=== PATIENT | female | born 1955 | race Caucasian/White ===

== ENCOUNTER 2018-02-20 17:41 | Observation (INO) ==
[2018-02-20 18:08] LABS: Microscopic, Urine URINE MICROSCOPIC (MICROSCOPIC)
[2018-02-20 18:11] LABS: Appearance,Urine CLOUDY (Clear); Blood, Urine TRACE-L (Negative); Color,Urine ORANGE (Yellow); Glucose,Urine (UA) Negative (Negative); Ketones,Urine 1+ (Negative); Leukocyte Esterase,Urine TRACE (Negative); Protein,Urine Negative (Negative); Specific Gravity, Urine 1.015 (1.005-1.030)
[2018-02-20 18:18] LABS: Bacteria,Urine 3+ /lpf; Mucus,Urine 2+ /lpf
[2018-02-20 18:19] LABS: Bilirubin,Urine Negative (Negative)
--- NOTE | 2018-02-20 18:23 | Emergency Department Note ---
ED Disposition Condition on Discharge: Fair - Critical Care Critical Care Time: No <Ana Elizabeth - Last Filed: 02/20/18 18:48> <Noah Lu - Last Filed: 02/20/18 20:49> Clinical Impression: Colitis Abdominal pain Qualifiers: Abdominal location: lower abdomen, unspecified Qualified Code(s): R10.30 - Lower abdominal pain, unspecified Diverticulosis Qualifiers: Diverticulosis site: diverticulosis of large intestine Diverticulosis bleeding : diverticulosis with bleeding Qualified Code(s): K57.31 - Diverticulosis of large intestine without perforation or abscess with bleeding Disposition: Still a Patient Referrals: Treva Abraham APRN [Primary Care Provider] - Attestation: On 02/20/18, the high probability of a clinically significant, sudden or life threatening deterioration of the following system(s) required my full and direct attention, intervention and personal management. The time I documented below is in addition to time spent performing reported procedures but includes the following listed in this critical care notation. Medical Decision Making - Levy Inquiry Pt receiving controlled substance: No Levy was queried for this patient: No <Ana Elizabeth - Last Filed: 02/20/18 18:48> - Lab Data Lab results reviewed: Yes: I reviewed the patient's lab results. Result diagrams: 02/20/18 18:30 02/20/18 18:30 - CT Data CT Scan: Abdomen, Pelvis Time Received: 20:[address] Reviewed: Yes: I have viewed the radiologist's interpretation Preliminary Findings: Abnormal (colitis) - Physician Consults Physician Consulted: oscar Reason -: Admission <Noah Lu - Last Filed: 02/20/18 20:49> Vital Signs: 02/20/18 17:48 02/20/18 18:43 Temperature 97.8 F 98.4 F Temperature Source Oral Oral Pulse Rate [Right Radial] 62 65 Respiratory Rate 16 16 Blood Pressure [Left Arm] 103/72 126/78 Blood Pressure Mean [Left Arm] 82 94 02 Sat by Pulse Oximetry 99 100 - Lab Data Lab Results 02/20/18 18:04: Urine Color [place], Urine Appearance Cloudy, Urine pH 7.0, Ur Specific [place] 1.015, Urine Protein Negative, Urine Glucose (UA) Negative, Urine Ketones 1+, Urine Blood Trace-l, Urine Nitrate Negative, Urine Bilirubin Negative, Urine Urobilinogen 4.0, Ur Leukocyte Esterase Trace, Urine WBC 10-20, Ur Squamous Epith Cells 5-10, Urine Bacteria 3+, Urine Mucus 2+ 02/20/18 18:30: WBC 10.1, RBC 5.40, Hgb 16.0, Hct 49.2 H, MCV 91.1, MCH 29.6, MCHC 32.5, RDW 12.8, Plt Count 258, MPV 8.1, Neut % (Auto) 75.5, Lymph % (Auto) 17.9, [place] % (Auto) 5.4, Eos % (Auto) 0.6, Baso % (Auto) 0.6, Neut # (Auto) 7.7 , Lymph # (Auto) 1.8, [place] # (Auto) 0.6, Eos # (Auto) 0.1, Baso # (Auto) 0.1 02/20/18 18:30: Sodium 138, Potassium 4.1, Chloride 99, Carbon Dioxide 27, Anion Gap 16.1 H, BUN 19 H, Creatinine 0.82, Estimated Creat Clear 83, Estimated GFR 70, Est GFR ( Amer) 85, Glucose 158 H, Calcium 9.7, Total Bilirubin 0.9, AST 14 L, ALT 24, Alkaline Phosphatase 86, Total Protein 8.3 H, Albumin 3.8, Globulin 4.5 H, Albumin/Globulin Ratio 0.8 L, Lipase 86 02/20/18 18:30: Magnesium 2.0 02/20/18 18:30: Lactic Acid 1.9 Orders (Tests/Meds): ED MEDICATIONS Discontinued Medications Generic Name Dose Route Start Last Admin Trade Name Freq PRN Reason Stop Dose Admin Sodium Chloride 1,000 mls @ 999 mls/hr 02/20/18 18:30 02/20/18 18:30 Sod Chlor 0.9% 1000ml Bag IV 02/20/18 19:30 999 mls/hr .Q1H1M CAT Administration Iopamidol 75 ml 02/20/18 20:02 02/20/18 20:04 [id number]; 75ml Vial IV 02/20/18 20:03 75 ml ONCE ONE Administration Morphine Sulfate 2 mg 02/20/18 18:18 02/20/18 18:30 Morphine 2mg/Ml Syringe IV 02/20/18 18:19 2 mg ONCE ONE Administration Ondansetron HCl 4 mg 02/20/18 18:18 02/20/18 18:30 Zofran 4mg/2ml Vial IV 02/20/18 18:19 4 mg ONCE ONE Administration Sodium Chloride 10 ml 02/20/18 20:02 02/20/18 20:04 Rad-Saline Flush 10ml Syringe IV 02/20/18 20:03 10 ml ONCE ONE Administration ORDERS Category Date Time Status CT abdomen pelvis w con Stat Cat Scan 02/20/18 18:18 Taken ESR [Erythrocyte Sedimentation Rate] Stat Lab 02/20/18 20:41 Ordered Blood Culture Stat Micro 02/20/18 18:30 Received Urine Culture Stat Micro 02/20/18 18:04 Received Abdominal Pain HPI - General Mode of Arrival: Ambulatory Limitations: No Limitations Description of Symptoms (Recalled from ER Triage Doc. by RN): LLQ ABD PAIN DIZZINESS AND LIGHTHEADEDNESS SINCE TUESDAY. VOMITING AN DIARRHEA SINCE YESTERDAY. PT HAS HX OF DIVERTICULOSIS. - History of Present Illness MD complaint: abdominal pain Onset (ago): day(s) (x 2 days.) Consistency: constant Severity: moderate Severity scale (1-10): 6 Quality: sharp Migration to: LLQ Relieving factors: nothing Exacerbating factors: vomiting Associated symptoms: nausea, vomiting, diarrhea <Ana Elizabeth - Last Filed: 02/20/18 18:48> <Noah Lu - Last Filed: 02/20/18 20:49> - General Chief Complaint: Abdominal Pain Stated Complaint: Abd pain Time Seen by Provider: 02/20/18 18:00 - History of Present Illness HPI narrative: 62 years old white female with history of diverticulosis and diverticulitis. For the past 2 days she has been experiencing left lower quadrant pain sharp in character associated with vomiting 4 a day diarrhea 2 a day. She denies having hematemesis coffee-ground emesis melanotic stool or bleeding per rectum. She feels that she is getting dehydrated and feeling dizzy. (Ana Elizabeth) - Related Data Home Medications Medication Instructions Recorded Confirmed Pantoprazole Sodium [Protonix 40mg 40 mg PO DAILY 02/20/18 02/20/18 tablet] Phentermine HCl [Adipex-P] 37.5 mg PO DAILY 02/20/18 02/20/18 Tramadol HCl [Ultram Take Home 1 tab PO NEEDED PRN 02/20/18 02/20/18 Pack 50mg (10)] Allergies Allergy/AdvReac Type Severity Reaction Status Date / Time codeine [CODEINE] Allergy Mild NA-NAUSEA/V Verified 02/20/18 17:57 OMITING hydrocodone [HYDROCODONE] Allergy Mild NA-NAUSEA/V Verified 02/20/18 17:57 OMITING [facility] History I have reviewed the patient's past medical history: Yes (Patient quit taking her medications because she is losing weight. ) Medical History: Reports:: Diabetes Mellitus Type 2 Denies:: Cancer, Diabetes Mellitus Type 1, MRSA Laterality Cases: Left: Total Knee Replacement Amputation: No - Social History Alcohol Intake: never - Psychiatric History Expresses thoughts of harming self/others: None Suicide Plan Description: No Plan <DaltonmaishaAna - Last Filed: 02/20/18 18:48> ROS Obtained: Yes All systems reviewed & no additional complaints <DaltonmaishaAugustinanaldo - Last Filed: 02/20/18 18:48> Physical Exam - General General appearance: alert, in no apparent distress - Head Head exam: atraumatic, normocephalic, normal inspection - Eye Eye exam: Present: normal appearance, PERRL, EOMI - ENT ENT exam: Present: normal exam, normal oropharynx, mucous membranes moist, TM's normal bilaterally, normal external ear exam - Neck Neck exam: Present: normal inspection, full ROM, trachea midline. Absent: meningismus, lymphadenopathy - Chest Chest inspection: Present: normal inspection, symmetric chest wall rise. Absent : tenderness - Respiratory Respiratory exam: Present: normal lung sounds bilaterally. Absent: respiratory distress - Cardiovascular Cardiovascular exam: Present: regular rate, normal rhythm. Absent: JVD - Abdominal Exam Abdominal exam: Present: soft, tenderness, normal bowel sounds, other (Soft obese abdomen with left lower quadrant tenderness no rebound or cross tenderness.). Absent: distention, guarding, rebound, rigidity, Rivas's sign, tenderness at McBurney's Point - Extremities Exam Extremities exam: Present: normal inspection, full ROM, normal capillary refill. Absent: calf tenderness - Back Exam Back exam: Present: normal inspection. Absent: tenderness - Neurological Exam Neurological exam: Present: alert, oriented X3, CN II-XII intact, motor sensory deficit, reflexes normal - Psychiatric Psychiatric exam: Present: normal affect, normal mood - Skin Skin exam: Present: warm, dry, intact, normal color - Lymphatic Lymphatic Findings: no adenopathy <Ana Elizabeth - Last Filed: 02/20/18 18:48>
[2018-02-20 18:53] LABS: Basophils # 0.1 K/mm3 (0-0.2); Basophils % 0.6 % (0.1-2.0); Eosinophils # 0.1 K/mm3 (0.0-0.4); Eosinophils % 0.6 % (0.1-12.0); Hematocrit 49.2 % (37.0-47.0); Lymphocytes # 1.8 K/mm3 (0.7-4.5); Lymphocytes % 17.9 K/mm3 (10-50); Mean Corpuscular HGB Conc 32.5 g/dL (31.8-35.4); Mean Corpuscular Hemoglobin 29.6 pg (27.0-31.2); Mean Corpuscular Volume 91.1 fl (81-99); Mean Platelet Volume 8.1 fl (7.4-10.4); Monocytes # 0.6 K/mm3 (0.1-1.0); Monocytes % 5.4 % (1.7-9.3); Neutrophils # 7.7 K/mm3 (1.8-7.8); Neutrophils % 75.5 % (37.0-80.0); Platelet Count 258 K/mm3 (142-424); Red Cell Distribution Width 12.8 % (11.5-17.5); White Blood Count 10.1 K/mm3 (4.8-10.8)
[2018-02-20 19:06] LABS: Albumin Level 3.8 gm/dL (3.4-5.0); Albumin/Globulin Ratio 0.8 (1.1-1.8); Anion Gap 16.1 mEq/L (5-15); Bilirubin,Total 0.9 mg/dL (0.2-1.0); Calcium 9.7 mg/dL (8.5-10.1); Globulin 4.5 gm/dl (1.3-3.2); Potassium 4.1 mmoL/L (3.5-5.1); Total Protein,Serum 8.3 gm/dL (6.4-8.2)
[2018-02-21 06:47] LABS: Basophils % 0.5 % (0.1-2.0); Eosinophils # 0.1 K/mm3 (0.0-0.4); Lymphocytes # 2.6 K/mm3 (0.7-4.5); Lymphocytes % 31.3 K/mm3 (10-50); Mean Corpuscular Hemoglobin 29.3 pg (27.0-31.2); Mean Corpuscular Volume 91.6 fl (81-99); Mean Platelet Volume 7.9 fl (7.4-10.4); Monocytes # 0.5 K/mm3 (0.1-1.0); Monocytes % 5.7 % (1.7-9.3); Neutrophils # 5.2 K/mm3 (1.8-7.8); Neutrophils % 61.5 % (37.0-80.0); Platelet Count 233 K/mm3 (142-424); Red Blood Count 4.61 M/mm3 (4.20-5.40); Red Cell Distribution Width 12.7 % (11.5-17.5); White Blood Count 8.4 K/mm3 (4.8-10.8)
[2018-02-21 06:54] LABS: Hematocrit 42.1 % (37.0-47.0); Hemoglobin 13.6 g/dL (12.2-16.2)
[2018-02-21 06:57] LABS: Anion Gap 8.9 mEq/L (5-15); Potassium 3.9 mmoL/L (3.5-5.1)
--- NOTE | 2018-02-21 07:24 | Pharmacy Consult Notes ---
[facility] Pharmacy VTE Monitoring - Patient Demographics Admission date: 02/20/18 Report Date: 02/21/18 Time: 07:24 Allergies/Adverse Reactions: Patient Allergies codeine [CODEINE] Allergy (Mild, Verified 02/20/18 17:57) NA-NAUSEA/VOMITING hydrocodone [HYDROCODONE] Allergy (Mild, Verified 02/20/18 17:57) NA-NAUSEA/VOMITING Height: 1.52 m Weight: 92.788 kg Patient Problems: Current Active Problems Diverticulosis (Acute) Abdominal pain (Acute) Colitis (Acute) - VTE Risk Labs: VTE Related Lab Results Hgb 13.6 g/dL (12.2-16.2) D 02/21/18 06:20 Hct 42.1 % (37.0-47.0) 02/21/18 06:20 Plt Count 233 K/mm3 (142-424) 02/21/18 06:20 BUN 14 mg/dL (7-18) D 02/21/18 06:20 Creatinine 0.68 mg/dL (0.55-1.02) 02/21/18 06:20 Estimated Creat Clear 84 mL/min (0-300) 02/21/18 06:20 Was VTE Risk Assessment Performed: Yes VTE Risk Level: Very Low Risk - Prophylaxis VTE Prophylaxis Ordered?: Yes Types of VTE Prophylaxis: TEDS Knee High Location of Applied Device: Bilateral Lower Extremeties - VTE Diagnosis Confirmed Treatment or plan recommended: Continue Current Treatment
--- NOTE | 2018-02-21 07:37 | History & Physical Report ---
*Admission Date: 02/20/18 *Chief complaint: Left lower quadrant abdominal *History of present illness: 62-year-old female with history of diverticulosis and diverticulitis presented to the emergency department with a 3 day history of left lower quadrant abdominal pain. Symptoms began on February 18 and were somewhat reminiscent of prior bouts of diverticulitis. Patient developed associated nausea and vomiting with inability to keep solids or liquids down. She denies fevers and has had infrequent episodes of diarrhea. When symptoms were not improving she sought treatment at the emergency department. In the emergency department workup was significant for a CT scan that revealed colitis of the descending colon without diverticulitis. Patient was admitted and placed on Levaquin and Flagyl as well as IV fluids. This morning she claims she is already feeling significantly improved. She denies nausea this morning. Last bowel movement was yesterday. [facility] History Medical History: Reports:: Diabetes Mellitus Type 2 (no insulin required, controled with diet) Denies:: Cancer, Diabetes Mellitus Type 1, MRSA Comment: Diverticulitis Laterality Cases: Left: Total Knee Replacement Other Surgeries: Yes: Appendectomy, Cholecystectomy Amputation: No - *Social History Educational Level: Completed GED/General Educational Development Smoking Status: Never smoker Alcohol Intake: never Occupational Status: employed Housing: house Household Members: children - Psychiatric History Expresses thoughts of harming self/others: None Suicide Plan Description: No Plan *Family Hx:: Asthma, Coronary Artery Disease, Diabetes, Hyperlipidemia, Hypertension, Stroke Review of Systems - Review of Systems Review of systems:: pertinent systems reviewed and negative unless documented below - Constitutional Reports chills, Denies fever(s) - *Gastrointestinal Reports abdominal pain Meds Home Medications Medication Instructions Recorded Confirmed Type Cholecalciferol (Vitamin D3) 50,000 unit PO DIRECTED 02/20/18 02/21/18 History [Vitamin D3 50,000 unit Cap] L.acidoph,Paracasei, B.lactis 1 each PO DAILY 02/20/18 02/20/18 History [Probiotic] Pantoprazole Sodium [Protonix 40mg 40 mg PO DAILY 02/20/18 02/20/18 History tablet] Phentermine HCl [Adipex-P] 37.5 mg PO DAILY 02/20/18 02/20/18 History Tramadol HCl [Ultram Take Home 1 tab PO NEEDED PRN 02/20/18 02/20/18 History Pack 50mg (10)] Allergies Allergy/AdvReac Type Severity Reaction Status Date / Time codeine [CODEINE] Allergy Mild NA-NAUSEA/V Verified 02/20/18 17:57 OMITING hydrocodone [HYDROCODONE] Allergy Mild NA-NAUSEA/V Verified 02/20/18 17:57 OMITING Exam Vital signs and Labs for Last 24 Hours: Temp Pulse Resp BP Pulse Ox 98.4 F 64 16 101/52 97 02/21/18 03:43 02/21/18 03:43 02/21/18 03:43 02/21/18 03:43 02/21/18 03:43 Laboratory Results - last 24 hr 02/21/18 06:20: WBC 8.4, RBC 4.61, Hgb 13.6 D, Hct 42.1, MCV 91.6, MCH 29.3, MCHC 32.0, RDW 12.7, Plt Count 233, MPV 7.9, Neut % (Auto) 61.5, Lymph % (Auto) 31.3, [place] % (Auto) 5.7, Eos % (Auto) 1.0, Baso % (Auto) 0.5, Neut # (Auto) 5.2 , Lymph # (Auto) 2.6, [place] # (Auto) 0.5, Eos # (Auto) 0.1, Baso # (Auto) 0.0 02/21/18 06:20: Sodium 139, Potassium 3.9, Chloride 107, Carbon Dioxide 27, Anion Gap 8.9, BUN 14 D, Creatinine 0.68, Estimated Creat Clear 84, Estimated GFR 87, Est GFR ( Amer) 106 D, Glucose 114 H D I & O for Last 24 hours: Intake & Output 02/18/18 02/19/18 02/20/18 02/21/18 11:59 11:59 11:59 11:59 Intake Total 705 / 705 Output Total 600 / 600 Balance 105 / 105 Weight 204 lb 9 oz Narrative: Patient appears comfortable. HEENT exam is grossly normal. Lungs are clear to auscultation. Heart has a regular rate and rhythm. Abdomen is obese, soft, nontender with normal bowel sounds. H&P: Result - Labs Labs: Short CBC 02/21/18 Range/Units 06:20 WBC 8.4 (4.8-10.8) K/mm3 Hgb 13.6 D (12.2-16.2) g/dL Hct 42.1 (37.0-47.0) % Plt Count 233 (142-424) K/mm3 BMP 02/21/18 06:20 Sodium 139 Potassium 3.9 Chloride 107 Carbon Dioxide 27 BUN 14 D Creatinine 0.68 Glucose 114 H D Assessment and Plan (1) Colitis Current visit: Yes Status: Acute Category: Medical Code(s): K52.9 - Noninfective gastroenteritis and colitis, unspecified - Assessment and plan all Dx Assessment and Plan for all problems:: 1. Continue IV fluids and antibiotics and advance diet to clears 2. Diarrhea panel if patient is able to produce one.
--- NOTE | 2018-02-21 20:21 | Discharge Summary ---
General - General Admission date: 02/20/18 Discharge date: 02/22/18 HPI HPI: 62-year-old female with history of diverticulosis and diverticulitis presented to the emergency department with a 3 day history of left lower quadrant abdominal pain. Symptoms began on February 18 and were somewhat reminiscent of prior bouts of diverticulitis. Patient developed associated nausea and vomiting with inability to keep solids or liquids down. She denies fevers and has had infrequent episodes of diarrhea. When symptoms were not improving she sought treatment at the emergency department. In the emergency department workup was significant for a CT scan that revealed colitis of the descending colon without diverticulitis. Patient was admitted and placed on Levaquin and Flagyl as well as IV fluids. This morning she claims she is already feeling significantly improved. She denies nausea this morning. Last bowel movement was yesterday. Hospital Course Hospital Course: Patient was admitted and placed on Levaquin and Flagyl. By the following morning of admission the patient's abdominal pain had resolved. Diet was advanced to clears which cause minimal nausea but no recurrence of pain. After an additional 24 hours of observation patient's pain still had not returned. Diet was advanced to low residue which the patient tolerated. Patient was discharged home. Objective Vital signs: Temp Pulse Resp BP Pulse Ox 98.7 F 71 18 124/82 97 02/21/18 15:26 02/21/18 15:26 02/21/18 15:26 02/21/18 15:26 02/21/18 15:26 Results Labs on day of discharge: Labs from last 24 hours 02/21/18 02/21/18 06:20 06:20 WBC 8.4 RBC 4.61 Hgb 13.6 D Hct 42.1 MCV 91.6 MCH 29.3 MCHC 32.0 RDW 12.7 Plt Count 233 MPV 7.9 Neut % (Auto) 61.5 Lymph % (Auto) 31.3 [place] % (Auto) 5.7 Eos % (Auto) 1.0 Baso % (Auto) 0.5 Neut # (Auto) 5.2 Lymph # (Auto) 2.6 [place] # (Auto) 0.5 Eos # (Auto) 0.1 Baso # (Auto) 0.0 Sodium 139 Potassium 3.9 Chloride 107 Carbon Dioxide 27 Anion Gap 8.9 BUN 14 D Creatinine 0.68 Estimated Creat Clear 84 Estimated GFR 87 Est GFR ( Amer) 106 D Glucose 114 H D DS: Diagnosis - Discharge Diagnosis (1) Colitis Status: Acute Discharge Plan - Patient Discharge Instructions ACTIVITY: Continue current activity DIET: continue same diet - Follow up Plan Disposition: Home, Self-Detention Medications: Home Medications Medication Instructions Recorded Confirmed Type Cholecalciferol (Vitamin D3) 50,000 unit PO WEEKLY 02/20/18 02/21/18 History [Vitamin D3 50,000 unit Cap] L.acidoph,Paracasei, B.lactis 1 each PO DAILY 02/20/18 02/20/18 History [Probiotic] Pantoprazole Sodium [Protonix 40mg 40 mg PO HS 02/20/18 02/21/18 History tablet] Phentermine HCl [Adipex-P] 37.5 mg PO DAILY 02/20/18 02/20/18 History Tramadol HCl [Ultram 50mg 50 mg PO NEEDED PRN 02/21/18 02/21/18 History tablet] Prescriptions/Medication Reconciliation: New metroNIDAZOLE [metroNIDAZOLE 500mg Tablet] 500 mg PO Q8 #21 tab Continue Phentermine HCl [Adipex-P] 37.5 mg PO DAILY Cholecalciferol (Vitamin D3) [Vitamin D3 50,000 unit Cap] 50,000 unit PO WEEKLY Pantoprazole Sodium [Protonix 40mg tablet] 40 mg PO HS L.acidoph,Paracasei, B.lactis [Probiotic] 1 each PO DAILY Tramadol HCl [Ultram 50mg tablet] 50 mg PO NEEDED PRN PRN Reason: PAIN
[2018-02-22 07:37] VITALS: BP 118/59
== END 2018-02-22 10:44 | disposition home or self-care (01) ==
LOC: ER 17:41 → 2ND 17:41
PROVIDERS: ADMIT Family Medicine; ATTEND Family Medicine

== ENCOUNTER → 2018-06-01 09:08 | Outpatient (CLI) | payer BC, SELFPAY ==
--- NOTE | 2018-06-01 09:08 | XR_ITS ---
XR foot wt bearing LT 3V, XR foot wt bearing RT 3V Ordering Physician: Trina Sanchez DPM Patient Age: 63 years: Female HISTORY: ITS.REASON: pain Foot pain. Right greater than left Diabetes. TECHNIQUE: Left foot 3 view weightbearing Right foot 3 view weightbearing ===== RIGHT FOOT 3 VIEW WEIGHTBEARINGS There are degenerative changes more evident here at the right foot. Joint space narrowing and sclerosis about the first are/metatarsal joint. With this there is slight dorsal buttressing hypertrophic changes at these joints is well as seen on the lateral view.. With a changes at these levels are clearly more evident right foot than left foot. On also note that they seem to have progressed since 2016 right foot study. . There is prominence at the medial aspect of first metatarsal head with perhaps trace hallux valgus again noted similar to 2010 study.Subtle broadening towards the base of third metatarsal which could reflect old trauma or old healed fracture here.. Correlation required. Modest plantar arch. . prominent Plantar calcaneal spur measuring over 10 mm length. Only scant wispy spurring at insertion of Achilles tendon IMPRESSION: 1. 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 .. Findings at this level clearly More pronounced at right foot than left. & Appear to progressed slightly since 2016 2.. Fairly prominent plantar calcaneal spur ==== LEFT FOOT 3 VIEW WEIGHTBEARING Toes unremarkable.The metatarsals intact. Joint spaces well-maintained. Only question some mild sclerotic changes at the first and second [id number]. Minimal plantar arch. IMPRESSION No prominent findings Only scant early arthritic changes first & second tarsal- metatarsal joint Fairly prominent plantar calcaneal spur
== END ==
PROVIDERS: Visit Provider Podiatrist
DX: M79.671 Pain in right foot (principal); M79.672 Pain in left foot
CPT/HCPCS: 73630

== ENCOUNTER → 2018-06-12 11:07 | Outpatient (CLI) | payer BC, SELFPAY ==
--- NOTE | 2018-06-12 11:12 | US_ITS ---
US Arterial Ankle Brachial Ind History: Rest pain, diabetes, ITS.REASON: skin changes ORDERING PHYSICIAN: Trina Sanchez DPM PATIENT AGE: 63 years TECHNIQUE: Segmental pressures obtained of both right and left leg. These are compared to brachial blood pressure to yield index at each level sampled including summary TAQUERIA. The data sheets from the procedure are available in PACS FINDINGS Rest study only performed today No prior studies available for comparison. Blood pressures reported are in millimeters mercury. RIGHT LEG TAQUERIA = 1.0. RIGHT LEG TBI=.9 Brachial BP: 142 Thigh BP: 150 Calf BP: 143 Ankle PT: 147 Ankle DP : 148 Digit =120 LEFT LEG TAQUERIA = 1.1 LEFT LEG TBI= .8 Brachial BPD: 134 Thigh BP: 144 Calf BP: 144 Ankle PT:149 Ankle DP: 144 Digit = 117 Pulses and waveforms: Normal IMPRESSION: The ABIs and TBI's as reported above are within normal limits. Waveforms and pulses are also unremarkable.
== END ==
PROVIDERS: Family Provider Nurse Practitioner; PCP Nurse Practitioner; Visit Provider Podiatrist
DX: R23.9 Unspecified skin changes (principal)
CPT/HCPCS: 93922

== ENCOUNTER → 2018-10-09 15:33 | Outpatient (POV) | payer BC, SELFPAY | PROVIDERS: Visit Provider Nurse Practitioner Acute Care | DX: Z00.00 Encounter for general adult medical examination without abnormal findings (principal) ==

== ENCOUNTER → 2019-06-25 10:59 | Outpatient (POV) | payer MEDICARE, OTHER, SELFPAY | PROVIDERS: Visit Provider Specialist | DX: M79.642 Pain in left hand (principal) | CPT/HCPCS: 95886; 95908 ==

== ENCOUNTER → 2019-09-24 16:27 | Outpatient (POV) | payer MEDICARE, OTHER, SELFPAY | PROVIDERS: PCP Nurse Practitioner Family; Visit Provider Nurse Practitioner Family | DX: Z00.00 Encounter for general adult medical examination without abnormal findings (principal) ==

== ENCOUNTER → 2020-03-07 07:52 | Outpatient (CLI) | payer MEDICARE, OTHER, SELFPAY ==
--- NOTE | 2020-03-07 07:54 | CA_ITS ---
APPROVED REPORT [employer]: Kavitha Hou RVT Laterality: Bilateral Study Quality: Excellent Indications: DIZZINESS,FALLS Risk Factors Hyperlipidemia Doppler Spectral Velocity Analysis ECA (R) 94.90/11.50 cm/s ECA (L) 75.40/11.70 cm/s dICA (R) 66.00/20.90 cm/s dICA (L) 69.50/25.90 cm/s Lilliana (R) 72.60/22.30 cm/s Lilliana (L) 74.30/31.20 cm/s pICA (R) 73.60/20.90 cm/s pICA (L) 83.50/25.30 cm/s dCCA (R) 94.30/19.50 cm/s dCCA (L) 77.10/16.20 cm/s pCCA (R) 111.50/23.90 cm/s pCCA (L) 86.10/22.20 cm/s Vert (R) 35.10/8.20 cm/s Vert (L) 35.30/13.30 cm/s ICA/CCA 0.78 ICA/CCA 1.08 Findings Study suggests less than 20% stenosis of the right internal cartoid artery. Study suggests no evidence of stenosis of the left internal cartoid artery. Antegrade flow seen bilateral vertebral arteries. Conclusion Study suggests less than 20% stenosis of the right internal cartoid artery. Study suggests no evidence of stenosis of the left internal cartoid artery Electronically signed by : Sacha Lopez MD 03/07/2020 16:31:28
--- NOTE | 2020-03-07 08:20 | MR_ITS ---
PROCEDURE: MR HEAD/BRAIN WO CON CLINICAL INDICATION: DIZZINESS, FREQUENT FALLS Dizziness, frequent falls, nausea COMPARISON: No exams were available for comparison TECHNIQUE: Routine multiplanar multi echo sequences are performed without gadolinium enhancement. FINDINGS: No midline shift, mass effect, intracranial hemorrhage, or hydrocephalus is evident. No evidence of acute infarction. The cerebellopontine angles, cerebellum, and brainstem have an unremarkable appearance. Nonspecific increased T2 signal intensity is present in the periventricular region small T2 white matter hyperintensities noted in the left frontal lobe suggesting minimal ischemic gliotic change from microvascular disease. No mastoid effusion apparent. No sinus air-fluid level. There is mild mucosal thickening of the ethmoid frontal, maxillary, and sphenoid sinuses. Partial empty sella is present as a normal variant. The optic chiasm, corpus callosum, and craniocervical junction have an unremarkable appearance. IMPRESSION: No acute intracranial findings. Mild sinus disease Dictated by: Sacha Lopez MD 03/08/2020 09:50 Electronically signed by Sacha Lopez MD in [place] 03/08/2020 09:50
== END ==
PROVIDERS: PCP Nurse Practitioner Family; Visit Provider Nurse Practitioner Family
DX: R42 Dizziness and giddiness (principal); R29.6 Repeated falls
CPT/HCPCS: 70551; 93880

== ENCOUNTER → 2020-03-10 07:56 | Outpatient (CLI) | payer MEDICARE, OTHER, SELFPAY ==
--- NOTE | 2020-03-10 08:02 | CT_ITS ---
PROCEDURE: CT ELBOW LT WO CON CLINICAL HISTORY: LIPOMA OF LT UPPER EXTREMITY Left elbow pain and tenderness COMPARISON: No exams were available for comparison TECHNIQUE: Axial images obtained with sagittal and coronal reformats. All CT scans at the facility use one or more dose reduction, viz: automated exposure control, ma/kV adjustment per patient size (including targeted exams where dose is matched to indication, i.e. head), or iterative reconstruction technique. FINDINGS: No fracture or dislocation is evident. No lytic or blastic change. There are minimal osteoarthritic changes at the elbow with minimal spurring the trochlea and coronoid process. A BB is placed over the area of pain and tenderness along the medial aspect the distal arm. There are no soft tissue abnormalities deep to this region. No fluid collections are evident. There is no evidence of displaced fat pad IMPRESSION: Mild osteoarthritic changes of the elbow otherwise negative Dictated by: Sacha Lopez MD 03/11/2020 09:42 Electronically signed by Sacha Lopez MD in [facility] 03/11/2020 09:42
== END ==
PROVIDERS: PCP Nurse Practitioner; Visit Provider Nurse Practitioner Family
DX: R55 Syncope and collapse (principal); D17.22 Benign lipomatous neoplasm of skin and subcutaneous tissue of left arm
CPT/HCPCS: 73200; 93270

== ENCOUNTER → 2020-03-12 06:48 | Outpatient (CLI) | payer MEDICARE, OTHER, SELFPAY ==
--- NOTE | 2020-03-12 06:48 | CA_ITS ---
APPROVED REPORT Exam: Pharmacologic Technologist: Patti Thapa Ht: 5 ft 0 in Wt: 205 lbs BSA: 1.89 m2 HR: 135 bpm BP: 74/ mmHg Indications: Chest pain, Shortness of Breath Medical History Medications: Tramadol,,,,, Famotidine,,,,, Meclizine,,,,, Stress Test Details Test: LEXISCAN HR Resting HR: 65 bpm Max Heart Rate (APMHR): 155 bpm Max HR Achieved: 104 bpm Target HR (85% APMHR): 131 bpm % of APMHR: 67 Recovery HR: 89 bpm BP Resting BP: 135.0/74.0 mmHg Max BP: 139.0/73.0 mmHg Recovery BP: 128.0/70.0 mmHg ECG Clinical Exercise duration: 04:12 min Highest Stage Achieved: Stress ECG Conclusion Resting ECG: Sinus rhythm Lexiscan portion completed. Patient complained of shortness of breath during infusion. Resolved in recovery. Symptoms: Shortness of breath during infusion. Resolved in recovery. No chest pain. Arrhythmias/Ectopy: No ectopy ST-T Changes: Less than 1.[address] depression. Conclusion: Images to follow. Electronically signed by : Marcello Gonzalez, 03/13/2020 10:29:15
--- NOTE | 2020-03-12 06:48 | NM_ITS ---
APPROVED REPORT Exam: Nuclear Stress Test Indication: obesity, d.m., hyperlipidemia, c.p., sob, palpitations, syncope, abn ekg Patient Location: Outpatient Stress Tech: Patti Thapa NM Tech:Kim Thapa, ARRT RT (R)(N)(M) Ht: 5 ft 0 in Wt: 205 lbs Bra Size: 42D HR: 64 bpm BP: 135/74 mmHg BSA: 1.89 m2 History: obesity, d.m., hyperlipidemia, c.p., sob, palpitations, syncope, abn ekg Procedure: Patient received a 0.4 mg of intravenous Lexiscan, resting heart rate 64 bpm, resting blood pressure 135/74 mmHg, with Lexiscan maximum heart rate achived was 99 bpm which is Less than 85 % of the maximum predicted heart rate and blood pressure was 139/73 mmHg. Electrocardiogram Resting electrocardiogram showed sinus rhythm nonspecific ST-T changes, with Lexiscan there is less than 1.[address] segment depression noted from the baseline EKG. The EKG portion of the Lexiscan Myoview is nondiagnostic. Cardiac Stress and Resting SPECT Images: Cardiac Stress and Resting SPECT images were obtained using technetium 99m Myoview 31.2 mCi stress and 10.65 mCi at rest. Gated SPECT with analysis of segmental wall motion and calculation of the ejection fraction also done. Cardiac stress and resting SPECT images show mild fixed defect in the anterior wall with the perfusion of the apex being normal with normal contractility and the gated SPECT is likely secondary to soft tissue attenuation. Computer derived ejection fraction is over 65% with no regional wall motion abnormality, however there appears to be transient ischemic dilatation of the left ventricle raising the concerns for presence of balanced ischemia and multivessel coronary artery disease. Right ventricle is normal size and contractility. Conclusion: 1. The EKG portion of the Lexiscan Myoview is nondiagnostic. 2. No scintigraphic evidence of reversible ischemia seen, fixed defect in the anterior wall is likely secondary to soft tissue attenuation. However there appears to be transient ischemic dilatation of the left ventricle raising the concerns for presence of balanced ischemia and multivessel coronary artery disease. Right ventricle is normal size and contractility. 3. Likely abnormal Lexiscan Myoview study. Electronically signed by : Marcello Gonzalez, 03/13/2020 10:32:38
--- NOTE | 2020-03-12 06:48 | CA_ITS ---
APPROVED REPORT EXAM: Comprehensive 2D, Doppler, and color-flow Echocardiogram Programming Engineer: Kavitha Hou RVT Ht: 5 ft 0 in Wt: 207lbs BSA: 1.89 BP: 133/69 mmHg Indications: CP,SOA,PALPS,NEAR SYNCOPE,HLD,DM,ABN EKG,GERD TDS 2D Dimensions LVOT 1.93 cm (M/F) 1.5-2.5 M-Mode Dimensions RVDd 3.11 cm (0.9-2.6) LVDd 3.83 cm (3.5-5.7) LVDs 2.61 cm (3.5-5.7) IVSd 1.32 cm (0.6-1.1) PWd 1.00 cm (0.6-1.1) EF (Teich) 60.70% FS 31.90% EDV (Teich) 63.10 mL ESV (Teich) 24.80 mL LV Diastology E/A Ratio 0.94 Mitral Valve MV A Velocity 62.00 (40-130 cm/s) Left Ventricle Left atrium is normal size, left ventricle is normal size, there is no concentric left ventricular hypertrophy, visually estimated ejection fraction 55% with no regional wall motion abnormality. Diastolic parameters are inconclusive Right Ventricle Right atrium right ventricular normal size and contractility. Aortic Valve Aortic valve is grossly normal. There is no aortic stenosis or aortic insufficiency. Mitral Valve Mitral valve is grossly normal, there is mild mitral regurgitation. Tricuspid Valve Tricuspid valve grossly normal, there is trace tricuspid regurgitation. Tricuspid regurgitation jet velocity is inadequate for calculation of the right ventricular systolic pressure. Pulmonic Valve Pulmonic valve is poorly visualized. Great Vessels Aortic root is normal size. Pericardium No significant pericardial effusion noted. Conclusion 1. Normal left ventricular size, preserved left ventricular systolic function, visually estimated ejection fraction 55% with no regional wall motion abnormality, diastolic parameters are inconclusive. 2. Mild mitral and tricuspid regurgitation. 3. No significant pericardial effusion noted. Electronically signed by : Marcello Gonzalez, 03/13/2020 11:54:19
== END ==
PROVIDERS: PCP Nurse Practitioner; Visit Provider Nurse Practitioner Family
DX: E11.69 Type 2 diabetes mellitus with other specified complication (principal); K21.9 Gastro-esophageal reflux disease without esophagitis; R00.2 Palpitations; R07.9 Chest pain, unspecified; R94.31 Abnormal electrocardiogram [ECG] [EKG]; Z82.49 Family history of ischemic heart disease and other diseases of the circulatory system; R55 Syncope and collapse
CPT/HCPCS: 78452; 93017; 93306; A9502; J2785

== ENCOUNTER 2020-03-25 08:34 | Day surgery (SDC) | payer MEDICARE, OTHER, SELFPAY ==
[2020-03-25] VITALS (16 sets, daily range): BP systolic 112–157; BP diastolic 63–102; PULSE 62–85; RESP 10–16; TEMP 36.7; O2SAT 92–99; BMI 41.3
[2020-03-25 09:06] LABS: Chloride 101 mmol/L (98-107); Sodium 139 mmol/L (136-145)
[2020-03-25 09:07] LABS: Potassium 4.5 mmoL/L (3.5-5.1)
[2020-03-25 09:09] LABS: Basophils # 0.2 K/mm3 (0-0.2); Basophils % 1.6 % (0.1-2.0); Blood Urea Nitrogen 16 mg/dl (7-17); Creatinine Clearance Estimated 40 mL/min (50-200); Eosinophils # 0.4 K/mm3 (0.0-0.4); Eosinophils % 4.2 % (0.1-12.0); Estimated Glomerular Filt Rate 72 ml/min (>60); GFR (African American) 87 ML/MIN (>60); Hematocrit 46.2 % (37.0-47.0); Hemoglobin 14.8 g/dL (12.2-16.2); Lymphocytes % 31.7 % (10-50); Mean Corpuscular HGB Conc 32.1 g/dL (31.8-35.4); Mean Corpuscular Volume 90.3 fl (81-99); Mean Platelet Volume 8.1 fl (7.4-10.4); Monocytes # 0.5 K/mm3 (0.1-1.0); Monocytes % 5.8 % (1.7-9.3); Neutrophils # 5.3 K/mm3 (1.8-7.8); Neutrophils % 56.7 % (37.0-80.0); Platelet Count 310 K/mm3 (142-424); Red Blood Count 5.12 M/mm3 (4.20-5.40); Red Cell Distribution Width 13.7 % (11.5-17.5); White Blood Count 9.3 K/mm3 (4.8-10.8)
[2020-03-25 09:10] LABS: Anion Gap 13.5 mEq/L (5-15); Calcium 10.1 mg/dl (8.4-10.2); Carbon Dioxide 29 mmol/L (22.0-30.0); Glucose 183 mg/dl (74-100)
--- NOTE | 2020-03-25 10:15 | IR_ITS ---
APPROVED REPORT Patient Location: Outpatient Commercial Energy Auditor: ZULAY Pascual RT (R) PROCEDURES Left heart catheterization Left ventriculogram Selective coronary angiogram Drug-eluting stent deployment to the proximal LAD Drug-eluting stent deployment to the distal dominant right coronary INDICATION High risk abnormal Myoview with transient ischemic left ventricular dilatation, Multivessel coronary disease Informed consent was obtained prior to the procedure. COMPLICATIONS NONE Estimated Blood Loss: LESS THAN 10 ML TECHNIQUE One percent lidocaine used to anesthetize the right anterior aspect of the wrist. The right radial artery was accessed via the Seldinger technique. A 6 Cuban sheath was placed in the right radial artery. 2.5 mg of verapamil, 800 mcg of nitroglycerin, 1mg Lidocaine and 5000 U Heparin were given through the arterial sheath. The trap catheter was also used to perform left heart catheterization, left ventriculogram and selective coronary angiogram. At the end of the diagnostic procedure additional heparin was administered giving a therapeutic ACT. And I Michelle left guide catheter was used to intubate the left main artery and a BMW wire was placed distal to the stenosis. A 2.5 x 12 mm resolute judd stent was deployed at 20 estefania in the proximal segment. A 3.5 x 8 mm noncompliant balloon was then deployed at 24 estefania in the stent reducing the stenosis to 0%. ISIDRA-3 flow was present before and after the procedure. At the end of the procedure the apparatus was removed the same catheter was used to intubate the right coronary artery and a wire was placed distally. A 3.5 x 12 mm resolute judd stent was deployed at 16 estefania reducing the severe stenosis to 0%. ISIDRA-3 flow was present before and after the procedure. At the end of the procedure the apparatus was removed the sheath was removed good hemostasis was achieved using TR banding patient was transferred to the postop holding her in stable condition ANGIOGRAPHIC RESULTS The left main artery Normal The left anterior descending artery Has a proximal 70% stenosis followed by a mid vessel 30% stenosis immediately distal to the first diagonal artery and first septal administrative library assistant. The remaining LAD has a additional mid vessel 30 to 40% stenosis. Large first diagonal artery has a mid vessel 50% stenosis The circumflex artery Is a nondominant vessel with mid vessel 30 to 40% stenosis The right coronary artery Is a large dominant vessel and has a proximal 20% stenosis in the distal 60 to 70% stenosis The PATEL ventriculogram reveals Normal 65% The left ventricular end-diastolic pressure 10 mmHg IMPRESSION Severe two-vessel coronary disease as described above which accounts for the high risk abnormal Myoview Successful stenting of the proximal LAD severe disease reduced to 10% with one drug-eluting stent Successful stenting of the distal dominant right coronary severe disease reduced to 0% with one drug-eluting stent Normal ejection fraction Normal left ventricular end-diastolic pressure PLAN 1. Brilinta and aspirin 2. LDL less than 55 3. Cardiac rehabilitation 4. Avoidance of tobacco products 5. Risk factor modification Electronically signed by : Dallas Arvizu, 03/25/2020 14:02:16
--- NOTE | 2020-03-25 14:41 | HMH.PHACLD ---
Cecilia Anderson has received discharge medication counseling on the following medications: PATIENT STARTED ON NEW PRESCRIPTIONS FOR ATORVASTATIN 40 MG HS, BRILINTA 90 MG BID, ASPIRIN 81 MG DAILY, AND RAMIPRIL 5 MG DAILY. MD NOT STARTING BETA GERTRUDE DUE TO HX OF BRADYCARDIA.
[2020-03-25 15:50] LABS: CATHL Activated Clotting Time 387 SEC (74-125)
== END 2020-03-25 14:48 | disposition home or self-care (01) ==
LOC: CATHLAB 08:35
PROVIDERS: PCP Nurse Practitioner; Visit Provider Internal Medicine
DX: E11.69 Type 2 diabetes mellitus with other specified complication (principal); K21.9 Gastro-esophageal reflux disease without esophagitis; R00.2 Palpitations; R06.02 Shortness of breath; R55 Syncope and collapse; R94.31 Abnormal electrocardiogram [ECG] [EKG]; R94.39 Abnormal result of other cardiovascular function study; Z82.49 Family history of ischemic heart disease and other diseases of the circulatory system; I25.118 Atherosclerotic heart disease of native coronary artery with other forms of angina pectoris; Z88.5 Allergy status to narcotic agent; Z79.899 Other long term (current) drug therapy
CPT/HCPCS: 80048; 85025; 85347; 92928; 93458; 99152; 99153; C1725; C1769; C1876; C9600; J1644; J2405; Q9967

== ENCOUNTER → 2020-04-02 14:14 | Outpatient (CLI) | payer MEDICARE, OTHER, SELFPAY ==
[2020-04-02 14:29] LABS: Basophils # 0.1 K/mm3 (0-0.2); Basophils % 0.7 % (0.1-2.0); Eosinophils # 0.2 K/mm3 (0.0-0.4); Eosinophils % 1.9 % (0.1-12.0); Hematocrit 47.9 % (37.0-47.0); Hemoglobin 14.8 g/dL (12.2-16.2); Lymphocytes # 2.4 K/mm3 (0.7-4.5); Lymphocytes % 21.3 % (10-50); Mean Corpuscular Hemoglobin 29.3 pg (27.0-31.2); Mean Corpuscular Volume 94.7 fl (81-99); Mean Platelet Volume 8.8 fl (7.4-10.4); Monocytes # 0.4 K/mm3 (0.1-1.0); Monocytes % 3.8 % (1.7-9.3); Neutrophils % 72.2 % (37.0-80.0); Platelet Count 259 K/mm3 (142-424); Red Blood Count 5.06 M/mm3 (4.20-5.40); Red Cell Distribution Width 13.3 % (11.5-17.5); White Blood Count 11.1 K/mm3 (4.8-10.8)
[2020-04-02 17:47] LABS: Chloride 105 mmol/L (98-107); Sodium 137 mmol/L (136-145)
[2020-04-02 17:48] LABS: Potassium 5.2 mmoL/L (3.5-5.1)
[2020-04-02 17:50] LABS: Blood Urea Nitrogen 12 mg/dl (7-17); Estimated Glomerular Filt Rate 84 ml/min (>60); GFR (African American) 102 ML/MIN (>60)
[2020-04-02 17:51] LABS: Anion Gap 11.2 mEq/L (5-15); Calcium 9.6 mg/dl (8.4-10.2); Carbon Dioxide 26 mmol/L (22.0-30.0); Glucose 134 mg/dl (74-100)
== END ==
PROVIDERS: Visit Provider Internal Medicine
DX: I10 Essential (primary) hypertension (principal)
CPT/HCPCS: 36415; 80048; 85025

== ENCOUNTER 2020-04-15 09:56 | Outpatient (RCR) | payer MEDICARE, OTHER, SELFPAY | END 2020-06-16 11:07 | disposition home or self-care (01) | LOC: PT 09:56 | PROVIDERS: Visit Provider Internal Medicine | DX: Z95.5 Presence of coronary angioplasty implant and graft (principal) | CPT/HCPCS: 93798 ==

== ENCOUNTER → 2020-04-17 12:50 | Outpatient (CLI) | payer MEDICARE, OTHER, SELFPAY ==
[2020-04-17 15:49] LABS: Blood Urea Nitrogen 17 mg/dl (7-17); Calcium 9.4 mg/dl (8.4-10.2); Carbon Dioxide 24 mmol/L (22.0-30.0); Chloride 106 mmol/L (98-107); Estimated Glomerular Filt Rate 84 ml/min (>60); GFR (African American) 102 ML/MIN (>60); Glucose 194 mg/dl (74-100); Sodium 137 mmol/L (136-145)
== END ==
PROVIDERS: Nurse Practitioner Family; Visit Provider Internal Medicine
DX: I10 Essential (primary) hypertension (principal)
CPT/HCPCS: 36415; 80048

== ENCOUNTER → 2020-06-09 11:46 | Outpatient (CLI) | payer MEDICARE, OTHER, SELFPAY ==
[2020-06-09 12:36] LABS: Alanine Aminotransferase 19 U/L (12-78); Albumin Level 3.8 g/dl (3.5-5.0); Alkaline Phosphatase 100 U/L (38-126); Aspartate Amino Transferase 21 U/L (14-36); Bilirubin,Direct 0.1 mg/dl (0.0-0.4); Bilirubin,Indirect 0.8 mg/dL (0.0-0.9); Bilirubin,Total 0.9 mg/dl (0.2-1.3); Bilirubin,Unconjugated 0.9 mg/dL (0.0-1.1); Chol/HDL Ratio 2.8 (1-3.5); Cholesterol 187 mg/dl (140-200); HDL Cholesterol 68 mg/dl (40-60); Total Protein,Serum 6.8 g/dl (6.3-8.2); Triglycerides 129 mg/dl (30-150); VLDL Cholesterol 26 mg/dL (0-40)
[2020-06-09 12:48] LABS: Direct LDL Cholesterol 102.24 mg/dL (100-129)
== END ==
PROVIDERS: Visit Provider Nurse Practitioner Family
DX: E11.69 Type 2 diabetes mellitus with other specified complication (principal); E78.2 Mixed hyperlipidemia; I25.10 Atherosclerotic heart disease of native coronary artery without angina pectoris; K21.9 Gastro-esophageal reflux disease without esophagitis; R06.02 Shortness of breath; R42 Dizziness and giddiness; R94.31 Abnormal electrocardiogram [ECG] [EKG]; Z82.49 Family history of ischemic heart disease and other diseases of the circulatory system; Z95.5 Presence of coronary angioplasty implant and graft
CPT/HCPCS: 36415; 80061; 80076

== ENCOUNTER → 2020-06-24 14:57 | Outpatient (CLI) | payer MEDICARE, OTHER, SELFPAY | PROVIDERS: PCP Nurse Practitioner; Visit Provider Nurse Practitioner Family | DX: Z03.818 Encounter for observation for suspected exposure to other biological agents ruled out (principal) | CPT/HCPCS: U0003 ==

== ENCOUNTER → 2020-08-18 09:39 | Outpatient (CLI) | payer MEDICARE, OTHER, SELFPAY ==
[2020-08-18 10:50] LABS: Alanine Aminotransferase 18 U/L (12-78); Albumin Level 4.2 g/dl (3.5-5.0); Alkaline Phosphatase 106 U/L (38-126); Aspartate Amino Transferase 21 U/L (14-36); Bilirubin,Direct 0.2 mg/dl (0.0-0.4); Bilirubin,Indirect 0.4 mg/dL (0.0-0.9); Bilirubin,Total 0.6 mg/dl (0.2-1.3); Bilirubin,Unconjugated 0.3 mg/dL (0.0-1.1); Chol/HDL Ratio 3.2 (1-3.5); Cholesterol 198 mg/dl (140-200); HDL Cholesterol 62 mg/dl (40-60); Total Protein,Serum 7.2 g/dl (6.3-8.2); Triglycerides 193 mg/dl (30-150); VLDL Cholesterol 39 mg/dL (0-40)
[2020-08-18 11:01] LABS: Direct LDL Cholesterol 114.79 mg/dL (100-129)
== END ==
PROVIDERS: Visit Provider Nurse Practitioner Family
DX: E78.5 Hyperlipidemia, unspecified (principal); I25.10 Atherosclerotic heart disease of native coronary artery without angina pectoris; R42 Dizziness and giddiness; R94.31 Abnormal electrocardiogram [ECG] [EKG]; Z95.5 Presence of coronary angioplasty implant and graft
CPT/HCPCS: 36415; 80061; 80076

== ENCOUNTER → 2020-10-14 15:49 | Outpatient (CLI) | payer MEDICARE, OTHER, SELFPAY ==
[2020-10-16 10:00] LABS: Covid-19 Nasal PCR Sendout Lex NOT DETECTED
== END ==
PROVIDERS: PCP Nurse Practitioner Family; Visit Provider Nurse Practitioner Family
DX: Z03.818 Encounter for observation for suspected exposure to other biological agents ruled out (principal)
CPT/HCPCS: U0004

== ENCOUNTER → 2020-10-28 10:46 | Outpatient (CLI) | payer MEDICARE, OTHER, SELFPAY ==
--- NOTE | 2020-10-28 10:51 | XR_ITS ---
PROCEDURE: XR CHEST 2V CLINICAL HISTORY: COUGH COMPARISON: No exams were available for comparison FINDINGS: The cardiomediastinal silhouette and pulmonary vascularity are within normal limits. Patchy density is noted in the left mid lower lung suggesting an area of infiltrate. The remaining lungs are clear. No acute bony abnormalities. IMPRESSION: Patchy left lower lobe infiltrate Dictated by: Sacha Lopez MD 10/28/2020 15:05 Sacha Lopez MD in [place] 10/28/2020 15:05
== END ==
PROVIDERS: PCP Nurse Practitioner; Visit Provider Nurse Practitioner
DX: R05 Cough (principal)
CPT/HCPCS: 71046

== ENCOUNTER → 2020-11-05 15:06 | Outpatient (CLI) | payer MEDICARE, OTHER, SELFPAY ==
--- NOTE | 2020-11-06 10:04 | PC.NURSE ---
message left on pts voicemail at this time asking for a call back to notify her of covid results per Dr. Lu's request
== END ==
PROVIDERS: PCP Nurse Practitioner; Visit Provider Nurse Practitioner
DX: Z20.828 Contact with and (suspected) exposure to other viral communicable diseases (principal); U07.1 COVID-19
CPT/HCPCS: U0003

== ENCOUNTER → 2020-11-26 12:06 | Outpatient (CLI) | payer MEDICARE, OTHER, SELFPAY ==
[2020-11-26 13:41] LABS: Alanine Aminotransferase 17 U/L (12-78); Alkaline Phosphatase 85 U/L (38-126); Aspartate Amino Transferase 21 U/L (14-36); Bilirubin,Direct 0.2 mg/dl (0.0-0.4); Bilirubin,Indirect 0.6 mg/dL (0.0-0.9); Bilirubin,Total 0.8 mg/dl (0.2-1.3); Bilirubin,Unconjugated 0.5 mg/dL (0.0-1.1); Chol/HDL Ratio 2.9 (1-3.5); Cholesterol 203 mg/dl (140-200); HDL Cholesterol 69 mg/dl (40-60); Triglycerides 129 mg/dl (30-150); VLDL Cholesterol 26 mg/dL (0-40)
[2020-11-26 13:52] LABS: Direct LDL Cholesterol 109.11 mg/dL (100-129)
[2020-11-26 14:25] LABS: Coronavirus 19 IgG Antibody Positive (Negative)
[2020-11-26 14:28] LABS: Coronavirus 19 IgM Antibody Positive (Negative)
== END ==
PROVIDERS: Visit Provider Physician Assistant
DX: E78.2 Mixed hyperlipidemia (principal); Z79.899 Other long term (current) drug therapy; Z86.16 Personal history of COVID-19; Z20.822 Contact with and (suspected) exposure to COVID-19
CPT/HCPCS: 36415; 80061; 80076; 86328

== ENCOUNTER → 2020-12-09 15:28 | Outpatient (CLI) | payer MEDICARE, OTHER, SELFPAY ==
--- NOTE | 2020-12-09 15:37 | XR_ITS ---
PROCEDURE: XR SHOULDER RT MIN 2V CLINICAL INDICATION: PAIN IN RT SHOULDER, DECREASED ROM OF RT SHOULDER COMPARISON: No exams were available for comparison FINDINGS: No fracture or dislocation. No lytic or blastic change. There is normal mineralization. There are mild osteoarthritic changes the acromioclavicular joint and glenohumeral joint Other findings:None. IMPRESSION: Mild osteoarthritis otherwise negative Dictated by: Sacha Lopez MD 12/09/2020 19:57 Sacha Lopez MD in [place] 12/09/2020 19:57
--- NOTE | 2020-12-09 15:37 | XR_ITS ---
PROCEDURE: XR CERVICAL SPINE 5V CLINICAL INDICATION: DECREASED ROM OF NECK COMPARISON: No exams were available for comparison FINDINGS: No fracture or dislocation. No lytic or blastic change. There is normal mineralization. There is degenerative disc disease at C5-C6 and C6-C7 small anterior osteophytes at C5 and C6. Foraminal narrowing is on the left at C6-C7 . Mild facet hypertrophic changes are present C5 Other findings:No evidence of cervical rib. IMPRESSION: Mild degenerative changes as described Dictated by: Sacha Lopez MD 12/09/2020 19:55 Sacha Lopez MD in [place] 12/09/2020 19:55
--- NOTE | 2020-12-09 15:37 | XR_ITS ---
PROCEDURE: XR CHEST 2V CLINICAL HISTORY: PNUEMONIA COMPARISON: CR XR CHEST 2V from 10/28/2020 FINDINGS: The cardiomediastinal silhouette and pulmonary vascularity are within normal limits. The lungs are clear without infiltrates, suspicious nodules, or pleural effusions. Mild thoracic scoliosis convex right IMPRESSION: No acute findings. Dictated by: Sacha Lopez MD 12/09/2020 20:00 Sacha Lopez MD in [place] 12/09/2020 20:00
== END ==
PROVIDERS: PCP Nurse Practitioner Family; Visit Provider Nurse Practitioner Family
DX: M25.511 Pain in right shoulder (principal); M25.611 Stiffness of right shoulder, not elsewhere classified; R29.898 Other symptoms and signs involving the musculoskeletal system; J18.9 Pneumonia, unspecified organism
CPT/HCPCS: 71046; 72050; 73030

== ENCOUNTER → 2021-03-03 10:28 | Outpatient (CLI) | payer MEDICARE, OTHER, SELFPAY ==
[2021-03-03 10:57] LABS: Chloride 103 mmol/L (98-107); Potassium 4.9 mmoL/L (3.5-5.1); Sodium 138 mmol/L (136-145)
[2021-03-03 10:59] LABS: Amylase 54 U/L (30-110)
[2021-03-03 11:00] LABS: Alanine Aminotransferase 17 U/L (12-78); Albumin Level 4.5 g/dl (3.5-5.0); Albumin/Globulin Ratio 1.5 (1.1-1.8); Alkaline Phosphatase 101 U/L (38-126); Anion Gap 13.9 mEq/L (5-15); Aspartate Amino Transferase 21 U/L (14-36); Bilirubin,Total 1.2 mg/dl (0.2-1.3); Blood Urea Nitrogen 12 mg/dl (7-17); Calcium 9.7 mg/dl (8.4-10.2); Carbon Dioxide 26 mmol/L (22.0-30.0); Estimated Glomerular Filt Rate 84 ml/min (>60); GFR (African American) 101 ML/MIN (>60); Globulin 3.1 g/dL (1.3-3.2); Glucose 189 mg/dl (74-100); Lipase 91 U/L (23-300); Total Protein,Serum 7.6 g/dl (6.3-8.2)
[2021-03-03 11:02] LABS: Basophils # 0.1 K/mm3 (0-0.2); Basophils % 0.8 % (0.1-2.0); Eosinophils # 0.3 K/mm3 (0.0-0.4); Eosinophils % 3.2 % (0.1-12.0); Hematocrit 45.7 % (37.0-47.0); Hemoglobin 14.9 g/dL (12.2-16.2); Lymphocytes # 2.1 K/mm3 (0.7-4.5); Lymphocytes % 23.6 % (10-50); Mean Corpuscular HGB Conc 32.6 g/dL (31.8-35.4); Mean Corpuscular Hemoglobin 29.3 pg (27.0-31.2); Mean Corpuscular Volume 89.8 fl (81-99); Mean Platelet Volume 8.1 fl (7.4-10.4); Monocytes # 0.5 K/mm3 (0.1-1.0); Monocytes % 5.1 % (1.7-9.3); Neutrophils # 6.1 K/mm3 (1.8-7.8); Neutrophils % 67.2 % (37.0-80.0); Platelet Count 257 K/mm3 (142-424); Red Blood Count 5.09 M/mm3 (4.20-5.40); Red Cell Distribution Width 13.1 % (11.5-17.5)
== END ==
PROVIDERS: Visit Provider Nurse Practitioner Family
DX: R10.10 Upper abdominal pain, unspecified (principal); R63.0 Anorexia
CPT/HCPCS: 36415; 80053; 82150; 83690; 85025

== ENCOUNTER → 2021-03-06 10:51 | Outpatient (CLI) | payer MEDICARE, OTHER, SELFPAY ==
--- NOTE | 2021-03-06 10:54 | CT_ITS ---
PROCEDURE: CT ABDOMEN W CON CLINICAL HISTORY: UPPER ABD PAIN, DECREASED APPETITE, S/P BARIATRIC SURGERY COMPARISON: CT ABDPELW/O CT ABD PELVIS W/O CONTRAST from 05/10/[address] abdomen pelvis w con from 02/20/2018 TECHNIQUE: Axial images obtained with sagittal and coronal reformats. All CT scans at the facility use one or more dose reduction, viz: automated exposure control, ma/kV adjustment per patient size (including targeted exams where dose is matched to indication, i.e. head), or iterative reconstruction technique. FINDINGS: Minimal atelectatic or fibrotic change noted within the lingula. Prior cholecystectomy. Liver, spleen, adrenal glands, and pancreas have an unremarkable appearance. There is scarring of the left kidney posteriorly with some parenchymal calcification noted at that region. There is a 9 mm stone in the lower pole of the left kidney. There postsurgical changes of the stomach a staple line at the proximal aspect of the stomach. No evidence of obstruction. Oral contrast fills the distal and mid aspect of the stomach as well as the small bowel. The proximal gastric pouch does not appear over distended there is a focal area of thickening involving the antrum of the stomach. This may only be due to a an area of peristalsis. There is mild thickening of the distal esophagus nonspecific. There is colonic diverticulosis. No evidence of diverticulitis. The the exam does not include the entire pelvis. There are degenerative changes of the lumbar spine. IMPRESSION: 1. No acute finding. 2. Left-sided nephrolithiasis. 3. Postsurgical changes of the stomach as described above. Focal mucosal thickening versus peristalsis in the antrum of the stomach. Upper endoscopy if feasible or upper GI may provide further evaluation. 4. Colonic diverticulosis without diverticulitis. Dictated by: Sacha Lopez MD 03/06/2021 12:48 Sacha Lopez MD in [place] 03/06/2021 12:48
== END ==
PROVIDERS: PCP Nurse Practitioner Family; Visit Provider Nurse Practitioner Family
DX: R10.10 Upper abdominal pain, unspecified (principal); R63.0 Anorexia; Z98.84 Bariatric surgery status
CPT/HCPCS: 74160; Q9967

== ENCOUNTER → 2021-03-25 09:09 | Outpatient (CLI) | payer MEDICARE, OTHER, SELFPAY ==
[2021-03-25 10:47] LABS: Alanine Aminotransferase 16 U/L (12-78); Albumin Level 4.1 g/dl (3.5-5.0); Alkaline Phosphatase 98 U/L (38-126); Aspartate Amino Transferase 19 U/L (14-36); Bilirubin,Direct 0.4 mg/dl (0.0-0.4); Bilirubin,Indirect 0.4 mg/dL (0.0-0.9); Bilirubin,Total 0.8 mg/dl (0.2-1.3); Bilirubin,Unconjugated 0.4 mg/dL (0.0-1.1); Chol/HDL Ratio 2.8 (1-3.5); Cholesterol 177 mg/dl (140-200); HDL Cholesterol 64 mg/dl (40-60); Total Protein,Serum 6.7 g/dl (6.3-8.2); Triglycerides 138 mg/dl (30-150); VLDL Cholesterol 28 mg/dL (0-40)
[2021-03-25 10:58] LABS: Direct LDL Cholesterol 93.32 mg/dL (100-129)
== END ==
PROVIDERS: Visit Provider Nurse Practitioner Family
DX: E78.5 Hyperlipidemia, unspecified (principal); I25.10 Atherosclerotic heart disease of native coronary artery without angina pectoris; I65.29 Occlusion and stenosis of unspecified carotid artery; R42 Dizziness and giddiness; Z95.5 Presence of coronary angioplasty implant and graft
CPT/HCPCS: 36415; 80061; 80076

== ENCOUNTER 2021-04-19 19:04 | Emergency (ER) | payer MEDICARE, OTHER, SELFPAY ==
[2021-04-19 19:15] VITALS: BP 133/93; PULSE 79; RESP 16; TEMP 36.9; O2SAT 96; BMI 41.0
--- NOTE | 2021-04-19 19:18 | XR_ITS ---
PROCEDURE INFORMATION: Exam: XR Left Hip Exam date and time: 04/19/2021 7:18 PM Age: 65 years old Clinical indication: Injury or trauma; Blunt trauma (contusions or hematomas); Patient HX: Fall onto left side with left sided rib and hip pain TECHNIQUE: Imaging protocol: XR Left hip. Views: 2 or 3 views hip with pelvis when performed. COMPARISON: ABDPELW CT abdomen pelvis w con 02/20/2018 7:55 PM FINDINGS: Bones/joints: Mild degenerative changes are seen.. No acute fracture. Soft tissues: Unremarkable. IMPRESSION: No acute findings.
--- NOTE | 2021-04-19 19:18 | XR_ITS ---
PROCEDURE INFORMATION: Exam: XR Left Ribs Exam date and time: 04/19/2021 7:18 PM Age: 65 years old Clinical indication: Injury or trauma; Rib area, left side; Blunt trauma; Patient HX: Fall onto left side with left sided rib and hip pain TECHNIQUE: Imaging protocol: XR Left ribs. Views: 2 views. COMPARISON: CR XR CHEST 2V 12/09/2020 3:50 PM FINDINGS: Bones/joints: Spinal scoliosis and spondylosis. No evidence of a displaced rib fracture. Intraperitoneal space: Left upper quadrant of the abdomen operative changes. Soft tissues: Normal. IMPRESSION: No acute displaced rib fractures demonstrated.
--- NOTE | 2021-04-19 19:19 | XR_ITS ---
PROCEDURE INFORMATION: Exam: XR Thoracic Spine Exam date and time: 04/19/2021 7:19 PM Age: 65 years old Clinical indication: Injury or trauma; Blunt trauma (contusions or hematomas); Patient HX: Fall onto left side with left sided rib and hip pain TECHNIQUE: Imaging protocol: XR of the thoracic spine. Views: 3 views. COMPARISON: No relevant prior studies available. FINDINGS: Bones/joints: Scoliosis of the spine with multilevel degenerative changes are seen. There is no evidence of acute fracture malalignment or discrete bony destruction. Soft tissues: Unremarkable. IMPRESSION: There is no evidence of acute fracture malalignment or discrete bony destruction.
--- NOTE | 2021-04-19 20:15 | HMH.EDUTC ---
[facility] [place] Clinical Impression: Neck pain, Lumbar back pain, Left hip pain Thoracic back pain Qualifiers: Chronicity: acute Back pain laterality: left Qualified Code(s): M54.6 - Pain in thoracic spine Contusion of rib on left side Qualifiers: Encounter type: initial encounter Qualified Code(s): S20.212A - Contusion of left front wall of thorax, initial encounter Left shoulder pain Qualifiers: Chronicity: acute Qualified Code(s): M25.512 - Pain in left shoulder Disposition: Home, Self-Care Condition on Discharge: Good Instructions: DI for Rib Contusion, DI for Torticollis, Cyclobenzaprine Additional Instructions: Drink plenty of fluids. Take tylenol for pain. Take the medications as directed. Follow up with your regular doctor. GO TO THE ER FOR ANY WORSENING SYMPTOMS The muscle relaxer (cyclobenzaprine-flexeril) will make you drowsy, so don't drive or operate heavy machinery after taking it. And, be very careful getting up after taking this medication. It could make you fall again. Follow up with orthopedics if you continue to have musculoskelatal pain. I put in a referral to Dr. Mcmahan, but you would need to call his office and schedule an appointment. Prescriptions: Cyclobenzaprine HCl [Cyclobenzaprine 10mg Tab] 10 mg PO BIDP PRN #20 tab PRN Reason: Muscle Spasm Transmission Status: Received by [id number] Referrals: Roxann Olivera APRN [Primary Care Provider] - Narinder Mcmahan MD [Staff Physician] - Time of Disposition: 20:22 Medical Decision Making - Medical Records Medical records reviewed: No: I reviewed the patient's medical records. - Levy Inquiry Pt receiving controlled substance: No Vital Signs: 04/19/21 19:15 04/19/21 20:30 Temperature 98.4 F 98.4 F Temperature Source Oral Pulse Rate 79 Pulse Rate [Right] 79 Respiratory Rate 16 14 Blood Pressure 133/93 H Blood Pressure [Right Arm] 133/93 H Blood Pressure Mean [Right Arm] 106 02 Sat by Pulse Oximetry 96 - Radiology Data #1 Image(s): T-Spine Image Reviewed: Yes I reviewed the patient's radiology image, Yes I have reviewed radiologist's interpretation Preliminary Findings: Normal/NAD PROCEDURE INFORMATION: Exam: XR Thoracic Spine Exam date and time: 04/19/2021 7:19 PM Age: 65 years old Clinical indication: Injury or trauma; Blunt trauma (contusions or hematomas); Patient HX: Fall onto left side with left sided rib and hip pain TECHNIQUE: Imaging protocol: XR of the thoracic spine. Views: 3 views. COMPARISON: No relevant prior studies available. FINDINGS: Bones/joints: Scoliosis of the spine with multilevel degenerative changes are seen. There is no evidence of acute fracture malalignment or discrete bony destruction. Soft tissues: Unremarkable. IMPRESSION: There is no evidence of acute fracture malalignment or discrete bony destruction. #2 Image(s): Chest Image Reviewed: Yes I reviewed the patient's radiology image, Yes I have reviewed radiologist's interpretation Preliminary Findings: No Fracture Seen PROCEDURE INFORMATION: Exam: XR Left Ribs Exam date and time: 04/19/2021 7:18 PM Age: 65 years old Clinical indication: Injury or trauma; Rib area, left side; Blunt trauma; Patient HX: Fall onto left side with left sided rib and hip pain TECHNIQUE: Imaging protocol: XR Left ribs. Views: 2 views. COMPARISON: CR XR CHEST 2V 12/09/2020 3:50 PM FINDINGS: Bones/joints: Spinal scoliosis and spondylosis. No evidence of a displaced rib fracture. Intraperitoneal space: Left upper quadrant of the abdomen operative changes. Soft tissues: Normal. IMPRESSION: No acute displaced rib fractures demonstrated. #3 Image(s): Hip Image Reviewed: Yes I reviewed the patien
[2021-04-19 20:30] VITALS: BP 133/93; PULSE 79; RESP 14; TEMP 36.9
== END 2021-04-19 20:32 | disposition home or self-care (01) ==
PROVIDERS: Emergency Provider Nurse Practitioner Family; PCP Nurse Practitioner Family
DX: S20.212A Contusion of left front wall of thorax, initial encounter (principal); M25.512 Pain in left shoulder; M25.552 Pain in left hip; W18.09XA Striking against other object with subsequent fall, initial encounter; Y92.019 Unspecified place in single-family (private) house as the place of occurrence of the external cause; I25.10 Atherosclerotic heart disease of native coronary artery without angina pectoris; K21.9 Gastro-esophageal reflux disease without esophagitis; E78.5 Hyperlipidemia, unspecified; Z79.899 Other long term (current) drug therapy
CPT/HCPCS: G0463; 71100; 72072; 73502; 99202

== ENCOUNTER → 2021-08-07 10:52 | Outpatient (CLI) | payer MEDICARE, OTHER, SELFPAY ==
--- NOTE | 2021-08-07 10:59 | XR_ITS ---
PROCEDURE: XR CHEST 2V CLINICAL HISTORY: COUGH COMPARISON: CR XR CHEST 2V from 10/28/2020 CR XR CHEST 2V from 12/09/2020 FINDINGS: There is mild cardiomegaly without failure. The lungs are clear without infiltrates, suspicious nodules, or pleural effusions. Degenerative changes thoracic spine. IMPRESSION: No acute findings. Dictated by: Sacha Lopez MD 08/07/2021 12:17 Sacha Lopez MD in [place] 08/07/2021 12:17
== END ==
PROVIDERS: PCP Nurse Practitioner Family; Visit Provider Nurse Practitioner Family
DX: R05 Cough (principal)
CPT/HCPCS: 71046

== ENCOUNTER → 2021-08-14 09:43 | Outpatient (CLI) | payer MEDICARE, OTHER, SELFPAY ==
[2021-08-14 10:05] VITALS: PULSE 68; PULSE 71
== END ==
PROVIDERS: PCP Nurse Practitioner Family; Visit Provider Nurse Practitioner Family
DX: R05.9 Cough, unspecified (principal)
CPT/HCPCS: 94060; 94640

== ENCOUNTER 2021-08-29 15:46 | Emergency (ER) | payer MEDICARE, OTHER, SELFPAY ==
[2021-08-29 15:50] VITALS: BP 141/88; PULSE 80; RESP 19; TEMP 37; O2SAT 97; BMI 40.0
--- NOTE | 2021-08-29 16:11 | HMH.EDUTC ---
[facility] – [place] Disposition Clinical Impression: COVID-19 virus test result unknown Disposition: Home, Self-Care Condition on Discharge: Good Instructions: COVID-19: Testing and Tracing Additional Instructions: covid swab was sent to lab, call later today for results. self isolate until test results are known to be negative No sign of a bacterial infection. Likely viral. Viruses can take 7-14 days to run their course. Nasal saline and bulb syringe or nose Tracey to remove nasal drainage to help with nasal congestion. Hard to eat, drink, sleep with nasal congestion so important to keep this cleaned out. Monitor temp. Tylenol or Motrin as needed for pain or fever Encourage fluids, water, Gatorade, Powerade, Pedialyte if /toddler/child Warm salt water gargles Warm fluids Sore throat lozenges Sleep elevated Humidifier/vaporizer Follow-up immediately for new or worsening symptoms or no noticeable improvement over the next 48-72 hours. Referrals: Roxann Olivera APRN [Primary Care Provider] - Time of Disposition: 16:13 Medical Decision Making - Levy Inquiry Pt receiving controlled substance: No Vital Signs: 08/29/21 15:50 Temperature 98.6 F Temperature Source Oral Pulse Rate [Right Brachial] 80 Respiratory Rate 19 Blood Pressure [Right Arm] 141/88 H Blood Pressure Mean [Right Arm] 105 Blood Pressure Source [Right Arm] Automatic Cuff Blood Pressure Position [Right Arm] Sitting 02 Sat by Pulse Oximetry 97 Oxygen Delivery Method Room Air Orders (Tests/Meds): ORDERS Category Date Time Status Covid-19 Nasal PCR ([facility]) Routine Lab 08/29/21 16:00 Received [facility] [place] HPI - General Chief complaint: Urgent Treatment Center Stated complaint: covid test, cough Time Seen by Provider: 08/29/21 16:11 Mode of Arrival: Ambulatory Source of Information: Patient Limitations: No Limitations Description of Symptoms (Recalled from Triage Doc. by RN): PATIENT C/O COUGH X 4 DAYS HEENT Symptoms (Recalled from RN notes): No Resp Symptoms (Recalled from RN notes): Yes Skin Symptoms (Recalled from RN notes): No MS Symptoms (Recalled from RN notes): No Functional Status (Recalled from RN notes): WNL - History of Present Illness Provider Complaint: 66 yr old female presents for cough for 4 days and request covid test. pt denies any other symptoms - Related Data Home Medications Medication Instructions Recorded Confirmed Tramadol HCl [Ultram 50mg 50 mg PO NEEDED PRN 02/21/18 08/25/21 tablet] meclizine 25 mg tablet 25 mg PO TID PRN 03/10/20 08/25/21 metformin 500 mg tablet 500 mg PO BID 08/25/21 08/25/21 Previous Rx's Medication Instructions Recorded atorvastatin 40 mg tablet 80 mg PO DAILY #60 tab 10/06/20 aspirin 81 mg chewable tablet 81 mg PO DAILY #100 tab 11/25/20 fexofenadine 180 mg tablet 180 mg PO DAILY #90 tab 02/02/21 clopidogrel 75 mg tablet See Rx Instructions .ROUTE 04/14/21 .COMPLEX #90 tab Cyclobenzaprine HCl 10 mg PO BIDP PRN #20 tab 04/19/21 [Cyclobenzaprine 10mg Tab] ramipril 5 mg capsule 5 mg PO DAILY #90 cap 04/20/21 pantoprazole 40 mg tablet,delayed 40 mg PO DAILY #30 tab 05/21/21 release furosemide 20 mg tablet 20 mg PO DAILY #30 tab 08/25/21 Allergies Allergy/AdvReac Type Severity Reaction Status Date / Time codeine [CODEINE] Allergy Mild NA-NAUSEA/V Verified 08/25/21 13:09 OMITING hydrocodone [HYDROCODONE] Allergy Mild NA-NAUSEA/V Verified 08/25/21 13:09 OMITING - Worker's Comp Is this a Worker's Comp case?: No [facility] History - Hepatitis A Screen Drug use history?: No High risk sexual behaviors?: No History of sexually transmitted infection?: No Currently employed?: No Childcare worker?: No Do you have indoor plumbing?: Yes Do you have electricity?: Yes Attestation statement:: This patient has been screened for Hepatitis A risk factors. I have reviewed the patient's past medical history: Yes Medical History: Reports:: Coronary Artery Disease
[2021-08-29 16:14] VITALS: BP 141/88; PULSE 80; RESP 19; TEMP 37; O2SAT 97
== END 2021-08-29 16:17 | disposition home or self-care (01) ==
PROVIDERS: Emergency Provider Nurse Practitioner Family; PCP Nurse Practitioner Family
DX: Z20.822 Contact with and (suspected) exposure to COVID-19 (principal); R05.1 Acute cough; E11.9 Type 2 diabetes mellitus without complications; I25.10 Atherosclerotic heart disease of native coronary artery without angina pectoris; K21.9 Gastro-esophageal reflux disease without esophagitis; E78.5 Hyperlipidemia, unspecified
CPT/HCPCS: G0463; 99202; C9803; U0003; U0005

== ENCOUNTER → 2021-09-01 13:31 | Outpatient (CLI) | payer MEDICARE, OTHER, SELFPAY ==
--- NOTE | 2021-09-01 13:32 | CA_ITS ---
APPROVED REPORT EXAM: Comprehensive 2D, Doppler, and color-flow Echocardiogram Oil Developer: Vi Alvarez CRT Ht: 5 ft 0 in Wt: 210lbs BSA: 1.91 BP: 141/88 mmHg Indications: abn ekg, gerd, dm, papl, sob 2D Dimensions IVSd 1.09 cm LVEF (Visual) 81.80 % PWd 0.96 cm LA Volume 31.40 mL LVDd 4.71 cm LA Volume Index 16.40 mL/m2 (M/F) 16-34 LVDs 2.33 cm LVOT 1.88 cm (M/F) 1.5-2.5 M-Mode Dimensions RVDd 2.95 cm (0.9-2.6) LA Diam 2.80 cm (1.9-4.0) LVDd 4.12 cm (3.5-5.7) Ao Diam 3.16 cm (2.0-3.7) LVDs 3.08 cm (3.5-5.7) IVSd 1.04 cm (0.6-1.1) PWd 0.87 cm (0.6-1.1) EF (Teich) 50.30% EPSs 0.75 cm FS 25.20% EDV (Teich) 75.10 mL TAPSE 1.79 (<1.7) ESV (Teich) 37.30 mL LV Diastology E Decel Time 230.00 (160-240 msec) E/A Ratio 0.93 MED E' 6.50 (< 7 cm/sec) MED A' 11.10 cm/s E'/MED E' Ratio 15.05 (>14) LAT E' 9.20 (<10 cm/sec) LAT A' 12.20 cm/s E/LAT E' Ratio 10.63 (>14) Aortic Valve AI PHT 538.00 ms AO Peak GR. 5.10 mmHg Mitral Valve MV A Velocity 106.00 (40-130 cm/s) E/A Ratio 0.93 MV Decel. Time 230.00 (160-240 ms) Pulmonary Valve PV Peak Velocity 72.00 (50-150 cm/s) Left Ventricle Left atrium is mildly enlarged, left ventricle is normal size, mild concentric left ventricular hypertrophy, visually estimated ejection fraction 55% with no regional wall motion abnormality, grade 1 diastolic dysfunction seen without tissue Doppler evidence of raise left atrial pressure. Right Ventricle Right atrium and right ventricle are normal size and contractility. Aortic Valve Aortic valve is minimally thickened and fibrosed, there is no aortic stenosis, there is mild aortic insufficiency. Mitral Valve Mitral valve grossly normal, there is trace mitral regurgitation. Tricuspid Valve Tricuspid valve grossly normal, there is trace tricuspid regurgitation, tricuspid regurgitation jet velocity is inadequate for calculation of the right ventricular systolic pressure. Pulmonic Valve Pulmonic valve is poorly visualized. Great Vessels Aortic root is normal size. Inferior vena cava is not well visualized Pericardium No significant pericardial effusion noted. Conclusion 1. Mildly enlarged left atrium, normal left ventricular size, mild concentric left ventricular hypertrophy, visually estimated ejection fraction 55% with no regional wall motion abnormality, grade 1 diastolic dysfunction seen without tissue Doppler evidence of raise left atrial pressure. 2. Mild aortic, trace mitral and tricuspid regurgitation. 3. No significant pericardial effusion noted. Electronically signed by : Marcello Gonzalez MD 09/01/2021 21:04:02
== END ==
PROVIDERS: PCP Nurse Practitioner Family; Visit Provider Urology
DX: I51.7 Cardiomegaly (principal)
CPT/HCPCS: 93306

== ENCOUNTER → 2021-09-21 14:37 | Outpatient (CLI) | payer MEDICARE, OTHER, SELFPAY ==
[2021-09-21 17:03] LABS: Anion Gap 11.7 mEq/L (5-15); Blood Urea Nitrogen 9 mg/dl (7-17); Calcium 9.4 mg/dl (8.4-10.2); Carbon Dioxide 30 mmol/L (22.0-30.0); Chloride 100 mmol/L (98-107); Estimated Glomerular Filt Rate 100 ml/min (>60); GFR (African American) 121 ML/MIN (>60); Glucose 197 mg/dl (74-100); Potassium 4.7 mmoL/L (3.5-5.1); Sodium 137 mmol/L (136-145)
== END ==
PROVIDERS: Visit Provider Urology
DX: E78.2 Mixed hyperlipidemia (principal); I25.10 Atherosclerotic heart disease of native coronary artery without angina pectoris; I65.23 Occlusion and stenosis of bilateral carotid arteries; Z95.5 Presence of coronary angioplasty implant and graft
CPT/HCPCS: 36415; 80048

== ENCOUNTER 2021-10-08 18:04 | Emergency (ER) | payer MEDICARE, OTHER, SELFPAY ==
[2021-10-08 18:05] VITALS: BP 157/80; PULSE 77; RESP 16; TEMP 36.6; O2SAT 98; BMI 40.0
--- NOTE | 2021-10-08 18:34 | CT_ITS ---
PROCEDURE INFORMATION: Exam: CT Abdomen And Pelvis With Contrast Exam date and time: 10/08/2021 6:34 PM Age: 66 years old Clinical indication: Other: Lt flank pain; Prior surgery; Surgery date: 6+ months; Patient HX: Renal stone vs gastric bypass issue; L side pain TECHNIQUE: Imaging protocol: Computed tomography of the abdomen and pelvis with contrast. Total images: 330 Radiation optimization: All CT scans at this facility use at least one of these dose optimization techniques: automated exposure control; mA and/or kV adjustment per patient size (includes targeted exams where dose is matched to clinical indication); or iterative reconstruction. Contrast material: ISOVUE; Contrast volume: 75 ml; Contrast route: IV; COMPARISON: CT ABDOMEN W CON 03/06/2021 11:09 AM FINDINGS: Lungs: Patchy scarring or atelectasis in the lung bases. Heart: Heart size normal. Moderate coronary artery calcification versus stent in the distal RCA distribution. Mediastinal space: Minor wall thickening in the distal esophagus again noted, possibly mild esophagitis. Suspect small hiatal hernia. Liver: Moderate fatty infiltration of the liver. Normal contour. No mass lesions. No intrahepatic biliary ductal dilatation. Gallbladder and bile ducts: Prior cholecystectomy with expected mild postoperative dilatation of the common bile duct. This is unchanged. Pancreas: Mild pancreatic atrophy without acute abnormality. No pancreatic ductal dilatation. Spleen: Granulomatous calcifications in the spleen without acute splenic abnormality. Adrenal glands: Normal. No adrenal mass. Kidneys and ureters: 9 x 5 x 4 mm left proximal ureteral stone at the L4 level with moderate left hydronephrosis and mild left perinephric/periureteral stranding. Additional nonobstructive left renal stones measuring 3 mm and 10 mm. Mild left renal cortical scarring. The right kidney and right collecting system are unremarkable. Stomach and bowel: Postoperative changes in the stomach again noted without gross operative complication or interval change. The small bowel is nondilated with no gross abnormality. Chronic submucosal fatty transformation in the proximal colon suggesting underlying chronic changes of prior colitis. Mild distal colonic diverticulosis. Questionable stranding in the sigmoid mesentery along the proximal sigmoid colon which may indicate mild diverticulitis or changes of prior diverticulitis. No evidence of perforation or abscess. Appendix: The appendix is not identified. No secondary signs of appendicitis. Intraperitoneal space: No free fluid or air. Vasculature: Moderate atherosclerotic aortoiliac calcification without aneurysm. Lymph nodes: No adenopathy. Urinary bladder: The urinary bladder is largely contracted without gross abnormality. Reproductive: Unremarkable as visualized. Bones/joints: No acute osseous abnormalities. Moderate lumbar degenerative changes. Mild leftward convexity lumbar scoliosis. Soft tissues: Unremarkable. IMPRESSION: 1. There is a 9 x 5 x 4 mm proximal left ureteral stone with moderate left hydronephrosis. 2. Additional nonobstructive left renal stones. 3. Postsurgical changes in the stomach without gross complication or change from prior exam. 4. Mild esophageal wall thickening could indicate esophagitis, correlate with nonemergent esophagram or endoscopic assessment as clinically indicated. 5. Mild distal colonic diverticulosis with minor stranding in the sigmoid mesentery near the proximal sigmoid colon which could indicate mild diverticulitis or chronic changes of prior diverticulitis. Submucosal fatty transformation in the proxima
[2021-10-08 18:55] LABS: Basophils # 0.1 K/mm3 (0-0.2); Basophils % 1.2 % (0.1-2.0); Eosinophils # 0.5 K/mm3 (0.0-0.4); Eosinophils % 4.7 % (0.1-12.0); Hematocrit 40.4 % (37.0-47.0); Hemoglobin 13.8 g/dL (12.2-16.2); Lymphocytes # 2.5 K/mm3 (0.7-4.5); Lymphocytes % 25.7 % (10-50); Mean Corpuscular HGB Conc 34.1 g/dL (31.8-35.4); Mean Corpuscular Hemoglobin 30.5 pg (27.0-31.2); Mean Corpuscular Volume 89.5 fl (81-99); Mean Platelet Volume 8.3 fl (7.4-10.4); Monocytes # 0.4 K/mm3 (0.1-1.0); Monocytes % 4.1 % (1.7-9.3); Neutrophils # 6.3 K/mm3 (1.8-7.8); Neutrophils % 64.3 % (37.0-80.0); Platelet Count 296 K/mm3 (142-424); Red Blood Count 4.51 M/mm3 (4.20-5.40); Red Cell Distribution Width 13.5 % (11.5-17.5); White Blood Count 9.8 K/mm3 (4.8-10.8)
[2021-10-08 19:00] LABS: Chloride 104 mmol/L (98-107); Potassium 4.3 mmoL/L (3.5-5.1); Sodium 140 mmol/L (136-145)
[2021-10-08 19:03] LABS: Anion Gap 13.3 mEq/L (5-15); Blood Urea Nitrogen 12 mg/dl (7-17); Carbon Dioxide 27 mmol/L (22.0-30.0); Creatinine Clearance Estimated 80 mL/min (50-200); Estimated Glomerular Filt Rate 83 ml/min (>60); GFR (African American) 101 ML/MIN (>60)
[2021-10-08 19:04] LABS: Calcium 9.5 mg/dl (8.4-10.2); Glucose 222 mg/dl (74-100)
--- NOTE | 2021-10-08 19:06 | HMH.EDGENADL ---
ED Disposition Clinical Impression: Left nephrolithiasis, Hydroureter on left Disposition: Home, Self-Care Condition on Discharge: Good Instructions: Kidney Stones -- Adult, DI for Kidney Stones Prescriptions: Oxycodone HCl [Oxycodone 5mg tab (IR)] 5 mg PO Q4HP PRN #12 tab PRN Reason: Severe Pain Prescription Printed ondansetron HCL [Zofran 4mg Tab*] 4 mg PO Q6H PRN #12 tab PRN Reason: Nausea Transmission Status: Pending to [id number] Referrals: Roxann Olivera APRN [Primary Care Provider] - Time of Disposition: 20:03 - Critical Care Critical Care Time: No Attestation: On 10/08/21, the high probability of a clinically significant, sudden or life threatening deterioration of the following system(s) required my full and direct attention, intervention and personal management. The time I documented below is in addition to time spent performing reported procedures but includes the following listed in this critical care notation. Medical Decision Making - Medical Records Medical records reviewed: Yes: I reviewed the patient's medical records. - Levy Inquiry Pt receiving controlled substance: Yes Levy was queried for this patient: Yes Risks and benefits of using a controlled substance: were discussed with pt by me Vital Signs: 10/08/21 18:05 Temperature 97.9 F Temperature Source Oral Pulse Rate [Left Radial] 77 Respiratory Rate 16 Blood Pressure [Right Arm] 157/80 H Blood Pressure Mean [Right Arm] 105 Blood Pressure Source [Right Arm] Automatic Cuff Blood Pressure Position [Right Arm] Sitting 02 Sat by Pulse Oximetry 98 Oxygen Delivery Method Room Air - Lab Data Lab Results 10/08/21 18:50: WBC 9.8, RBC 4.51, Hgb 13.8, Hct 40.4, MCV 89.5, MCH 30.5, MCHC 34.1, RDW 13.5, Plt Count 296, MPV 8.3, Neut % (Auto) 64.3, Lymph % (Auto) 25.7, Putnam % (Auto) 4.1, Eos % (Auto) 4.7, Baso % (Auto) 1.2, Neut # (Auto) 6.3, Lymph # (Auto) 2.5, Putnam # (Auto) 0.4, Eos # (Auto) 0.5 H, Baso # (Auto) 0.1 11/25/21 18:50: Sodium 140, Potassium 4.3, Chloride 104, Carbon Dioxide 27, Anion Gap 13.3, BUN 12, Creatinine 0.70, Estimated Creat Clear 80, Estimated GFR 83, Est GFR ( Amer) 101, Glucose 222 H, Calcium 9.5 Result diagrams: 10/08/21 18:50 10/08/21 18:50 Orders (Tests/Meds): ED MEDICATIONS Generic Name Dose Route Start Last Admin Trade Name Freq PRN Reason Stop Dose Admin Lactated Ringer's 1,000 mls @ 999 mls/hr 10/08/21 18:45 10/08/21 18:56 Lactated Ringer's 1000 Ml Bag IV 10/08/21 19:45 999 mls/hr .Q1H1M CAT Administration Discontinued Medications Generic Name Dose Route Start Last Admin Trade Name Freq PRN Reason Stop Dose Admin Iopamidol 75 ml 10/08/21 19:32 10/08/21 19:33 Iopamidol-370 (76%);100ml Bottle IV 10/08/21 19:33 75 ml ONCE ONE Administration Ketorolac Tromethamine 30 mg 10/08/21 18:34 10/08/21 18:56 Ketorolac 30mg/Ml Vial IV 10/08/21 18:35 30 mg ONCE ONE Administration Ondansetron HCl 4 mg 10/08/21 18:34 10/08/21 18:56 Ondansetron 4mg/2ml Vial IV 10/08/21 18:35 4 mg ONCE ONE Administration Sodium Chloride 10 ml 10/08/21 19:32 10/08/21 19:33 Sodium Chloride 0.9% 10ml Vial IV 10/08/21 19:33 10 ml ONCE ONE Administration ORDERS Category Date Time Status CT abdomen pelvis w con Stat Cat Scan 10/08/21 18:34 Taken Urinalysis and Microscopic Stat Lab 10/08/21 18:34 Ordered Medical Decision Narrative: 66-year-old female who presents to the emergency department with chief complaint of left flank pain. Patient arrives very uncomfortable, writhing around the bed, nauseated and vomits in the emergency department. Her pain has been ongoing since this morning and is mainly left upper quadrant/left flank and radiates towards the middle. Given patient's history of gastric bypass surgery and age, exam is obviously concerning for a kidney stone, but could also be marginal ulcer perforation from gastric bypass surg
[2021-10-08 20:08] LABS: Microscopic, Urine URINE MICROSCOPIC (MICROSCOPIC)
[2021-10-08 20:09] LABS: Appearance,Urine CLOUDY (Clear); Blood, Urine 3+ (Negative); Color,Urine DK YELLOW (Yellow); Glucose,Urine (UA) TRACE (Negative); Ketones,Urine Negative (Negative); Leukocyte Esterase,Urine Negative (Negative); Nitrate,Urine Negative (Negative); PH,Urine 5.5 (5.0-8.5); Protein,Urine 1+ (Negative)
[2021-10-08 20:18] LABS: Bilirubin,Urine Negative (Negative); RBC,Urine TNTC #/hpf (0-3); Squamous Epithelial Cell,Urine Occasional #/hpf (0-5); WBC,Urine Occasional #/hpf (0-3)
[2021-10-08 20:19] LABS: Bacteria,Urine 4+ /lpf
[2021-10-08 20:23] VITALS: BP 138/76; PULSE 77; RESP 16; TEMP 36.5
== END 2021-10-08 20:33 | disposition home or self-care (01) ==
PROVIDERS: Emergency Provider Emergency Medicine; PCP Nurse Practitioner Family
DX: N20.0 Calculus of kidney (principal); N13.4 Hydroureter; I25.10 Atherosclerotic heart disease of native coronary artery without angina pectoris; E78.5 Hyperlipidemia, unspecified
CPT/HCPCS: 74177; 80048; 81001; 85025; 87086; 96365; 96376; 99283; J2405; Q9967

== ENCOUNTER → 2021-10-15 11:50 | Outpatient (CLI) | payer MEDICARE, OTHER, SELFPAY | PROVIDERS: Visit Provider Urology | DX: N20.0 Calculus of kidney (principal); Z01.812 Encounter for preprocedural laboratory examination; Z20.822 Contact with and (suspected) exposure to COVID-19 | CPT/HCPCS: C9803; U0003; U0005 ==

== ENCOUNTER 2021-10-16 09:38 | Day surgery (SDC) | payer MEDICARE, OTHER, SELFPAY ==
[2021-10-15 13:43] VITALS: BMI 39.8
[2021-10-16] VITALS (11 sets, daily range): BP systolic 127–160; BP diastolic 64–90; PULSE 60–76; RESP 15–20; TEMP 36.3–43; O2SAT 93–98
--- NOTE | 2021-10-16 10:29 | XR_ITS ---
PROCEDURE: XR KUB CLINICAL INDICATION: preop Left kidney stone COMPARISON: CT CT ABDOMEN PELVIS W CON from 10/08/2021 FINDINGS: 7 mm stone noted overlying the mid aspect of the left kidney. Stone sutures and clips noted in the left upper quadrant medially. Faint calcific density is present in the mid aspect of the pelvis on the left at 2 mm and could represent a phleboliths or a ureteral calculus. Degenerative changes of the SI joint and lumbar spine and hips. IMPRESSION: Left nephrolithiasis. 2 mm calcific density in the left pelvic region possibly representing a phleboliths or a ureteral calculus. Dictated by: Sacha Lopez MD 10/16/2021 10:51 Sacha oLpez MD in [place] 10/16/2021 10:51
--- NOTE | 2021-10-16 11:59 | P.PN_ITS ---
[facility] Anesthesia Checklist - Patient Identification Patient Identification: Arm Band - Structural Data Admitted From: Home Planned Operative Procedure/s: Cystoscopy with stent placement Consent for Planned Operative Procedure(s) Verified: Yes - NPO Status Verified Time NPO: 00:00 - Additional verifications Anesthesia Reactions: No Hx Blood Transfusions: No Blood Transfusion Reaction: No - Airway Assessment C-Spine Mobility Assessed: Yes TMJ Mobility Assessed: Yes Dentition: Edentulous - Neurological Assessment Level of Consciousness: Awake Hx Seizures: No Numbness or tingling in extremities: No - Anesthesia Plan Anesthesia Risk discussed: Yes Anesthesia Plan: Verified ASA Class: III Anesthesia Type: General [facility] History I have reviewed the patient's past medical history: Yes Medical History: Reports:: Coronary Artery Disease, Diabetes Mellitus Type 2, Gastroesophageal Reflux Disease(GERD), Hyperlipidemia, Kidney Stones Denies:: Cancer, Diabetes Mellitus Type 1, Internal Pacemaker, MRSA, Seizures *Have you ever received a pneumonia vaccine?: Yes *Have you received a flu vaccine this season?: Yes Other Medical History: Reports: Arthritis. Denies: Blood Transfusion Reaction Anesthesia experience/problems:: None Laterality Cases: Left: Arthroscopy Knee, Carpal Tunnel Release, Bilateral: Cataract Other Surgeries: Yes: No Previous Surgery, Appendectomy, Cardiac Catheterization, Cholecystectomy, Colonoscopy, Coronary Stent, Other. No: Pacemaker Amputation: No Fractures: No - *Social History Last grade of school completed: High school graduate Smoking Status: Never smoker Alcohol Intake: never Alcohol Intake Frequency:: other Substance Use Type: denies use *Occupational Status:: retired Housing: house Household Members: family *Travel in the last 8 weeks: None Family Hx:: Asthma, Coronary Artery Disease, Diabetes, Hyperlipidemia, Hypertension, Stroke
--- NOTE | 2021-10-16 12:22 | HMH.ANESI ---
[facility] Anesthesia Record Part I Intake, IV Amount: 1,000 Estimated blood loss (mL): 0 Urine output (mL): 0 Blood Pressure: 152/81 SaO2: 93 Pulse Rate: 74 Respiratory Rate: 15 Temperature: 98.1 F Patient is:: Drowsy Stable to PACU at:: 12:30
--- NOTE | 2021-10-16 12:35 | SUR.PHASEI ---
fsbg 126
[2021-10-16 12:41] LABS: POC Glucose,Bedside 126 (70-110)
--- NOTE | 2021-10-16 13:08 | XR_ITS ---
PROCEDURE: XR KUB CLINICAL INDICATION: URETEROSCOPY WITH STENT PLACEMENT COMPARISON: No exams were available for comparison FINDINGS: Status post left ureteral stent placement with C-arm assistance. Two images submitted show proximal aspect of the stent overlying the left upper quadrant of the distal aspect overlying the left pelvic region. Fluoroscopy time: 50 seconds. IMPRESSION: Status post left ureteral stent placement with fluoroscopic assistance Dictated by: Sacha Lopez MD 10/16/2021 14:00 Sacha Lopez MD in [place] 10/16/2021 14:00
--- NOTE | 2021-10-16 13:37 | HMH.OPNOTE ---
Date of procedure: 10/16/21 Pre-op Diagnosis:: 9 mm mid ureteral stone, left Post-op Diagnosis:: Same Procedure performed:: Left ureteroscopy with dilation of ureter, laser lithotripsy, stone extraction and left stent placement Surgeon:: Jose Louis MD CUSTOMER ACCOUNT TECHNICIAN:: Nain Muñoz Anesthesia: LMA Estimated blood loss (mL): 0 Clinical Note:: 66-year-old white female with history of nephrolithiasis now with left renal colic. CT scan shows a 9 mm mid ureteral calculus. Operative findings:: 9 mm stone noted in the mid ureter. Laser was used to break the stone up and all stone fragments removed. Operative note:: Patient taken to the operating room after informed consent was obtained. She was placed on the operating table in the supine position and general anesthesia administered. Preoperative antibiotics and sequential compression devices placed. She was then placed into the dorsal lithotomy position and prepped draped in a standard surgical fashion. The 22 Vincentian cystoscope passed into the urethra and into the bladder. The bladder was examined in a systematic fashion and was within normal limits. The ureteral orifices in their normal anatomic position. A guidewire passed into the left ureteral orifice and up to the level of a stone in the upper portion of the left mid ureter. We were able to manipulate the wire by the stone and the cystoscope removed. We then dilated the left distal ureter with the UroMax balloon dilator to 12 estefania for 2 minutes. The balloon then deflated and removed. Our semirigid ureteroscope then passed into the bladder and into the left ureter and up to the level of the stone. Stone was fragmented with a 220 nm laser fiber into small fragments and a 1.9 Vincentian stone basket was then used to remove all the stone fragments. A 4.8 x 24 Vincentian stent was then passed and a good curl was noted proximally and distally after the wire was removed. The bladder drained the scope removed Urojet placed into the urethra. String was left on for later removal. Patient tolerated procedure well. Condition: stable Disposition: PACU Specimens:: Stone fragments were not sent Complications:: None
--- NOTE | 2021-10-19 11:11 | HMH.ANESII ---
[facility] Anesthesia Record Part II Discharge Time: 13:00 Destination: Surgical Day Care (OP Surgery) PACU nurse assessment reviewed?: Yes Patient Condition:: Good Anesthesia Complications:: None Swallowing reflex intact?: Yes Cyanosis?: No Blood Pressure: 130/75 Pulse Rate: 60 Temperature: 98.1 F Mental Status: Alert & Oriented Pain level:: 0 Nausea and/or vomitting:: None Intake, IV Amount: 0
[2021-10-19 11:12] VITALS: BP 130/75; PULSE 60; TEMP 36.7
[2022-08-12 10:55] LABS: POC Glucose,Bedside 155 (70-110)
== END 2021-10-16 13:40 | disposition home or self-care (01) ==
LOC: OR 09:39
PROVIDERS: PCP Nurse Practitioner Family; Visit Provider Urology
DX: N20.1 Calculus of ureter (principal); I25.10 Atherosclerotic heart disease of native coronary artery without angina pectoris; E11.9 Type 2 diabetes mellitus without complications; K21.9 Gastro-esophageal reflux disease without esophagitis; E78.5 Hyperlipidemia, unspecified; M19.90 Unspecified osteoarthritis, unspecified site; Z90.49 Acquired absence of other specified parts of digestive tract; Z88.6 Allergy status to analgesic agent; Z79.82 Long term (current) use of aspirin; Z79.899 Other long term (current) drug therapy; Z79.84 Long term (current) use of oral hypoglycemic drugs; Z82.3 Family history of stroke
CPT/HCPCS: 50590; 74018; 82962; 96374; C2617; J2405

== ENCOUNTER 2022-06-13 15:40 | Emergency (ER) | payer MEDICARE, OTHER, SELFPAY ==
[2022-06-13 16:10] VITALS: BP 136/79; PULSE 78; RESP 15; TEMP 36.9; O2SAT 97; BMI 39.0
--- NOTE | 2022-06-13 16:14 | HMH.EDUTC ---
[facility] Disposition Clinical Impression: Bronchitis Sinusitis Qualifiers: Sinusitis location: unspecified location Chronicity: acute Recurrence: non-recurrent Qualified Code(s): J01.90 - Acute sinusitis, unspecified Disposition: Home, Self-Care Condition on Discharge: Good Instructions: DI for Sinusitis, DI for COVID-19 (Suspected or Confirmed ), Preventing the Spread of Coronavirus Discharge Instructions Additional Instructions: Drink plenty of fluids. Take tylenol or ibuprofen for pain or fever. Take the medications as directed. Follow up with your regular doctor. GO TO THE ER FOR ANY WORSENING SYMPTOMS Quarantine until you know the results of your covid-19 test. Notify your school or workplace of your results and follow their instructions regarding return to work/school. Prescriptions: Benzonatate [Benzonatate 100mg cap] 100 mg PO TIDP PRN #30 cap PRN Reason: Cough Transmission Status[facility] methylPREDNISolone [Medrol] 4 mg PO DIRECTED 6 Days #21 packet Transmission Status: Received by [facility] Nirmatrelvir/Ritonavir [Paxlovid 2X150 mg-100 mg (Eua)] 1 packet PO DIRECTED 5 Days #1 packet Transmission Status: Received by [facility] Azithromycin [Z-Meet 250mg Tab*] 250 mg PO UD DOSE PK #6 tab Transmission Status: Received by [facility] Referrals: Roxann Olivera APRN [Primary Care Provider] - Time of Disposition: 16:35 Medical Decision Making - Medical Records Medical records reviewed: No: I reviewed the patient's medical records. - Levy Inquiry Pt receiving controlled substance: No Vital Signs: 06/13/22 16:10 06/13/22 16:45 Temperature 98.4 F 98.4 F Temperature Source Oral Pulse Rate 78 Pulse Rate [Left] 78 Respiratory Rate 15 15 Blood Pressure 136/79 Blood Pressure [Right Arm] 136/79 Blood Pressure Mean [Right Arm] 98 02 Sat by Pulse Oximetry 97 [facility] HPI - General Stated complaint: covid test Time Seen by Provider: 06/13/22 16:14 Mode of Arrival: Ambulatory Source of Information: Patient Limitations: No Limitations Description of Symptoms (Recalled from Triage Doc. by RN): patient comes in for covid test. patient was exposed by many members of her family that she went on vacation with. when they got home, they tested positive. symptoms include cough, runny nose, fatique, and headache. symptoms began last tuesday HEENT Symptoms (Recalled from RN notes): Yes Resp Symptoms (Recalled from RN notes): Yes Skin Symptoms (Recalled from RN notes): No MS Symptoms (Recalled from RN notes): No Functional Status (Recalled from RN notes): n/a - History of Present Illness Provider Complaint: She has had sinus congestion, sore throat, chills and body aches for the past 2 days. She has been exposed to covid-19 about 5 days ago. She denies any shortness of breath. - Related Data Home Medications Medication Instructions Recorded Confirmed Tramadol HCl [Ultram 50mg 50 mg PO NEEDED PRN 02/21/18 10/22/21 tablet] metformin 500 mg tablet 500 mg PO BID 08/25/21 10/22/21 cetirizine 10 mg tablet 10 mg PO DAILY tab 09/22/21 10/22/21 Clopidogrel Bisulfate [Plavix] 75 mg PO DAILY 10/15/21 10/22/21 Furosemide [Furosemide 20mg Tab*] 20 mg PO DAILY 10/15/21 10/22/21 Previous Rx's Medication Instructions Recorded atorvastatin 40 mg tablet 80 mg PO DAILY #60 tab 10/06/20 aspirin 81 mg chewable tablet 81 mg PO DAILY #100 tab 11/25/20 Cyclobenzaprine HCl 10 mg PO BIDP PRN #20 tab 04/19/21 [Cyclobenzaprine 10mg Tab] ramipril 5 mg capsule 5 mg PO DAILY #90 cap 04/20/21 Oxycodone HCl [Oxycodone 5mg tab 5 mg PO Q4HP PRN #12 tab 10/08/21 (IR)] ondansetron HCL [Zofran 4mg Tab*] 4 mg PO Q6H PRN #12 tab 10/08/21 pantoprazole 40 mg tablet,delayed See Rx Instructions .ROUTE 02/01/22 release .COMPLEX #90 tablet Azithromycin [Z-Meet 250mg Tab*] 250 mg PO UD DOSE PK #6 tab 06/13/22 Benzonatate [Benzonatate 100
[2022-06-13 16:45] VITALS: BP 136/79; PULSE 78; RESP 15; TEMP 36.9
== END 2022-06-13 16:45 | disposition home or self-care (01) ==
PROVIDERS: Emergency Provider Nurse Practitioner Family; PCP Nurse Practitioner Family
DX: J40 Bronchitis, not specified as acute or chronic (principal); J01.90 Acute sinusitis, unspecified
CPT/HCPCS: 99212; C9803; G0463; U0003; U0005

== ENCOUNTER → 2022-08-31 12:40 | Outpatient (CLI) | payer MEDICARE, OTHER, SELFPAY ==
--- NOTE | 2022-08-31 12:55 | US_ITS ---
FINAL REPORT CLINICAL HISTORY: CLAUDICATION,RT LEG REST PAIN,DM,HTN,HLD,CAD FINDINGS: COMPLETE ANKLE/BRACHIAL INDICES BILATERAL Ankle brachial indices were obtained. The right TAQUERIA is 1.2. The left TAQUERIA is 1.1. IMPRESSION: The ABIs are within normal limits bilaterally. Reviewed, Interpreted and Dictated by Dinh Serrano III, MD Transcribed by Yulia Adkins Authenticated and [facility]
--- NOTE | 2022-08-31 13:29 | MR_ITS ---
FINAL REPORT TECHNIQUE: Multi planar MR imaging of the right femur was obtained. CLINICAL HISTORY: RIGHT THIGH PAIN. ANTERIOR THIGH PAIN THAT RADIATES DOWN LEG TO ANKLE. SYMPTOMS 3 WEEKS. NO INJURY OR TRAUMA. FINDINGS: There is no fracture or bone marrow edema. Mild degenerative changes are seen of the right hip and moderate degenerative changes are seen in the knee. There is a high-grade tear of the gluteus minimus tendon at its insertion. A mild tear is seen in the gluteus medius tendon at the insertion on the greater trochanter with adjacent soft tissue edema. Musculature is intact. IMPRESSION: High-grade tear of the gluteus minimus tendon at its insertion and mild tear of the gluteus minimus tendon with adjacent soft tissue edema. Reviewed, Interpreted and Dictated by Dinh Serrano III, MD Transcribed by Kristine Maurer Authenticated and [facility]
== END ==
PROVIDERS: PCP Nurse Practitioner Family; Visit Provider Nurse Practitioner Family
DX: M79.651 Pain in right thigh (principal); M79.604 Pain in right leg; M79.605 Pain in left leg; Z82.49 Family history of ischemic heart disease and other diseases of the circulatory system; I70.213 Atherosclerosis of native arteries of extremities with intermittent claudication, bilateral legs
CPT/HCPCS: 73718; 93923

== ENCOUNTER → 2022-09-27 15:49 | Outpatient (CLI) | payer MEDICARE, OTHER, SELFPAY ==
[2022-09-27 16:14] LABS: Basophils # 0.1 K/mm3 (0-0.2); Basophils % 1.2 % (0.1-2.0); Eosinophils # 0.3 K/mm3 (0.0-0.4); Eosinophils % 2.9 % (0.1-12.0); Hematocrit 46.3 % (37.0-47.0); Hemoglobin 14.6 g/dL (12.2-16.2); Lymphocytes # 2.3 K/mm3 (0.7-4.5); Lymphocytes % 24.2 % (10-50); Mean Corpuscular HGB Conc 31.6 g/dL (31.8-35.4); Mean Platelet Volume 8.3 fl (7.4-10.4); Monocytes # 0.4 K/mm3 (0.1-1.0); Monocytes % 4.3 % (1.7-9.3); Neutrophils # 6.4 K/mm3 (1.8-7.8); Neutrophils % 67.5 % (37.0-80.0); Platelet Count 303 K/mm3 (142-424); Red Blood Count 5.03 M/mm3 (4.20-5.40); Red Cell Distribution Width 13.3 % (11.5-17.5); White Blood Count 9.5 K/mm3 (4.8-10.8)
[2022-09-27 17:23] LABS: Alanine Aminotransferase 24 U/L (12-78); Albumin Level 4.5 g/dl (3.5-5.0); Albumin/Globulin Ratio 1.7 (1.1-1.8); Alkaline Phosphatase 114 U/L (38-126); Amylase 53 U/L (30-110); Aspartate Amino Transferase 27 U/L (14-36); Bilirubin,Total 0.8 mg/dl (0.2-1.3); Blood Urea Nitrogen 15 mg/dl (7-17); Calcium 9.7 mg/dl (8.4-10.2); Carbon Dioxide 28 mmol/L (22.0-30.0); Chloride 99 mmol/L (98-107); Estimated Glomerular Filt Rate 71 ml/min (>60); GFR (African American) 86 ML/MIN (>60); Globulin 2.7 g/dL (1.3-3.2); Glucose 133 mg/dl (74-100); Lipase 96 U/L (23-300); Sodium 141 mmol/L (136-145); Total Protein,Serum 7.2 g/dl (6.3-8.2)
== END ==
PROVIDERS: PCP Nurse Practitioner Family; Visit Provider Nurse Practitioner Family
DX: R10.10 Upper abdominal pain, unspecified (principal)
CPT/HCPCS: 36415; 80053; 82150; 83690; 85025

== ENCOUNTER 2022-10-27 09:00 | Outpatient (RCR) | payer MEDICARE, OTHER, MEDICAID, SELFPAY | END 2022-10-27 09:05 | disposition home or self-care (01) | LOC: PT 09:00 | PROVIDERS: PCP Nurse Practitioner Family; Visit Provider Nurse Practitioner Family | DX: M79.604 Pain in right leg (principal); T14.8XXA Other injury of unspecified body region, initial encounter | CPT/HCPCS: 97010; 97014; 97033; 97035; 97110; 97163; 97164; G0283 ==

== ENCOUNTER 2023-01-22 17:06 | Emergency (ER) | payer MEDICARE, MEDICAID, SELFPAY ==
[2023-01-22 17:30] VITALS: BP 131/61; PULSE 89; RESP 20; TEMP 37.1; O2SAT 98; BMI 37.5
--- NOTE | 2023-01-22 18:02 | EXP.UTC ---
Discharge Plan Disposition Patient Disposition: Home, Self-Care Condition: Good Prescriptions Prescriptions: New ciprofloxacin HCl [Cipro] 500 mg tablet 500 mg PO Q12H Qty: 20 0RF metronidazole 500 mg tablet 500 mg PO Q8H Qty: 30 0RF No Action aspirin 81 mg tablet,chewable 81 mg PO DAILY Qty: 100 5RF cetirizine 10 mg tablet 10 mg PO DAILY celecoxib [Celebrex] 200 mg capsule 200 mg PO DAILY Qty: 30 1RF atorvastatin 40 mg tablet 80 mg PO DAILY Qty: 60 5RF clopidogrel 75 mg tablet 75 mg PO DAILY Qty: 90 3RF Rx Instructions: Take 1 tablet by mouth once daily furosemide 20 mg tablet 20 mg PO DAILY PRN (Reason: Fluid) Qty: 20 1RF ramipril 5 mg capsule 5 mg PO DAILY Qty: 90 3RF Ozempic 0.25 mg or 0.5 mg(2 mg/1.5 mL) pen injector 0.5 mg SQ WEEKLY Qty: 1.5 6RF pantoprazole 40 mg tablet,delayed release (DR/EC) See Rx Instructions .ROUTE .COMPLEX Qty: 90 2RF Dose Instruction: Take 1 tablet by mouth once daily Rx Instructions: Take 1 tablet by mouth once daily tramadol 50 MG tablet 50 mg PO NEEDED PRN (Reason: PAIN) cyclobenzaprine 10 MG tablet 10 mg PO BIDP PRN (Reason: Muscle Spasm) Qty: 20 0RF ondansetron HCl 4 MG tablet 4 mg PO Q6H PRN (Reason: Nausea) Qty: 12 0RF oxycodone 5 MG tablet 5 mg PO Q4HP PRN (Reason: Severe Pain) Qty: 12 0RF Referrals Follow up/Referrals: Roxann Olivera APRN [Primary Care Provider] - See instructions Activity Restrictions/Add. Instructions Additional Instructions/Restrictions: Do not take Zofran/Odansetron while taking antibiotic. Do not drink any alcohol. If symptoms do not improve or worsen return to ER. Liquid diet for the next 2 days. Clinical Impressions Clinical Impression: Diverticulosis Instructions Patient Instructions: DI for Diverticulitis Discharge ED Provider: Jennifer Reeves [facility] HPI General Stated complaint: AHN Diarrhea,nausa Mode of Arrival: Ambulatory Source of Information: Patient Limitations: No Limitations Time Seen by Provider: 01/22/23 18:02 Description of Symptoms (Recalled from Triage Doc. by RN): PATIENT C/O LOWER ABDOMINAL PAIN, CRAMPING, DIARRHEA AND NAUSEA SINCE TUESDAY. REPORTS A HISTORY OF DIVERTICULITIS HEENT Symptoms (Recalled from RN notes): No Resp Symptoms (Recalled from RN notes): No Skin Symptoms (Recalled from RN notes): No MS Symptoms (Recalled from RN notes): No Functional Status (Recalled from RN notes): WNL History of Present Illness Provider Complaint: Pt relates that she has a history of diverticulitis and has not had a flare for a year. She didn't have to to the the hospital last time and was successfully treated with po antibiotics. She states that her pain is not as bad as usual with this issue but she is still miserable. She states she has a lot of pain when she eats and will immediately have diarrhea. She has had this since Tuesday. Related Data Home Medications Medication Instructions Recorded Confirmed tramadol 50 mg tablet 50 mg PO NEEDED PRN PAIN 02/21/18 10/19/22 cetirizine 10 mg tablet 10 mg PO DAILY allergies 09/22/21 10/19/22 Previous Rx's Medication Instructions Recorded aspirin 81 mg chewable tablet 81 mg PO DAILY Heart disease #100 11/25/20 tabs cyclobenzaprine 10 mg tablet 10 mg PO BIDP PRN Muscle Spasm #20 04/19/21 tabs ondansetron HCl 4 mg tablet 4 mg PO Q6H PRN Nausea #12 tabs 10/08/21 oxycodone 5 mg tablet 5 mg PO Q4HP PRN Severe Pain #12 10/08/21 tabs celecoxib 200 mg capsule (Celebrex) 200 mg PO DAILY #30 caps 10/13/22 atorvastatin 40 mg tablet 80 mg PO DAILY Cholesterol #60 tabs 10/19/22 clopidogrel 75 mg tablet 75 mg PO DAILY Blood thinner #90 10/19/22 tabs furosemide 20 mg tablet 20 mg PO DAILY PRN Fluid #20 tabs 10/19/22 pantoprazole 40 mg tablet,delayed See Rx Instructions .Route 10/19/22 release .COMPLEX #90 tabs ramipril 5 mg capsule 5 mg PO DAILY High blood pressure
[2023-01-22 18:27] VITALS: BP 131/61; PULSE 89; RESP 20; TEMP 37.1; O2SAT 98
== END 2023-01-22 18:32 | disposition home or self-care (01) ==
PROVIDERS: Emergency Provider Nurse Practitioner Family; PCP Nurse Practitioner Family
DX: R10.30 Lower abdominal pain, unspecified (principal); K57.90 Diverticulosis of intestine, part unspecified, without perforation or abscess without bleeding; R19.7 Diarrhea, unspecified; R11.0 Nausea
CPT/HCPCS: 99212; 99214; G0463

== ENCOUNTER → 2023-01-28 08:17 | Outpatient (CLI) | payer MEDICARE, MEDICAID, SELFPAY ==
--- NOTE | 2023-01-28 08:22 | MM_ITS ---
PROCEDURE INFORMATION: Exam: Bilateral Screening 3D Mammography Exam date and time: 01/28/2023 8:23 AM Age: 67 years old Clinical indication: Screening examination TECHNIQUE: Imaging protocol: Bilateral Screening tomosynthesis and 2D mammography including computer-aided detection (CAD) when performed. COMPARISON: 1. DMSB DIG MAMM-SCREEN MAYELA 10/16/2013 3:42 PM 2. MG DIGMAMMDX MAMMOGRAM DX-RETAIL PROJECT MERCHANDISER N/C 08/19/2004 3:59 PM FINDINGS: MAMMOGRAPHY: Breast composition: There are scattered areas of fibroglandular density. Mass: None. Architectural distortion: None. Calcifications: No suspicious calcifications. Asymmetric density: None. Skin thickening: None. Axillary adenopathy: None. IMPRESSION: No mammographic evidence of malignancy. Annual screening is recommended unless otherwise clinically indicated. ASSESSMENT: BI-RADS Category 1: Negative
== END ==
PROVIDERS: PCP Nurse Practitioner Family; Visit Provider Nurse Practitioner Family
DX: Z12.31 Encounter for screening mammogram for malignant neoplasm of breast (principal)
CPT/HCPCS: 77063; 77067

== ENCOUNTER → 2023-02-04 09:02 | Outpatient (CLI) | payer MEDICARE, MEDICAID, SELFPAY ==
--- NOTE | 2023-02-04 09:07 | XR_ITS ---
FINAL REPORT TECHNIQUE: Bone densitometry calculations of the lumbar spine and hips were obtained. CLINICAL HISTORY: . screening (osteoporosis) FINDINGS: DEXA BONE DENSITY AXIAL SKELETON Using L1-4, the bone mineral density of the spine is 1.210 g/cm2, corresponding to T-score of 1.5. Using the left hip, the bone mineral density of the femoral neck is 0.676 g/cm2, corresponding to a T-score of -1.6. Using the right hip, the bone mineral density of the femoral neck is 0.663 g/cm2, corresponding to a T-score of -1.7. NOTE: T-score: Standard deviation compared with peak bone mass of young adult mean. *Following the recommendations of the International Society of Bone densitometry, classification of hip BMD is based on the lower of two T-scores; total hip or femoral neck. IMPRESSION: Normal bone mineral density of the lumbar spine. Diminished bone mineral density of the hips consistent with osteopenia. FRAX 10 year fracture risk is 1.2% for a hip fracture and 9% for a major osteoporotic fracture based on right hip. Reviewed, Interpreted and Dictated by Alek Falk MD Transcribed by Karuna Figueroa Authenticated and [facility]
== END ==
PROVIDERS: PCP Nurse Practitioner Family; Visit Provider Nurse Practitioner Family
DX: Z78.0 Asymptomatic menopausal state (principal); Z13.820 Encounter for screening for osteoporosis
CPT/HCPCS: 77080

== ENCOUNTER → 2023-04-13 11:36 | Outpatient (CLI) | payer MEDICARE, MEDICAID, SELFPAY ==
[2023-04-13 12:40] LABS: Alanine Aminotransferase 19 U/L (12-78); Alkaline Phosphatase 87 U/L (38-126); Aspartate Amino Transferase 23 U/L (14-36); Bilirubin,Indirect 0.8 mg/dL (0.0-0.9); Bilirubin,Total 0.8 mg/dl (0.2-1.3); Bilirubin,Unconjugated 0.8 mg/dL (0.0-1.1); Chol/HDL Ratio 3.3 (1-3.5); Cholesterol 209 mg/dl (140-200); HDL Cholesterol 63 mg/dl (40-60); Total Protein,Serum 6.5 g/dl (6.3-8.2); Triglycerides 141 mg/dl (30-150); VLDL Cholesterol 28 mg/dL (0-40)
[2023-04-13 12:51] LABS: Direct LDL Cholesterol 108.83 mg/dL (100-129)
== END ==
PROVIDERS: PCP Nurse Practitioner Family; Visit Provider Nurse Practitioner
DX: E78.2 Mixed hyperlipidemia (principal)
CPT/HCPCS: 36415; 80061; 80076

== ENCOUNTER → 2023-08-05 16:43 | Outpatient (CLI) | payer MEDICARE, MEDICAID, SELFPAY ==
[2023-08-05 12:29] LABS: Microscopic, Urine URINE MICROSCOPIC (MICROSCOPIC)
[2023-08-05 12:42] LABS: Appearance,Urine CLEAR (Clear); Blood, Urine Negative (Negative); Color,Urine YELLOW (Yellow); Glucose,Urine (UA) Negative (Negative); Ketones,Urine Negative (Negative); Leukocyte Esterase,Urine Negative (Negative); Nitrate,Urine Negative (Negative); PH,Urine 5.5 (5.0-8.5); Protein,Urine Negative (Negative); Specific Gravity, Urine >= 1.030 (1.005-1.030)
[2023-08-05 12:45] LABS: Bilirubin,Urine 1+ (Negative)
[2023-08-05 12:51] LABS: Basophils # 0.1 K/mm3 (0-0.2); Basophils % 0.3 % (0.1-2.0); Eosinophils % 0.2 % (0.1-12.0); Hemoglobin 14.4 g/dL (12.2-16.2); Lymphocytes # 1.8 K/mm3 (0.7-4.5); Lymphocytes % 12.6 % (10-50); Mean Corpuscular Hemoglobin 28.8 pg (27.0-31.2); Mean Corpuscular Volume 90.1 fl (81-99); Mean Platelet Volume 8.6 fl (7.4-10.4); Monocytes # 0.8 K/mm3 (0.1-1.0); Monocytes % 5.9 % (1.7-9.3); Neutrophils # 11.5 K/mm3 (1.8-7.8); Neutrophils % 80.9 % (37.0-80.0); Platelet Count 264 K/mm3 (142-424); Red Blood Count 4.99 M/mm3 (4.20-5.40); Red Cell Distribution Width 13.6 % (11.5-17.5); White Blood Count 14.2 K/mm3 (4.8-10.8)
[2023-08-05 13:00] LABS: Bacteria,Urine Trace /lpf; WBC,Urine Occasional #/hpf (0-3)
[2023-08-05 13:12] LABS: Alanine Aminotransferase 17 U/L (12-78); Albumin Level 4.1 g/dl (3.5-5.0); Albumin/Globulin Ratio 1.5 (1.1-1.8); Alkaline Phosphatase 92 U/L (38-126); Amylase 54 U/L (30-110); Anion Gap 12.7 mEq/L (5-15); Aspartate Amino Transferase 21 U/L (14-36); Bilirubin,Total 1.7 mg/dl (0.2-1.3); Blood Urea Nitrogen 20 mg/dl (7-17); Calcium 9.2 mg/dl (8.4-10.2); Carbon Dioxide 29 mmol/L (22.0-30.0); Chloride 103 mmol/L (98-107); Cholesterol 187 mg/dl (140-200); Estimated Glomerular Filt Rate 83 ml/min (>60); GFR (African American) 100 ML/MIN (>60); Globulin 2.8 g/dL (1.3-3.2); Glucose 131 mg/dl (74-100); HDL Cholesterol 63 mg/dl (40-60); Lipase 54 U/L (23-300); Potassium 4.7 mmoL/L (3.5-5.1); Sodium 140 mmol/L (136-145); Total Protein,Serum 6.9 g/dl (6.3-8.2); Triglycerides 95 mg/dl (30-150); VLDL Cholesterol 19 mg/dL (0-40)
[2023-08-05 13:23] LABS: Direct LDL Cholesterol 98.41 mg/dL (100-129)
== END ==
PROVIDERS: PCP Nurse Practitioner Family; Visit Provider Nurse Practitioner Family
DX: K57.90 Diverticulosis of intestine, part unspecified, without perforation or abscess without bleeding (principal); R10.30 Lower abdominal pain, unspecified; R19.7 Diarrhea, unspecified; R11.2 Nausea with vomiting, unspecified; E11.69 Type 2 diabetes mellitus with other specified complication; E78.5 Hyperlipidemia, unspecified; E78.2 Mixed hyperlipidemia; R10.2 Pelvic and perineal pain
CPT/HCPCS: 80053; 80061; 81001; 82150; 83036; 83690; 85025; 87086

== ENCOUNTER → 2023-08-08 01:10 | Outpatient (CLI) | payer MEDICARE, MEDICAID, SELFPAY | PROVIDERS: PCP Nurse Practitioner Family; Visit Provider Nurse Practitioner Family | DX: R82.998 Other abnormal findings in urine (principal) | CPT/HCPCS: 87086 ==

== ENCOUNTER → 2023-08-17 09:34 | Outpatient (CLI) | payer MEDICARE, MEDICAID, SELFPAY ==
[2023-08-17 10:47] LABS: Blood Urea Nitrogen 11 mg/dl (7-17); Estimated Glomerular Filt Rate 99 ml/min (>60); GFR (African American) 120 ML/MIN (>60)
== END ==
PROVIDERS: PCP Nurse Practitioner Family; Visit Provider Nurse Practitioner Family
DX: R10.30 Lower abdominal pain, unspecified (principal)
CPT/HCPCS: 36415; 82565; 84520

== ENCOUNTER → 2023-08-19 08:57 | Outpatient (CLI) | payer MEDICARE, MEDICAID, SELFPAY | PROVIDERS: PCP Nurse Practitioner Family; Visit Provider Nurse Practitioner Family | DX: R19.7 Diarrhea, unspecified (principal) | CPT/HCPCS: 87045; 87205 ==

== ENCOUNTER → 2023-08-23 10:03 | Outpatient (CLI) | payer MEDICARE, MEDICAID, SELFPAY ==
--- NOTE | 2023-08-23 10:03 | CT_ITS ---
FINAL REPORT CLINICAL HISTORY: lower abd pain, leukocytosis COMPARISON: 10/08/2021 FINDINGS: CT OF THE ABDOMEN AND PELVIS WITH CONTRAST Axial CT images of the abdomen and pelvis were obtained after the administration of oral and iv contrast. Coronal reformatted images were also obtained and reviewed.This study was performed with techniques to keep radiation doses as low as reasonably achievable (ALARA). Individualized dose reduction techniques using automated exposure control or adjustment of mA and/or kV according to the patient's size were employed. Abdomen: The lung bases are clear. The heart is normal in size. There is a small cyst in the right liver dome measuring less than 1 cm. There is no biliary ductal dilatation. The patient is status post gastric bypass. The patient is status postcholecystectomy. The spleen is unremarkable. No adrenal mass is present. The pancreas has an unremarkable appearance. There are several nonobstructing left renal stones measuring up to 5 mm. There is scarring in the upper pole of the left kidney. No hydronephrosis is identified. The aorta is normal in caliber. There is no free fluid or adenopathy. No mass or abnormal fluid collection is seen. Pelvis: The appendix is not well-visualized. The urinary bladder is unremarkable. No inflammatory process is seen. There is no evidence of mass or adenopathy. There is no evidence of bowel obstruction. There is descending and sigmoid diverticulosis with no evidence of diverticulitis. IMPRESSION: Less than 1 cm cyst in the right liver dome. Several nonobstructing left renal stones. Descending and sigmoid diverticulosis. Reviewed, Interpreted and Dictated by Dinh Serrano III, MD Transcribed by Anai Fish Authenticated and [facility]
== END ==
PROVIDERS: PCP Nurse Practitioner Family; Visit Provider Nurse Practitioner Family
DX: D72.829 Elevated white blood cell count, unspecified (principal); R10.30 Lower abdominal pain, unspecified
CPT/HCPCS: 74177; Q9967

== ENCOUNTER 2023-12-17 19:05 | Emergency (ER) | payer MEDICARE, MEDICAID, SELFPAY ==
[2023-12-17 19:15] VITALS: BP 121/84; PULSE 76; RESP 19; TEMP 36.7; O2SAT 98; BMI 31.8
--- NOTE | 2023-12-17 19:20 | XR_ITS ---
PROCEDURE INFORMATION: Exam: XR Left Shoulder Exam date and time: 12/17/2023 7:20 PM Age: 68 years old Clinical indication: Injury or trauma; Fall; Blunt trauma (contusions or hematomas); Shoulder; Left TECHNIQUE: Imaging protocol: Radiologic exam of the left shoulder. Views: 2 or more views. COMPARISON: CR XR CHEST 2V 08/07/2021 11:01 AM FINDINGS: Bones/joints: Normal. Soft tissues: Normal. IMPRESSION: No acute findings.
--- NOTE | 2023-12-17 19:20 | XR_ITS ---
PROCEDURE INFORMATION: Exam: XR Left Knee Exam date and time: 12/17/2023 7:27 PM Age: 68 years old Clinical indication: Injury or trauma; Fall; Blunt trauma; Knee; Left TECHNIQUE: Imaging protocol: Radiologic exam of the left knee. Views: 3 views. COMPARISON: US ARTERIAL LOWER EXT REST 08/31/2022 12:58 PM FINDINGS: Bones/joints: Status post total knee arthroplasty. The patient is status post patellar resurfacing. Soft tissues: Normal. IMPRESSION: Postsurgical changes without acute injury or hardware abnormality.
--- NOTE | 2023-12-17 19:20 | XR_ITS ---
PROCEDURE INFORMATION: Exam: XR Left Elbow Exam date and time: 12/17/2023 7:25 PM Age: 68 years old Clinical indication: Injury or trauma; Fall; Blunt trauma (contusions or hematomas); Elbow; Left TECHNIQUE: Imaging protocol: Radiologic exam of the left elbow. Views: 3 or more views. COMPARISON: CT ELBOW LT WO CON 03/10/2020 8:19 AM FINDINGS: Bones/joints: The osseous structures are intact, with no signs of acute fracture, dislocation, or malalignment. Age-related degenerative changes are observed. There is no evidence of abnormal bone density or destructive lesions. Soft tissues: The soft tissues appear within normal limits. IMPRESSION: At the time of imaging, the study shows no acute osseous abnormalities but does reveal signs of age-related degenerative changes.
--- NOTE | 2023-12-17 19:20 | XR_ITS ---
PROCEDURE INFORMATION: Exam: XR Left Humerus Exam date and time: 12/17/2023 7:21 PM Age: 68 years old Clinical indication: Injury or trauma; Fall; Blunt trauma (contusions or hematomas); Arm, upper; Left TECHNIQUE: Imaging protocol: Radiologic exam of the left humerus. Views: 2 or more views. COMPARISON: CR XR SHOULDER LT MIN 2V 12/17/2023 7:20 PM FINDINGS: Bones/joints: Normal. Soft tissues: Normal. IMPRESSION: No acute findings.
--- NOTE | 2023-12-17 19:26 | ED_ITS ---
Discharge Plan Disposition Patient Disposition: Home, Self-Care Condition: Good Prescriptions Prescriptions: No Action aspirin 81 mg tablet,chewable 81 mg PO DAILY Qty: 100 5RF atorvastatin 80 mg tablet 80 mg PO DAILY Qty: 90 1RF Caltrate-D3 Plus Minerals 300 mg-20 mcg- 25 mg-0.5 mg tablet 2 tab PO DAILY furosemide 20 mg tablet 20 mg PO DAILY PRN (Reason: Fluid) ondansetron HCl 4 mg tablet 4 mg PO Q8H PRN (Reason: nausea and vomiting) Qty: 30 0RF Ozempic 1 mg/dose (4 mg/3 mL) pen injector 1 mg SQ WEEKLY 90 Days Qty: 9.75 1RF metronidazole 500 mg tablet 500 mg PO Q8H 10 Days Qty: 30 0RF Hold Instructions: Home Medication placed on hold at Doctor's office azelastine 0.05 % drops 1 drp Eye-Both ONCE PRN cetirizine 10 mg tablet 10 mg PO DAILY PRN (Reason: allergies) clopidogrel 75 mg tablet 75 mg PO DAILY Qty: 90 3RF Rx Instructions: Take 1 tablet by mouth once daily ramipril 5 mg capsule 5 mg PO DAILY Qty: 90 3RF pantoprazole 40 mg tablet,delayed release (DR/EC) See Rx Instructions .ROUTE .COMPLEX Qty: 90 2RF Dose Instruction: Take 1 tablet by mouth once daily Rx Instructions: Take 1 tablet by mouth once daily celecoxib 200 mg capsule 200 mg PO DAILY PRN (DME) Contour Next Test Strips Strip See Rx Instructions .ROUTE Qty: 100 0RF Rx Instructions: As directed (DME) blood-glucose meter [Accu-Chek Guide Glucose Meter] Misc See Rx Instructions .Route Qty: 1 0RF Rx Instructions: As directed (DME) Accu-Chek Guide test strips Strip See Rx Instructions .Route Qty: 100 1RF Rx Instructions: As directed daily (DME) lancets [Accu-Chek Softclix Lancets] Misc See Rx Instructions .Route Qty: 100 1RF Rx Instructions: As directed daily tramadol 50 MG tablet 50 mg PO NEEDED PRN (Reason: PAIN) cyclobenzaprine 10 MG tablet 10 mg PO BIDP PRN (Reason: Muscle Spasm) Qty: 20 0RF Referrals Follow up/Referrals: Roxann Olivera APRN [Primary Care Provider] - See instructions Activity Restrictions/Add. Instructions Additional Instructions/Restrictions: Weight bearing as tolerated rest Ice with cold pack for 20 minutes remove may repeat for comfort every hours. sling for support and swelling. Elevate Ibuprofen every 6 hours as needed for pain or inflammation. If needs something more you can take Tylenol every 4 hours as needed as long as her primary care has told he was okayed for you to take both. Follow-up immediately if new or worsening symptoms or no noticeable improvement over the next 3-5 days. call ortho if no improvement Clinical Impressions Clinical Impression: Left shoulder pain Qualifiers: Chronicity: acute Qualified Code(s): M25.512 - Pain in left shoulder Abrasion of knee, left Qualifiers: Encounter type: initial encounter Qualified Code(s): S80.212A - Abrasion, left knee, initial encounter Instructions Patient Instructions: DI for Abrasion, DI for Shoulder Pain Discharge ED Provider: Juli ([facility])[place] [facility] [place] General Stated complaint: AO 12/17 8:00 left shoulder/elbow/knee pain Mode of Arrival: Ambulatory Source of Information: Patient Limitations: No Limitations Time Seen by Provider: 12/17/23 19:26 Description of Symptoms (Recalled from Triage Doc. by RN): PATIENT STATES SHE FELL THIS MORNING AND C/O LEFT ARM AND LEFT KNEE PAIN HEENT Symptoms (Recalled from RN notes): No Resp Symptoms (Recalled from RN notes): No Skin Symptoms (Recalled from RN notes): No MS Symptoms (Recalled from RN notes): Yes Functional Status (Recalled from RN notes): WNL History of Present Illness Provider Complaint: 68 yr old female presents for left arm, shoulder and knee pain. pt states at 8 am this morning she was walking to the bathroom when her shoe hit the vent and she fell hitting left shoulder arm and landed on knee. Related Data Home Medications Medication Instructions Recorded Confirmed tramadol 50 mg tablet 50 mg PO NEEDED PRN PAIN 02/21/18 11/23/23 calcium carb 300 mg-D3 20 mcg-mag 2 tab PO DAILY 08/05/23 11/23/23 ox 25 mg-helicopter officer 0.5 [id number] tablet (Caltrate-D3 Plus Minerals) furosemide 20 mg tablet 20 mg PO DAILY PRN Fluid 08/05/23 11/23/23 azelastine 0.05 % eye drops 1 drp Eye-Both ONCE PRN 08/08/23 11/23/23 cetirizine 10 mg tablet 10 mg PO DAILY PRN allergies 08/08/23 11/23/23 celecoxib 200 mg capsule 200 mg PO DAILY PRN 11/23/23 Previous Rx's Medication Instructions Recorded aspirin 81 mg chewable tablet 81 mg PO DAILY Heart disease #100 11/25/20 tabs cyclobenzaprine 10 mg tablet 10 mg PO BIDP PRN Muscle Spasm #20 04/19/21 tabs clopidogrel 75 mg tablet 75 mg PO DAILY Blood thinner #90 10/19/22 tabs pantoprazole 40 mg tablet,delayed See Rx Instructions .Route 10/19/22 release .COMPLEX #90 tabs ramipril 5 mg capsule 5 mg PO DAILY High blood pressure 10/19/22 #90 caps atorvastatin 80 mg tablet 80 mg PO DAILY Cholesterol #90 tabs 04/19/23 metronidazole 500 mg tablet 500 mg PO Q8H 10 days #30 tabs 08/05/23 ondansetron HCl 4 mg tablet 4 mg PO Q8H PRN nausea and 08/05/23 vomiting #30 tabs semaglutide 1 mg/dose (4 mg/3 mL) 1 mg (0.75 mL) SQ WEEKLY 90 days 08/05/23 subcutaneous pen injector (Ozempic) #9.75 mL blood sugar diagnostic (Accu-Chek #100 ea 10/26/23 Guide test strips) blood sugar diagnostic (Contour #100 ea 10/26/23 Next Test Strips) blood-glucose meter (Accu-Chek #1 ea 10/26/23 Guide Glucose Meter) lancets (Accu-Chek Softclix #100 ea 10/26/23 Lancets) Allergies Allergy/AdvReac Type Severity Reaction Status Date / Time codeine [CODEINE] Allergy Mild NA-NAUSEA/V Verified 11/23/23 10:40 OMITING hydrocodone [HYDROCODONE] Allergy Mild NA-NAUSEA/V Verified 11/23/23 10:40 OMITING Worker's Comp Is this a Worker's Comp case?: No [facility] Disclaimer: The information contained in this section may have been updated after the patient was seen, as this information can be updated by other users. Medical History (Reviewed 12/17/23 @ 19:28 by Mary Bustos ([facility]), [employer]) Abnormal cardiovascular stress test Abnormal EKG Atypical angina Cataract (lens) fragments in eye following cataract surgery, bilateral Chest pain Dizziness Dyspnea Family history of heart disease Gastroesophageal reflux disease History of left heart catheterization Near syncope Palpitations Surgical History , [employer]) H/O gastric bypass H/O heart artery stent History of carpal tunnel release History of left knee replacement Hx of cholecystectomy Family History (Reviewed 12/17/23 @ 19:28 by Mary Bustos ([facility]), [employer]) Diabetes Sister Vasculitis Father COPD (chronic obstructive pulmonary disease) Mother Social History (Reviewed 12/17/23 @ 19:28 by Mary Bustos ([facility]), [employer]) Smoking Status: Never smoker second hand exposure: No alcohol intake: never substance use type: denies use current occupational status: retired Travel in the last 8 weeks: None household members: family housing: house 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 current occupational exposures/hazards: No caffeine: Yes ROS Obtained: Yes All systems reviewed & no additional complaints except as documented Constitutional Constitutional: Reports system reviewed and no additional complaints, except as documented and Reports as per HPI Eyes Eyes: Reports system reviewed and no additional complaints, except as documented ENT Ears, Nose, Mouth, and Throat: Reports system reviewed and no additional complaints, except as documented Cardiovascular Cardiovascular: Reports system reviewed and no additional complaints, except as documented Respiratory Respiratory: Reports system reviewed and no additional complaints, except as documented Musculoskeletal Musculoskeletal: Reports system reviewed and no additional complaints, except as documented, Reports as per HPI, Reports arthralgias and Reports limited range of motion Comments: shoulder/arm/knee Integumentary/Breasts Skin/Breast: Reports system reviewed and no additional complaints, except as documented Neurologic Neurologic: Reports system reviewed and no additional complaints, except as documented Hematologic/Lymphatic Henatologic/Lymphatic: Reports system reviewed and no additional complaints, except as documented Physical Exam General General appearance: alert and in no apparent distress Head Head exam: atraumatic Eye Eye exam: Present normal appearance and PERRL ENT ENT exam: Present normal exam, normal oropharynx, mucous membranes moist and TM's normal bilaterally Respiratory Respiratory exam: Present normal lung sounds bilaterally Cardiovascular Cardiovascular exam: Present regular rate and normal rhythm Extremities Exam Extremities exam: Present tenderness and normal capillary refill Expanded Upper Extremity Exam Left: Shoulder exam: Present normal inspection and tenderness Arm exam: Present normal inspection and tenderness Elbow exam: Present normal inspection and tenderness Vascular exam: Normal capillary refill Comment: pt unable to lift arm Back Exam Back 1 view image: 1. tender Neurological Exam Neurological exam: Present alert and oriented X3 Skin Skin exam: Present warm and other (abrasion to left knee) Medical Decision Making Medical Records Medical records reviewed: Yes I reviewed the patient's medical records. Levy Inquiry Pt receiving controlled substance: No Levy was queried for this patient: No Vital Signs: 12/17/23 19:15 Temperature 98.1 F Temperature Source Oral Pulse Rate [Right Brachial] 76 Respiratory Rate 19 Blood Pressure [Right Arm] 121/84 Blood Pressure Mean [Right Arm] 96 Blood Pressure Source [Right Arm] Automatic Cuff Blood Pressure Position [Right Arm] Sitting 02 Sat by Pulse Oximetry 98 Oxygen Delivery Method Room Air Lab Data Lab results reviewed: Yes I reviewed the patient's lab results. Orders (Tests/Meds): ORDERS Category Date Time Status XR elbow LT min 3V Stat Exams 12/17/23 19:20 Ordered XR humerus LT Stat Exams 12/17/23 19:20 Ordered XR knee LT 3V Stat Exams 12/17/23 19:20 Ordered XR shoulder LT min 2V Stat Exams 12/17/23 19:20 Ordered
[2023-12-17 19:51] VITALS: BP 121/84; PULSE 76; RESP 19; TEMP 36.7; O2SAT 98
== END 2023-12-17 19:56 | disposition home or self-care (01) ==
PROVIDERS: Emergency Provider Nurse Practitioner Family; PCP Nurse Practitioner Family
DX: M25.562 Pain in left knee (principal); M25.512 Pain in left shoulder; S80.212A Abrasion, left knee, initial encounter; K21.9 Gastro-esophageal reflux disease without esophagitis; W18.30XA Fall on same level, unspecified, initial encounter
CPT/HCPCS: 73030; 73060; 73080; 73562; 99212; 99214; G0463

== ENCOUNTER 2023-12-21 06:51 | Outpatient (CLI) | payer MEDICARE, MEDICAID, SELFPAY ==
--- NOTE | 2023-12-21 | CA_ITS ---
APPROVED REPORT Exam: Pharmacologic Technologist: Torri Damico, Ht: 5 ft 0 in Wt: 178 lbs BSA: 1.78 m2 HR: 66 bpm BP: 145/76 mmHg Rhythm: NSR, CANNOT R/O OLD SEPTAL GA, LOW VOLTAGE QRS Medical History Medical History: HTN, Hyperlipidemia, Diabetes Medications: Aspirin,,,,, Pantoprazole,,,,, Atorvastatin,,,,, Tramadol,,,,, CloPIdogrel,,,,, Celecoxib,,,,, Rampril,,,,, Cyclobenzaprine,,,,, CetIRIZINE,,,,, AZelastine,,,,, Metronidazole,,,,, SeMaglutide,,,,, Allergies: CODEEINE, HYDROCODONE Cardiac Risk Factors: HTN, Hyperlipidemia, , Diabetes, FHX of CAD Stress Test Details Test: LEXISCAN HR Resting HR: 70 bpm Max Heart Rate (APMHR): 151 bpm Max HR Achieved: 102 bpm Target HR (85% APMHR): 128 bpm % of APMHR: 68 Recovery HR: 79 bpm BP Resting BP: 145/76 mmHg Max BP: 147/79 mmHg Recovery BP: 137.0/81.0 mmHg ECG Resting ECG: NSR, CANNOT R/O OLD SEPTAL GA, LOW VOLTAGE QRS Stress ECG: No significant ST changes Arrhythmia: None Clinical Exercise duration: 04:01 min Highest Stage Achieved: Exercise capacity: 1.0 METs Stress ECG Conclusion PT HAD SOA, MILD HEAD DISCMFORT. NO CP NO SIGNIFICANT CHANGES UNREMARKABLE LEXISCAN STRESS MYOVIEW IMAGES REPORTED SEPARATELY Test Summary REST 05:09 . . 70 . 145/ 76 . . Stage 1 01:00 . . 95 . . . . Stage 2 01:00 . . 92 . 147/ 79 . . Stage 3 01:00 . . 85 . 138/ 73 . . Stage 4 01:00 . . 83 . . . . Stage 4 01:01 . . 83 . . . Stop exercise at 04:01 RECOVERY 01:00 . . 88 . 125/ 67 . . RECOVERY 02:00 . . 83 . 140/ 78 . . RECOVERY 03:00 . . 79 . 137/ 81 . . RECOVERY 03:18 . . 79 . 137/ 81 . . Electronically signed by : Adilene Rosa MD 12/24/2023 23:34:00
--- NOTE | 2023-12-21 06:55 | NM_ITS ---
APPROVED REPORT Exam: Nuclear Stress Test Indication: SOB, HTN, DM, High cholesterol, Family history, CAD Patient Location: Outpatient Stress Tech: Torri Damico [place] Tech:Mariella Dsouza, ARRT, RT (R)(N) Ht: 5 ft 0 in Wt: 175 lbs Bra Size: 40D HR: 70 bpm BP: 145/76 mmHg BSA: 1.76 m2 Rhythm: NSR TID: 1.10 History: SOB, HTN, DM, High cholesterol, Family history, CAD Procedure: Patient received 0.4 mg of intravenous Lexiscan, resting heart rate 70 bpm, resting blood pressure 145/76 mmHg, with Lexiscan maximum heart rate achieved was 102 bpm which is % of the maximum predicted heart rate and blood pressure was 147/79 mmHg. With Lexiscan, patient denied any complaint of chest pain. Cardiac Stress and Resting SPECT Images: Cardiac Stress and Resting SPECT images were obtained using technetium 99m Myoview 31.7 mCi stress and 10.61 mCi at rest. Resting and stress imaging in supine and prone positions demonstrate a small sized, moderate, reversible perfusion defect in the mid to distal anterior and anterolateral LV simpson. Gated imaging demonstrates normal global and regional LV systolic function. LVEF is calculated at 72%. Conclusion: Small sized, moderate, reversible perfusion defect in the mid to distal anterior and anterolateral LV simpson. Findings are suggestive of reversible ischemia. Gated imaging demonstrates normal global and regional LV systolic function. LVEF is calculated at 72%. Electronically signed by : Adilene Rosa MD 12/24/2023 23:36:46
[2023-12-21] MEDS: REGADENOSON 0.4MG/5ML SYRINGE 0.400000000000000022 MG IV (08:47)
[2023-12-21] MEDS: ISOTOPE MYOVIEW (PER STUDY) 1 DOSE IV (08:47)
[2023-12-21] MEDS: SODIUM CHLORIDE 0.9% 10ML SYR (RAD ONLY) 10 ML IV ×2 (08:47)
--- NOTE | 2023-12-21 08:47 | CA_ITS ---
APPROVED REPORT EXAM: Comprehensive 2D, Doppler, and color-flow Echocardiogram Water Leak Repairer: Vi Alvarez CRT Ht: 5 ft 0 in Wt: 178lbs BSA: 1.78 BP: 140/73 mmHg Indications: Abnormal ECG, Chest Pain, Shortness of Breath, Diabetes, Palpitations, CAD 2D Dimensions LA Volume 34.30 mL LA Volume Index 18.80 mL/m2 (M/F) 16-34 M-Mode Dimensions RVDd 2.31 cm (0.9-2.6) LA Diam 3.34 cm (1.9-4.0) LVDd 4.21 cm (3.5-5.7) LVDs 2.90 cm (3.5-5.7) IVSd 1.47 cm (0.6-1.1) PWd 0.66 cm (0.6-1.1) EF (Teich) 59.20% FS 31.10% EDV (Teich) 79.00 mL ESV (Teich) 32.20 mL LV Diastology E Decel Time 163 (160-240 msec) E/A Ratio 0.84 MED A' 12.00 cm/s LAT A' 11.60 cm/s Aortic Valve AO Peak GR. 5.20 mmHg Mitral Valve MV E Max Steven. 75.0 (40-130 cm/s) MV A Velocity 89.0 (40-130 cm/s) E/A Ratio 0.84 MV PHT 48.0 ms Pulmonary Valve PV Peak Velocity 134.0 (50-150 cm/s) Tricuspid Valve TR P. Velocity 206.00 cm/s RAP Estimate 10.00 mmHg RVSP 27.00 mmHg Left Ventricle The left ventricle is normal size. The left ventricular systolic function is normal. The left ventricular ejection fraction is within the normal range. There is increased LV wall thickness. There is normal LV segmental wall motion. The left ventricular diastolic function is normal. LVEF is 55%. Right Ventricle The right ventricle is normal size. The right ventricular systolic function is normal. Atria The left atrium size is normal. The right atrium size is normal. There is no Doppler evidence of interatrial shunt. Aortic Valve The aortic valve is mildly thickened. There is no aortic valvular stenosis. Trace aortic regurgitation. Mitral Valve The mitral valve is normal in structure. No evidence of mitral valve stenosis. Trace mitral regurgitation. Tricuspid Valve The tricuspid valve leaflets are thin and pliable. Trace tricuspid regurgitation. There is insufficient TR jet to estimate RVSP. Pulmonic Valve The pulmonary valve is normal in structure. Trace pulmonic regurgitation. Great Vessels The aortic root is normal in size. The ascending aorta is normal in size. IVC is normal in size and collapses >50% with inspiration. Pericardium There is no pericardial effusion. Other Information Study Quality: Fair Conclusion Normal biventricular systolic function. No significant valvular stenosis or regurgitation. Electronically signed by : Adilene Rosa MD 12/25/2023 14:48:00
== END 2023-12-21 23:59 ==
LOC: RAD 06:52
PROVIDERS: PCP Nurse Practitioner Family; Visit Provider Nurse Practitioner
DX: E11.9 Type 2 diabetes mellitus without complications (principal); E78.5 Hyperlipidemia, unspecified; I25.10 Atherosclerotic heart disease of native coronary artery without angina pectoris; R42 Dizziness and giddiness; Z95.5 Presence of coronary angioplasty implant and graft; R06.09 Other forms of dyspnea; I65.23 Occlusion and stenosis of bilateral carotid arteries
CPT/HCPCS: 78452; 93017; 93018; 93306; A9502; J2785

== ENCOUNTER 2024-02-03 16:26 | Outpatient (CLI) | payer MEDICARE, MEDICAID, SELFPAY ==
[2024-02-03 16:58] LABS: Chloride 105 mmol/L (98-107); Sodium 142 mmol/L (136-145)
[2024-02-03 16:59] LABS: Potassium 4.9 mmoL/L (3.5-5.1)
[2024-02-03 17:01] LABS: Alanine Aminotransferase 24 U/L (12-78); Alkaline Phosphatase 85 U/L (38-126); Aspartate Amino Transferase 28 U/L (14-36); Bilirubin,Total 0.8 mg/dl (0.2-1.3); Blood Urea Nitrogen 15 mg/dl (7-17); Cholesterol 165 mg/dl (140-200); Estimated Glomerular Filt Rate 99 ml/min (>60); GFR (African American) 120 ML/MIN (>60); Hemoglobin A1C 5.8 % (4.0-6.0); Triglycerides 110 mg/dl (30-150); VLDL Cholesterol 22 mg/dL (0-40)
[2024-02-03 17:02] LABS: Albumin Level 4.1 g/dl (3.5-5.0); Albumin/Globulin Ratio 1.7 (1.1-1.8); Calcium 9.4 mg/dl (8.4-10.2); Chol/HDL Ratio 3.3 (1-3.5); Globulin 2.4 g/dL (1.3-3.2); Glucose 138 mg/dl (74-100); HDL Cholesterol 50 mg/dl (40-60); Total Protein,Serum 6.5 g/dl (6.3-8.2)
[2024-02-03 17:13] LABS: Direct LDL Cholesterol 82.87 mg/dL (100-129)
[2024-02-03 17:33] LABS: Thyroid Stimulating Hormone 1.91 uIU/mL (0.465-4.68)
[2024-02-03 18:36] LABS: Anion Gap 13.9 mEq/L (5-15); Carbon Dioxide 28 mmol/L (22.0-30.0)
== END 2024-02-03 23:59 ==
LOC: LAB.DROPOF 16:26
PROVIDERS: PCP Nurse Practitioner Family; Visit Provider Nurse Practitioner Family
DX: E11.9 Type 2 diabetes mellitus without complications (principal); E78.2 Mixed hyperlipidemia; Z79.85 Long-term (current) use of injectable non-insulin antidiabetic drugs
CPT/HCPCS: 80053; 80061; 83036; 84443

== ENCOUNTER 2024-02-10 08:59 | Day surgery (SDC) | payer MEDICARE, MEDICAID, SELFPAY ==
[2024-02-10] VITALS (11 sets, daily range): BP systolic 98–139; BP diastolic 65–100; PULSE 57–83; RESP 12–96; TEMP 36.6–36.7; O2SAT 96–100; BMI 34.3
--- NOTE | 2024-02-10 07:06 | IR_ITS ---
APPROVED REPORT Patient Location: Outpatient Steel Rule Die Maker Apprentice: ZULAY Pascual RT (R) PROCEDURES Left heart catheterization Left ventriculogram Selective coronary angiogram INDICATION Abnormal Myoview, Angina pectoris Informed consent was obtained prior to the procedure. COMPLICATIONS NONE Estimated Blood Loss: LESS THAN 10 ML TECHNIQUE One percent lidocaine used to anesthetize the right anterior aspect of the wrist. The right radial artery was accessed via the Seldinger technique. A 6 Belarusian sheath was placed in the right radial artery. 2.5 mg of Verapamil, 800 mcg of nitroglycerin, 1mg Lidocaine and 5000 U Heparin were given through the arterial sheath. The papa catheter was also used to perform left heart catheterization, left ventriculogram and selective coronary angiogram. At the end of the procedure the sheath was removed good hemostasis was achieved using Traclet band, patient was transferred to the postop holding area in stable condition. ANGIOGRAPHIC RESULTS The left main artery Normal The left anterior descending artery Is a small caliber vessel which does not supply the apex. Proximally there is a smooth 10 to 20% stenosis with a mid vessel 20% stenosis. The circumflex artery Nondominant proximal 10% stenosis with a mid vessel eccentric long 30% stenosis The right coronary artery Is dominant and has proximal 10% followed by an additional 30 to 40% stenosis with a mid vessel smooth 20% stenosis The PATEL ventriculogram reveals Normal 65% The left ventricular end-diastolic pressure 15 mmHg IMPRESSION Mild coronary disease above the LAD and circumflex artery as described above Moderate disease in the proximal dominant right coronary Unusually small LAD which is small caliber and does not supply the apex Normal ejection fraction Normal left ventricular end-diastolic pressure PLAN 1. Continue medical management 2. Aggressive risk factor modification Electronically signed by : Dallas Arvizu MD 02/10/2024 12:31:54
[2024-02-10 09:24] LABS: Basophils # 0.1 K/mm3 (0-0.2); Basophils % 1.6 % (0.1-2.0); Eosinophils # 0.6 K/mm3 (0.0-0.4); Eosinophils % 7.9 % (0.1-12.0); Hematocrit 44.9 % (37.0-47.0); Hemoglobin 14.4 g/dL (12.2-16.2); Lymphocytes # 2.5 K/mm3 (0.7-4.5); Lymphocytes % 30.7 % (10-50); Mean Corpuscular HGB Conc 32.2 g/dL (31.8-35.4); Mean Corpuscular Hemoglobin 30.5 pg (27.0-31.2); Mean Platelet Volume 8.3 fl (7.4-10.4); Monocytes # 0.4 K/mm3 (0.1-1.0); Monocytes % 5.1 % (1.7-9.3); Neutrophils # 4.5 K/mm3 (1.8-7.8); Neutrophils % 54.6 % (37.0-80.0); Platelet Count 251 K/mm3 (142-424); Red Blood Count 4.73 M/mm3 (4.20-5.40); Red Cell Distribution Width 13.8 % (11.5-17.5); White Blood Count 8.1 K/mm3 (4.8-10.8)
[2024-02-10 09:26] LABS: Chloride 109 mmol/L (98-107); Potassium 5.3 mmoL/L (3.5-5.1); Sodium 141 mmol/L (136-145)
[2024-02-10 09:30] LABS: Anion Gap 8.3 mEq/L (5-15); Blood Urea Nitrogen 18 mg/dl (7-17); Calcium 9.6 mg/dl (8.4-10.2); Carbon Dioxide 29 mmol/L (22.0-30.0); Creatinine Clearance Estimated 67 mL/min (50-200); Estimated Glomerular Filt Rate 83 ml/min (>60); GFR (African American) 100 ML/MIN (>60); Glucose 109 mg/dl (74-100)
[2024-02-10] MEDS: LIDOCAINE 1% 10ML MDV 20 ML IJ (10:58)
[2024-02-10] MEDS: HEPARIN 1,000 UNITS/500ML NS (CATH LAB) 3000 UNIT IV (10:58)
[2024-02-10] MEDS: HEPARIN 1,000 UNITS/ML 10ML VIAL (CATH LAB) 10000 UNIT IV (10:58)
[2024-02-10] MEDS: 0.9 % SODIUM CHLORIDE 500 ML 25 ML IV (10:58)
[2024-02-10] MEDS: NITROGLYCERIN 800MCG/8ML SYR (CATH LAB) 800 MCG IA (10:59)
[2024-02-10] MEDS: VERAPAMIL 2.5MG/ML 2ML VIAL 2.5 MG IV (10:59)
[2024-02-10] MEDS: diphenhydrAMINE 50MG/ML VIAL 50 MG IV (10:59)
[2024-02-10] MEDS: FENTANYL 100MCG/2ML VIAL 50 MCG IV (11:45)
[2024-02-10] MEDS: MIDAZOLAM HCL 1MG/1ML 5ML VIAL 1 MG IV (11:45)
[2024-02-10] MEDS: IOPAMIDOL-370 (76%);100ML BOTTLE 50 ML IV (12:21)
== END 2024-02-10 15:06 | disposition home or self-care (01) ==
PROVIDERS: PCP Nurse Practitioner Family; Visit Provider Internal Medicine
DX: R93.1 Abnormal findings on diagnostic imaging of heart and coronary circulation (principal); E78.5 Hyperlipidemia, unspecified; E11.9 Type 2 diabetes mellitus without complications; R06.00 Dyspnea, unspecified; I25.118 Atherosclerotic heart disease of native coronary artery with other forms of angina pectoris; Z95.5 Presence of coronary angioplasty implant and graft; R42 Dizziness and giddiness; I65.23 Occlusion and stenosis of bilateral carotid arteries; Z79.899 Other long term (current) drug therapy
CPT/HCPCS: 36415; 80048; 85025; 93458; 99152; C1725; C1769; J1644; Q9967

== ENCOUNTER 2024-02-21 17:34 | Outpatient (CLI) | payer MEDICARE, MEDICAID, SELFPAY ==
--- NOTE | 2024-02-21 17:34 | MR_ITS ---
PROCEDURE INFORMATION: Exam: MR Left Upper Extremity Joint Without Contrast; Shoulder Exam date and time: 02/21/2024 6:14 PM Age: 68 years old Clinical indication: Pain; Shoulder; Left; Additional info: Left shoulder, decreased rom post fall 12/17/23 TECHNIQUE: Imaging protocol: Magnetic resonance imaging of the left upper extremity without contrast. Exam focused on the shoulder. COMPARISON: 1. CR XR SHOULDER LT MIN 2V 12/17/2023 7:20 PM 2. CR XR HUMERUS LT 12/17/2023 7:21 PM FINDINGS: Limitations: This study is moderately limited by motion artifact. Bones/joints: Mild osteoarthritis involves the acromioclavicular joint with a moderate joint effusion. A mild effusion involves the glenohumeral joint. Benign subchondral cysts involve the humeral head. There is no acute fracture or dislocation. No aggressive bone lesions are present. Glenoid labrum: Evaluation of the labrum is limited on this study, but degenerative tearing of the labrum is suspected and would not be unusual in a patient of this age. Bursae: A mild amount of fluid is present in the subacromial-subdeltoid bursa. Supraspinatus tendon: Low-grade partial-thickness tearing involves the articular surface of the supraspinatus tendon. Moderate tendinosis involves the adjacent intact supraspinatus tendon. Infraspinatus tendon: No tear or significant tendinosis involves the infraspinatus tendon. Intermediate-grade intrasubstance tearing involves the infraspinatus tendon. There is moderate tendinosis of the adjacent intact infraspinatus tendon. Subscapularis tendon: Severe tendinosis involves the subscapularis tendon. Teres minor tendon: No tear or significant tendinosis involves the teres minor tendon. Tendon of biceps brachii: Severe tendinosis involves the intra-articular portion of the long head of the biceps tendon. Glenohumeral ligaments: Unremarkable as visualized. Soft tissues: There is mild global atrophy of the shoulder musculature. IMPRESSION: 1. Infraspinatus tendon intermediate-grade intrasubstance tearing superimposed on moderate tendinosis. 2. Low-grade partial-thickness tearing of the supraspinatus tendon articular surface, superimposed on moderate tendinosis. 3. Severe tendinosis of the subscapularis tendon and long head of the biceps tendon. 4. Mild subacromial-subdeltoid bursitis. 5. No fracture.
--- NOTE | 2024-02-21 17:34 | MR_ITS ---
PROCEDURE INFORMATION: Exam: MR Left Lower Extremity Joint Without Contrast, Knee Exam date and time: 02/21/2024 5:34 PM Age: 68 years old Clinical indication: Pain; Knee; Left; Prior surgery; Surgery date: 6+ months; Surgery type: Tka; Additional info: Left anterior knee pain post fall 12/17/23 TECHNIQUE: Imaging protocol: Magnetic resonance imaging of the left lower extremity joint without contrast. Exam focused on the knee. Sequences: Metal artifact reduction technique was utilized. COMPARISON: CR XR KNEE LT 3V 12/17/2023 7:27 PM FINDINGS: Limitations: Despite the use of metal artifact reduction technique, there is significant artifact from the total knee prosthesis. Bones/joints: The bones are partially obscured by metal artifact. The cartilage is presumed absent. There is no grossly apparent loosening or periprosthetic fracture although visualization is limited. A moderate joint effusion involves the knee. Medial meniscus: The medial meniscus is absent. Lateral meniscus: The lateral meniscus is absent. Anterior cruciate ligament: The anterior cruciate ligament is presumed to be absent unless this is a cruciate-sparing total knee prosthesis. Posterior cruciate ligament: The posterior cruciate ligament is presumed to be absent unless this is a cruciate-sparing total knee prosthesis. Medial capsule and supporting structures: The medial collateral ligament is predominantly obscured by metal artifact. Lateral capsule and supporting structures: The fibular collateral ligament is intact. Extensor mechanism of knee: The extensor mechanism is intact. Soft tissues: Mild atrophy involves the musculature surrounding the joint. Normal postoperative changes are present in the soft tissues. IMPRESSION: Within the limits of severe metal artifact from the total knee prosthesis, the extensor mechanism is intact and there is no periprosthetic fracture or gross evidence of loosening.
== END 2024-02-21 23:59 ==
LOC: RAD 17:34
PROVIDERS: PCP Nurse Practitioner Family; Visit Provider Nurse Practitioner Family
DX: M25.512 Pain in left shoulder (principal); M25.612 Stiffness of left shoulder, not elsewhere classified; M25.562 Pain in left knee; Z96.652 Presence of left artificial knee joint
CPT/HCPCS: 73221; 73721

== ENCOUNTER 2024-02-24 16:56 | Outpatient (CLI) | payer MEDICARE, MEDICAID, SELFPAY ==
[2024-02-24 17:50] LABS: Creatinine,Urine Random 71 mg/dL (Not Estab.)
[2024-02-24 17:53] LABS: Microalbumin/Creatinine Ratio 8.5
== END 2024-02-24 23:59 ==
LOC: LAB.DROPOF 16:58
PROVIDERS: PCP Nurse Practitioner Family; Visit Provider Nurse Practitioner Family
DX: E11.69 Type 2 diabetes mellitus with other specified complication (principal)
CPT/HCPCS: 82043; 82570

== ENCOUNTER 2024-04-17 12:23 | Outpatient (CLI) | payer MEDICARE, SELFPAY ==
--- NOTE | 2024-04-17 12:27 | XR_ITS ---
FINAL REPORT CLINICAL HISTORY: left lower rib pain, fall 03/27/24 COMPARISON: None FINDINGS: A single view of the chest with 3 views of the left ribs were obtained. There is no acute cardiopulmonary process. No pneumothorax is identified. There is irregularity of the distal ninth rib on the left side, that is worrisome for a small nondisplaced fracture. Degenerative changes present in the thoracolumbar spine with an S-shaped curvature. IMPRESSION: Irregularity of the distal ninth rib on the left, worrisome for a small nondisplaced fracture. S-shaped curvature of the thoracolumbar spine. Reviewed, Interpreted and Dictated by Dinh Serrano III, MD Transcribed by Natalia Iglesias Authenticated and [facility]
== END 2024-04-17 23:59 | disposition home or self-care (01) ==
LOC: RAD 12:24
PROVIDERS: PCP Nurse Practitioner Family; Visit Provider Nurse Practitioner Family
DX: R07.81 Pleurodynia (principal)
CPT/HCPCS: 71101

== ENCOUNTER 2024-06-13 17:12 | Emergency (ER) | payer MEDICARE, SELFPAY ==
--- OUTSIDE RECORDS SUMMARY | 2024-06-13 17:18 | XMS_ITS ---
Author Name Mauricio Prakash Address [address] [place] [id number] Organization Unknown Address [address] [place] [id number] ALLERGIES AND ADVERSE REACTIONS No information ASSESSMENT No information CHIEF COMPLAINT No information MEDICATIONS No information OBJECTIVE DATA No information PHYSICAL EXAMINATION No information TREATMENT PLAN Planned Care Start Date Provider Encounter for Check-up [id number] AC [place] PROBLEMS No information RESULTS No information REVIEW OF SYSTEMS No information SUBJECTIVE DATA No information VITAL SIGNS No information
--- OUTSIDE RECORDS SUMMARY | 2024-06-13 17:18 | XMS_ITS ---
Author Organization [facility] ALLERGIES AND ADVERSE REACTIONS No information ASSESSMENT No information CHIEF COMPLAINT No information Medications Date Medication Dosage Dosageunit Active Dispense Refills Ndccod e Srcstatus 2022 00:00: 00 Ozempic (1 MG/DOSE) 4 MG/3ML Solution Pen-injecto r 1 4 Milliliter 1 [id number] Start 2022 00:00: 00 Ozempic (1 MG/DOSE) 4 MG/3ML Solution Pen-injecto r 0 3 Milliliter 1 [id number] Stop OBJECTIVE DATA No information PHYSICAL EXAMINATION No information TREATMENT PLAN No information PROBLEMS No information RESULTS No information REVIEW OF SYSTEMS No information SUBJECTIVE DATA No information VITAL SIGNS No information
[2024-06-13 18:05] VITALS: BP 140/82; PULSE 68; RESP 18; TEMP 36.6; O2SAT 96; BMI 31.2
--- NOTE | 2024-06-13 18:22 | EXP.UTC ---
Discharge Plan Disposition Patient Disposition: Home, Self-Care Condition: Good Prescriptions Prescriptions: No Action (DME) blood-glucose meter [Accu-Chek Guide Glucose Meter] Misc See Rx Instructions .Route Qty: 1 0RF Rx Instructions: As directed (DME) Accu-Chek Guide test strips Strip See Rx Instructions .Route Qty: 100 1RF Rx Instructions: As directed daily (DME) lancets [Accu-Chek Softclix Lancets] Misc See Rx Instructions .Route Qty: 100 1RF Rx Instructions: As directed daily atorvastatin 80 mg tablet 80 mg PO HS Patient Comments: TAKE 1 TABLET BY MOUTH ONCE DAILY FOR CHOLESTEROL clopidogrel 75 mg tablet 75 mg PO DAILY Patient Comments: TAKE 1 TABLET BY MOUTH ONCE DAILY FOR BLOOD THINNER pantoprazole 40 mg tablet,delayed release (DR/EC) 40 mg PO DAILY Patient Comments: TAKE 1 TABLET BY MOUTH ONCE DAILY azelastine 137 mcg (0.1 %) spray,non-aerosol 1 spray INTRANASAL DAILY Patient Comments: USE 1 SPRAY(S) IN EACH NOSTRIL EVERY 12 HOURS ramipril 5 mg capsule 5 mg PO DAILY Patient Comments: TAKE 1 CAPSULE BY MOUTH ONCE DAILY FOR HIGH BLOOD PRESSURE levocetirizine 5 mg tablet 5 mg PO DAILY Patient Comments: TAKE 1 TABLET BY MOUTH ONCE DAILY Ozempic 1 mg/dose (4 mg/3 mL) pen injector 1 mg SQ WEEKLY Patient Comments: INJECT 1 MG SUBCUTANEOUSLY ONCE A WEEK Referrals Follow up/Referrals: Roxann Olivera APRN [Primary Care Provider] - See instructions Activity Restrictions/Add. Instructions Additional Instructions/Restrictions: Rest the extremity, Elevate the extremity as tolerated while you are resting. Take tylenol for pain. Return in the morning to have the venous doppler ultrasound done of your leg. Follow up with your regular doctor. GO TO THE ER FOR ANY WORSENING SYMPTOMS Clinical Impressions Clinical Impression: Pain in left lower leg, Left leg swelling Instructions Patient Instructions: DI for Leg Pain Print Language Print Language: Yi Discharge ED Provider: Moe Hare [facility] General Stated complaint: left leg hurting Mode of Arrival: Ambulatory Source of Information: Patient Limitations: No Limitations Time Seen by Provider: 06/13/24 18:22 Description of Symptoms (Recalled from Triage Doc. by RN): PATIENT C/O PAIN TO BACK OF LEFT KNEE FOR APPROX 1 WEEK HEENT Symptoms (Recalled from RN notes): No Resp Symptoms (Recalled from RN notes): No Skin Symptoms (Recalled from RN notes): No MS Symptoms (Recalled from RN notes): Yes Functional Status (Recalled from RN notes): WNL History of Present Illness Provider Complaint: She states that for the past 1 week she has had pain in the back of her left calf. She denies any known injury. She came in because she is worried about a blood clot. She denies any personal or family history of blood clots. Related Data Home Medications ?Medication ?Instructions ?Recorded ?Confirmed atorvastatin 80 mg tablet 80 mg PO HS 06/13/24 06/13/24 azelastine 137 mcg (0.1 %) nasal 1 spray intranasal DAILY 06/13/24 06/13/24 spray clopidogrel 75 mg tablet 75 mg PO DAILY 06/13/24 06/13/24 levocetirizine 5 mg tablet 5 mg PO DAILY 06/13/24 06/13/24 pantoprazole 40 mg tablet,delayed 40 mg PO DAILY 06/13/24 06/13/24 release ramipril 5 mg capsule 5 mg PO DAILY 06/13/24 06/13/24 semaglutide 1 mg/dose (4 mg/3 mL) 1 mg SQ WEEKLY 06/13/24 06/13/24 subcutaneous pen injector (Ozempic) Previous Rx's ?Medication ?Instructions ?Recorded blood sugar diagnostic (Accu-Chek #100 ea 10/26/23 Guide test strips) blood-glucose meter (Accu-Chek #1 ea 10/26/23 Guide Glucose Meter) lancets (Accu-Chek Softclix #100 ea 10/26/23 Lancets) Allergies Allergy/AdvReac Type Severity Reaction Status Date / Time codeine [CODEINE] Allergy Mild NA-NAUSEA/V Verified 05/01/24 13:39 OMITING hydrocodone [HYDROCODONE] Allergy Mild NA-NAUSEA/V Verified 05/01/24 13:39 OMITING Worker's Comp Is this a Worker's Comp case?: No [facility] Disclaimer: The information contained in this section may have been updated after the patient was seen, as this information can be updated by other users. Medical History Abnormal nuclear cardiac imaging test History of left heart catheterization Cataract (lens) fragments in eye following cataract surgery, bilateral Dizziness Atypical angina Abnormal cardiovascular stress test Dyspnea Family history of heart disease Gastroesophageal reflux disease Abnormal EKG Near syncope Palpitations Chest pain Surgical History H/O heart artery stent Hx of cholecystectomy History of left knee replacement History of carpal tunnel release H/O gastric bypass Family History Sister Diabetes Father Vasculitis Mother COPD (chronic obstructive pulmonary disease) Social History Smoking Status: Never smoker second hand exposure: No alcohol intake: never substance use type: denies use current occupational status: retired Travel in the last 8 weeks: None household members: family housing: house 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 current occupational exposures/hazards: No caffeine: Yes ROS Obtained: Yes All systems reviewed & no additional complaints except as documented Constitutional Constitutional: Denies chills and Denies fever(s) Eyes Eyes: Denies eye discharge ENT Ears, Nose, Mouth, and Throat: Denies dizziness, Denies otalgia and Denies sore throat Cardiovascular Cardiovascular: Denies chest pain Respiratory Respiratory: Denies shortness of breath, Denies chest congestion, Denies cough, Denies stridor and Denies wheezing Gastrointestinal Gastrointestingal: Denies nausea or vomiting Musculoskeletal Musculoskeletal: Reports as per HPI Integumentary/Breasts Skin/Breast: Denies rash Neurologic Neurologic: Denies dizziness and Denies paresthesias Allergic/Immunologic Allergic/Immunologic: Denies wheezing Physical Exam General General appearance: alert and in no apparent distress Head Head exam: atraumatic, normocephalic and normal inspection Eye Eye exam: Present normal appearance, PERRL and EOMI ENT ENT exam: Present normal exam, normal oropharynx, mucous membranes moist, TM's normal bilaterally and normal external ear exam Neck Neck exam: Present normal inspection, full ROM and trachea midline; Absent meningismus or lymphadenopathy Chest Chest inspection: Present normal inspection and symmetric chest wall rise; Absent tenderness Respiratory Respiratory exam: Present normal lung sounds bilaterally; Absent respiratory distress Cardiovascular Cardiovascular exam: Present regular rate and normal rhythm; Absent JVD Abdominal Exam Abdominal exam: Present soft and normal bowel sounds; Absent distention, tenderness or guarding Extremities Exam Extremities exam: Present normal inspection, full ROM and normal capillary refill; Absent calf tenderness Back Exam Back exam: Present normal inspection; Absent tenderness Neurological Exam Neurological exam: Present alert and oriented X3 Psychiatric Psychiatric exam: Present normal affect and normal mood Skin Skin exam: Present warm, dry, intact and normal color Lymphatic Lymphatic Findings: no adenopathy Medical Decision Making Medical Records Medical records reviewed: No I reviewed the patient's medical records. Levy Inquiry Pt receiving controlled substance: No Vital Signs: 06/13/24 18:05 Temperature 97.8 F Temperature Source Oral Pulse Rate [Left Brachial] 68 Respiratory Rate 18 Blood Pressure [Left Arm] 140/82 Blood Pressure Mean [Left Arm] 101 Blood Pressure Source [Left Arm] Automatic Cuff Blood Pressure Position [Left Arm] Sitting 02 Sat by Pulse Oximetry 96 Oxygen Delivery Method Room Air Medical Decision Narrative: A venous doppler was ordered for tomorrow morning.
[2024-06-13 18:33] VITALS: BP 140/82; PULSE 68; RESP 18; TEMP 36.6; O2SAT 96
== END 2024-06-13 18:36 | disposition home or self-care (01) ==
PROVIDERS: Emergency Provider Nurse Practitioner Family; PCP Nurse Practitioner Family
DX: M79.662 Pain in left lower leg (principal); R22.42 Localized swelling, mass and lump, left lower limb
CPT/HCPCS: 99212; 99213; G0463

== ENCOUNTER 2024-06-14 11:02 | Outpatient (CLI) | payer MEDICARE, SELFPAY ==
--- NOTE | 2024-06-14 | CA_ITS ---
FINAL REPORT TECHNIQUE: Ultrasound images of the deep venous system were obtained from the left groin to the calf veins. CLINICAL HISTORY: HTN, HLD, DM. Patient denies trauma, states pain LLE started 1 week ago. States it hurts in the distal posterior lateral aspect of left thigh. Patient takes Plavix and 81 mg ASA daily. COMPARISON: None FINDINGS: The deep venous system is normally compressible. Normal flow is identified. IMPRESSION: No evidence of left lower extremity DVT. Reviewed, Interpreted and Dictated by Alek Falk MD Transcribed by Natalia Iglesias Authenticated and [facility]
== END 2024-06-14 23:59 | disposition home or self-care (01) ==
LOC: RT 11:04
PROVIDERS: PCP Nurse Practitioner Family; Visit Provider Nurse Practitioner Family
DX: M79.605 Pain in left leg (principal)
CPT/HCPCS: 93971

== ENCOUNTER 2024-07-03 14:23 | Outpatient (CLI) | payer MEDICARE, SELFPAY ==
[2024-07-03 14:46] LABS: Hemoglobin A1C 5.6 % (4.0-6.0)
[2024-07-03 14:51] LABS: Alanine Aminotransferase 22 U/L (12-78); Albumin Level 3.8 g/dl (3.5-5.0); Albumin/Globulin Ratio 1.4 (1.1-1.8); Anion Gap 10.9 mEq/L (5-15); Aspartate Amino Transferase 31 U/L (14-36); Blood Urea Nitrogen 15 mg/dl (7-17); Calcium 9.6 mg/dl (8.4-10.2); Carbon Dioxide 29 mmol/L (22.0-30.0); Chloride 108 mmol/L (98-107); Cholesterol 186 mg/dl (140-200); Estimated Glomerular Filt Rate 99 ml/min (>60); GFR (African American) 120 ML/MIN (>60); Globulin 2.8 g/dL (1.3-3.2); Glucose 89 mg/dl (74-100); HDL Cholesterol 58 mg/dl (40-60); Potassium 5.9 mmoL/L (3.5-5.1); Sodium 142 mmol/L (136-145); Total Protein,Serum 6.6 g/dl (6.3-8.2); Triglycerides 100 mg/dl (30-150); VLDL Cholesterol 20 mg/dL (0-40)
[2024-07-03 14:52] LABS: Alkaline Phosphatase 76 U/L (38-126); Chol/HDL Ratio 3.2 (1-3.5)
[2024-07-03 15:02] LABS: Direct LDL Cholesterol 96.05 mg/dL (100-129)
== END 2024-07-03 23:59 | disposition home or self-care (01) ==
LOC: LAB.DROPOF 14:24
PROVIDERS: PCP Nurse Practitioner Family; Visit Provider Nurse Practitioner Family
DX: E11.9 Type 2 diabetes mellitus without complications; Z79.85 Long-term (current) use of injectable non-insulin antidiabetic drugs; E78.5 Hyperlipidemia, unspecified; I10 Essential (primary) hypertension
CPT/HCPCS: 80053; 80061; 82043; 83036; 84443

== ENCOUNTER 2024-08-31 16:58 | Outpatient (CLI) | payer MEDICARE, SELFPAY ==
[2024-08-31 16:49] LABS: Basophils # 0.1 K/mm3 (0-0.2); Basophils % 0.7 % (0.1-2.0); Eosinophils # 0.1 K/mm3 (0.0-0.4); Eosinophils % 0.7 % (0.1-12.0); Hematocrit 44.2 % (37.0-47.0); Hemoglobin 14.9 g/dL (12.2-16.2); Lymphocytes # 1.8 K/mm3 (0.7-4.5); Lymphocytes % 22.1 % (10-50); Mean Corpuscular HGB Conc 33.8 g/dL (31.8-35.4); Mean Corpuscular Volume 88.8 fl (81-99); Mean Platelet Volume 8.5 fl (7.4-10.4); Monocytes # 0.3 K/mm3 (0.1-1.0); Monocytes % 4.1 % (1.7-9.3); Neutrophils % 72.4 % (37.0-80.0); Platelet Count 259 K/mm3 (142-424); Red Blood Count 4.98 M/mm3 (4.20-5.40); Red Cell Distribution Width 13.4 % (11.5-17.5); White Blood Count 8.2 K/mm3 (4.8-10.8)
[2024-08-31 16:59] LABS: Chloride 103 mmol/L (98-107)
[2024-08-31 17:00] LABS: Albumin Level 4.5 g/dl (3.5-5.0); Potassium 4.7 mmoL/L (3.5-5.1); Sodium 138 mmol/L (136-145)
[2024-08-31 17:03] LABS: Alanine Aminotransferase 19 U/L (12-78); Albumin/Globulin Ratio 1.7 (1.1-1.8); Alkaline Phosphatase 108 U/L (38-126); Amylase 57 U/L (30-110); Anion Gap 18.7 mEq/L (5-15); Aspartate Amino Transferase 24 U/L (14-36); Bilirubin,Total 1.4 mg/dl (0.2-1.3); Blood Urea Nitrogen 20 mg/dl (7-17); Calcium 9.7 mg/dl (8.4-10.2); Carbon Dioxide 21 mmol/L (22.0-30.0); Estimated Glomerular Filt Rate 83 ml/min (>60); GFR (African American) 100 ML/MIN (>60); Globulin 2.6 g/dL (1.3-3.2); Glucose 71 mg/dl (74-100); Lipase 113 U/L (23-300); Total Protein,Serum 7.1 g/dl (6.3-8.2)
== END 2024-08-31 23:59 | disposition home or self-care (01) ==
LOC: LAB.DROPOF 16:58
PROVIDERS: PCP Nurse Practitioner Family; Visit Provider Nurse Practitioner Family
DX: R10.10 Upper abdominal pain, unspecified (principal); R11.0 Nausea
CPT/HCPCS: 80053; 82150; 83690; 85025

== ENCOUNTER 2024-09-04 13:34 | Outpatient (CLI) | payer MEDICARE, SELFPAY ==
[2024-09-04 13:40] LABS: Microscopic, Urine URINE MICROSCOPIC (MICROSCOPIC)
[2024-09-04 13:40] LABS: Adenovirus F 40/41, stool Not Detected (NotDetected); Astrovirus Not Detected (NotDetected); Campylobacter Not Detected (NotDetected); Clostridium Difficile A/B, PCR Not Detected (NotDetected); Cryptosporidium Not Detected (NotDetected); Cyclospora Cayetanesis Not Detected (NotDetected); Entamoeba histolytica Not Detected (NotDetected); Enteroaggregative E coli Not Detected (NotDetected); Enteropathogenic E coli Not Detected (NotDetected); Enterotoxigenic E coli Not Detected (NotDetected); Giardia lamblia Not Detected (NotDetected); Norovirus Not Detected (NotDetected); Plesimonas Shigalloides, PCR Not Detected (NotDetected); Rotavirus A Not Detected (NotDetected); Salmonella, PCR Not Detected (NotDetected); Sapovirus Not Detected (NotDetected); Shiga-like toxin E coli Not Detected (NotDetected); Shigella Enterovasive E coli Not Detected (NotDetected); Vibrio Cholerae Not Detected (NotDetected); Vibrio, PCR Not Detected (NotDetected); Yersinia Entercolitica, PCR Not Detected (NotDetected)
[2024-09-04 15:35] LABS: Appearance,Urine CLEAR (Clear); Bilirubin,Urine Negative (Negative); Blood, Urine Negative (Negative); Color,Urine YELLOW (Yellow); Glucose,Urine (UA) Negative (Negative); Ketones,Urine Negative (Negative); Leukocyte Esterase,Urine TRACE (Negative); Nitrate,Urine Negative (Negative); PH,Urine 5.5 (5.0-8.5); Protein,Urine Negative (Negative); Specific Gravity, Urine >= 1.030 (1.005-1.030); Urobilinogen,Urine 0.2 EU/dl (0.2)
[2024-09-04 17:58] LABS: Bacteria,Urine 4+ /lpf; Mucus,Urine 4+ /lpf
== END 2024-09-04 23:59 | disposition home or self-care (01) ==
LOC: LAB 12-17 09:28
PROVIDERS: Visit Provider Nurse Practitioner Family
DX: R19.7 Diarrhea, unspecified (principal); N39.0 Urinary tract infection, site not specified
CPT/HCPCS: 81001; 87086; 87506

== ENCOUNTER 2024-09-20 07:48 | Outpatient (CLI) | payer MEDICARE, MEDICAID, SELFPAY ==
--- NOTE | 2024-09-20 07:49 | CT_ITS ---
FINAL REPORT TECHNIQUE: Postcontrast axial images through the abdomen and pelvis were performed. This study was performed with techniques to keep radiation doses as low as reasonably achievable, (ALARA). Individualized dose reduction techniques using automated exposure control or adjustment of mA and/or kV according to the patient's size were employed. CLINICAL HISTORY: .upper abd pain, nausea, abd cramping COMPARISON: 08/23/2023 FINDINGS: Abdomen: There are new, right lower lobe nodules measuring up to 8 mm which are nonspecific. The liver is normal in size and attenuation. Patient is status postcholecystectomy and gastric bypass. The spleen is unremarkable. The adrenals are normal. The pancreas is unremarkable. There are left renal stones measuring up to 7 mm. Mild left renal scarring is identified. There is a small right renal cyst. Moderate vascular calcification is identified. The aorta is normal in caliber. No free fluid or adenopathy is identified. No findings for mechanical bowel obstruction are identified. Pelvis: The appendix is not identified. There is descending and sigmoid diverticulosis without evidence of diverticulitis. The urinary bladder is unremarkable. No free fluid, free air, abscess or adenopathy is identified. IMPRESSION: Right lower lobe nodules, favor inflammatory but recommend follow-up CT in 3 to 6 months. Left nephrolithiasis. Descending and sigmoid diverticulosis. Reviewed, Interpreted and Dictated by Dinh Serrano III, MD Transcribed by Yulia Adkins Authenticated and [facility]
[2024-09-20] MEDS: IOPAMIDOL-370 (76%);100ML BOTTLE 75 ML IV (08:25)
[2024-09-20] MEDS: SODIUM CHLORIDE 0.9% 10ML SYR (RAD ONLY) 10 ML IV (08:25)
== END 2024-09-20 23:59 | disposition home or self-care (01) ==
LOC: RAD 07:49
PROVIDERS: PCP Nurse Practitioner Family; Visit Provider Nurse Practitioner Family
DX: R10.10 Upper abdominal pain, unspecified (principal); R11.0 Nausea
CPT/HCPCS: 74177; Q9967

== ENCOUNTER 2024-09-25 10:20 | Outpatient (CLI) | payer MEDICARE, MEDICAID, SELFPAY ==
--- OUTSIDE RECORDS SUMMARY | 2024-09-25 10:21 | XMS_ITS ---
Laboratory report Created on: July 27, 2024 IFEANYI HERNANDEZ : 1955 Sex: Female Author Name IRISH ANDERSEN [employer] Unknown PROBLEMS Problems List Code Description E11.9 E78.5 E03.9 RESULTS Laboratory Orders Date Order Code Test 2022-12-28 [id number] TSH+FREE T4 2022-12-28 [id number] COMP. METABOLIC PANEL (14) 2022-12-28 [id number] LIPID PANEL Laboratory Results Date LOINC Test Value Unit Reference Range Interpre tation 2022-12-28 31860-0 TSH 2.94 UIU/ML 0.450-4.500 2022-12-28 3024-7 T4,FREE(DIRECT) 1.18 NG/DL 0.82-1.77 2022-12-28 2345-7 GLUCOSE 143 MG/DL 70-99 H 2022-12-28 3094-0 BUN 17 MG/DL 8-27 2022-12-28 2160-0 CREATININE .74 MG/DL 0.57-1.00 2022-12-28 82813-5 EGFR 88 ML/MIN/1.7 3 >59 2022-12-28 3097-3 BUN/CREATININE RATIO 23 12-2022-12-28 2951-2 SODIUM 142 MMOL/L 217-261 7303-02-14 2823-3 POTASSIUM 4.2 MMOL/L 3.5-5.2 2022-12-28 2075-0 CHLORIDE 102 MMOL/L 96-106 2022-12-28 2028-9 CARBON DIOXIDE, TOTAL 23 MMOL/L -2022-12-28 62926-2 CALCIUM 9.3 MG/DL 8.7-10.3 2022-12-28 2885-2 PROTEIN, TOTAL 7.1 G/DL 6.0-8.5 2022-12-28 1751-7 ALBUMIN 4.6 G/DL 3.8-4.8 2022-12-28 34386-3 GLOBULIN, TOTAL 2.5 G/DL 1.5-4.5 2022-12-28 1759-0 A/G RATIO 1.8 1.2-2.2 2022-12-28 1975-2 BILIRUBIN, TOTAL .5 MG/DL 0.0-1.2 2022-12-28 6768-6 ALKALINE PHOSPHATASE 107 IU/L 44-121 2022-12-28 1920-8 AST (SGOT) 18 IU/L 0-40 2022-12-28 1742-6 ALT (SGPT) 15 IU/L 0-32 2022-12-28 2093-3 CHOLESTEROL, TOTAL 177 MG/DL 248-210 0762-02-14 2571-8 TRIGLYCERIDES 122 MG/DL 0-149 2022-12-28 2085-9 HDL CHOLESTEROL 59 MG/DL >39 2022-12-28 70914-2 VLDL CHOLESTEROL RASHAD 22 MG/DL 5-40 2022-12-28 28562-9 LDL CHOL CALC ([facility]) 96 MG/DL 0-99
--- OUTSIDE RECORDS SUMMARY | 2024-09-25 10:21 | XMS_ITS ---
Laboratory report Created on: July 27, 2024 IFEANYI HERNANDEZ : 1955 Sex: Female Author Organization Unknown PROBLEMS Problems List Code Description RESULTS Laboratory Orders Date Order Code Test 2023-08-19 [id number] STOOL CULTURE Laboratory Results Date LOINC Test Value Unit Reference Range Interpre tation 2023-08-19 33628-9 SALMONELLA/SHIGE LLA SCREEN FINAL 2023-08-19 6463-4 RESULT 1 NSS 2023-08-19 6331-3 CAMPYLOBACTER CULTURE FINAL 2023-08-19 6463-4 RESULT 1 NCI 2023-08-19 41627-2 E COLI SHIGA TOXIN EIA N NEGATI VE
--- NOTE | 2024-09-25 10:27 | CA_ITS ---
FINAL REPORT TECHNIQUE: Color Doppler, duplex Doppler and jean scale sonography of the bilateral neck vasculature was performed. Velocities were measured in the carotid arteries. Stenosis evaluation based on velocity criteria. CLINICAL HISTORY: ASCVD-coronary, stents, Family HX-CANDIE COMPARISON: None FINDINGS: The peak systolic velocity of the right common carotid artery is 108 cm/sec and internal carotid artery 111 cm/sec. The diastolic velocity in the internal carotid artery is 31 cm/sec. The ICA/CCA ratio is 1.4. Visually, a small amount of plaque is seen. These findings are consistent with less than 50% stenosis. The external carotid artery is patent. The right vertebral artery is patent with antegrade flow. The peak systolic velocity of the left common carotid artery is 99 cm/sec and internal carotid artery 105 cm/sec. The diastolic velocity in the internal carotid artery is 23 cm/sec. The ICA/CCA ratio is 1.0. Visually, a small amount of plaque is seen. These findings are consistent with less than 50% stenosis. The external carotid artery is patent. The left vertebral artery is patent with antegrade flow. IMPRESSION: No evidence of significant carotid stenosis. Bilateral patent vertebral arteries. If indicated, CTA or catheter angiography could further evaluate. Reviewed, Interpreted and Dictated by Dinh Serrano III, MD Transcribed by Natalia Iglesias Authenticated and [facility]
== END 2024-09-25 23:59 | disposition home or self-care (01) ==
LOC: RT 10:20
PROVIDERS: PCP Nurse Practitioner Family; Visit Provider Physician Assistant
DX: R42 Dizziness and giddiness (principal)
CPT/HCPCS: 93880

== ENCOUNTER 2024-11-27 08:43 | Outpatient (CLI) | payer MEDICARE, MEDICAID, SELFPAY ==
--- NOTE | 2024-11-27 08:44 | MR_ITS ---
FINAL REPORT TECHNIQUE: Multiplanar MR without gadolinium enhancement CLINICAL HISTORY: Right hand numbness cervical neck pain, LIMITED ROM IN LEFT SHOULDER. NUMBNESS IN RIGHT HAND. LEFT SIDED NECK AND ARM PAIN. COMPARISON: None FINDINGS: Limited images of the posterior fossa are unremarkable. Alignment is normal. Cervical spinal cord shows normal signal and contour. C2-3: A tiny left paracentral disc protrusion is noted without evidence of significant canal stenosis or neural foraminal narrowing. C3-4: A tiny left paracentral disc protrusion is noted without evidence of significant canal stenosis or neural foraminal narrowing. C4-5: A small central disc protrusion minimally contacts the cervical cord without focal compression. C5-6: A minimal annular bulge is present with facet arthropathy and moderate left neural foraminal narrowing. C6-7: A mild annular bulge is present along with facet arthropathy and mild left neural foraminal narrowing. C7-T1: There is no evidence of central canal stenosis or neural foraminal narrowing. IMPRESSION: Mild to moderate degenerative disc disease is present, most prominent at the C5-6 level with moderate left neural foraminal narrowing. Reviewed, Interpreted and Dictated by Jese Luna MD Transcribed by Natalia Iglesias Authenticated and [facility]
== END 2024-11-27 23:59 | disposition home or self-care (01) ==
LOC: RAD 08:43
PROVIDERS: PCP Nurse Practitioner Family; Visit Provider Nurse Practitioner Family
DX: M54.2 Cervicalgia (principal); R20.0 Anesthesia of skin
CPT/HCPCS: 72141

== ENCOUNTER 2024-11-28 11:18 | Outpatient (CLI) | payer MEDICARE, SELFPAY ==
--- NOTE | 2024-11-28 11:21 | XR_ITS ---
FINAL REPORT TECHNIQUE: Left shoulder 2 views CLINICAL HISTORY: Left shoulder Pain COMPARISON: None FINDINGS: LEFT SHOULDER Two views show no evidence of acute displaced fracture or dislocation of the visualized bony architecture. Mild degenerative changes are present. Osteopenia is noted. IMPRESSION: Mild degenerative changes without acute bony abnormality. Reviewed, Interpreted and Dictated by Jese Luna MD Transcribed by Natalia Iglesias Authenticated and [facility]
== END 2024-11-28 23:59 | disposition home or self-care (01) ==
PROVIDERS: PCP Nurse Practitioner Family; Visit Provider Physician Assistant Surgical
DX: M25.512 Pain in left shoulder (principal)
CPT/HCPCS: 73030

== ENCOUNTER 2025-01-09 10:10 | Outpatient (CLI) | payer MEDICARE, MEDICAID, SELFPAY ==
--- NOTE | 2025-01-09 10:10 | MM_ITS ---
PROCEDURE INFORMATION: Exam: MG Bilateral Screening 3D Mammography Exam date and time: 01/09/2025 10:17 AM Age: 69 years old Clinical indication: Screening examination. TECHNIQUE: Imaging protocol: Bilateral Screening tomosynthesis and 2D mammography including computer-aided detection (CAD) when performed. COMPARISON: 1. MG MM DIG SCREENING MAMM BI W/CAD 01/28/2023 8:23 AM 2. MG DMSB DIG MAMM-SCREEN MAYELA 10/16/2013 3:42 PM FINDINGS: MAMMOGRAPHY: Breast composition: There are scattered areas of fibroglandular density. Mass: None. Architectural distortion: Questionable distortion in the left upper inner quadrant at the posterior depth. Calcifications: No suspicious calcifications. Asymmetric density: None. Skin thickening: None. Axillary adenopathy: None. IMPRESSION: Patient to be recalled for spot compression views of the left breast in the CC and MLO projections, a full 90 degree lateral view, and left breast ultrasound for further evaluation of a left breast mass. ASSESSMENT: BI-RADS Category 0: Incomplete- Need Additional Imaging Evaluation.
== END 2025-01-09 23:59 | disposition home or self-care (01) ==
LOC: RAD 10:10
PROVIDERS: PCP Nurse Practitioner Family; Visit Provider Nurse Practitioner Family
DX: Z12.31 Encounter for screening mammogram for malignant neoplasm of breast (principal)
CPT/HCPCS: 77063; 77067

== ENCOUNTER 2025-01-22 12:49 | Outpatient (CLI) | payer MEDICARE, MEDICAID, SELFPAY ==
--- NOTE | 2025-01-22 12:56 | US_ITS ---
PROCEDURE INFORMATION: Exam: US Left Breast, Complete MG Left Diagnostic Breast Tomosynthesis Exam date and time: 01/22/2025 1:22 PM Age: 69 years old Clinical indication: Patient recalled on the basis of a screening mammogram for further evaluation; Left breast; architectural distortion TECHNIQUE: Imaging protocol: Complete ultrasound of all four quadrants of the left breast and the retroareolar regions, including ultrasound of the axilla when performed. Left Diagnostic tomosynthesis and 2D mammography including computer-aided detection (CAD) when performed. Unilateral or bilateral exam. COMPARISON: MG MM DIG SCREENING MAMM BI W/CAD 01/09/2025 10:17 AM FINDINGS: MAMMOGRAPHY: Breast composition: There are scattered areas of fibroglandular density (based on the most recent screening mammogram report). Breast mammogram findings: Digital diagnostic spot compression views of the left breast and 90 degree lateral view of the left breast demonstrate persistent architectural distortion in the posterior change in seen left upper inner quadrant measuring approximately 1 cm in greatest dimension. ULTRASOUND: Breast ultrasound findings: Sonographic images of the left breast including the retroareolar region, all 4 quadrants and the axilla do not demonstrate any solid masses. Few scattered subcentimeter benign cysts. No architectural distortion or acoustical shadowing. e although IMPRESSION: Persistent architectural distortion only seen on mammography stereotactic core biopsy is recommended for further evaluation. ASSESSMENT: BI-RADS Category 4: Suspicious.
== END 2025-01-22 23:59 | disposition home or self-care (01) ==
LOC: RAD 12:50
PROVIDERS: PCP Nurse Practitioner Family; Visit Provider Nurse Practitioner Family
DX: R92.8 Other abnormal and inconclusive findings on diagnostic imaging of breast (principal)
CPT/HCPCS: 76641; 77061; 77065; G0279

== ENCOUNTER 2025-02-04 09:50 | Outpatient (CLI) | payer MEDICARE, MEDICAID, SELFPAY ==
--- NOTE | 2025-02-04 09:55 | MM_ITS ---
FINAL REPORT CLINICAL HISTORY: left breast density FINDINGS: PROCEDURE: VACUUM ASSISTED STEREOTACTIC BREAST NEEDLE CORE BIOPSY INDICATION: Architectural distortion medial left breast TECHNIQUE/FINDINGS: Informed consent was obtained. Time-out was observed to verify patient's identity and correct location of the breast abnormality. A superior to inferior approach was used. The patient was placed prone on the procedure table. The lesion was targeted with stereotactic images. The breast was cleansed with Betadine and local anesthesia was obtained with 1% Lidocaine, with and without Epinephrine. A small skin incision was made with a scalpel and an 9 gauge Mammotome probe was then advanced into the breast using tomographic and stereotactic guidance. Images were obtained to confirm accurate positioning of the probe. Multiple vacuum-assisted core samples were then obtained in a radial fashion. A MammPhizzlerk tissue marker clip was placed at the biopsy site for future monitoring. The needle was withdrawn and pressure was applied until all appreciable bleeding subsided. The incision was closed with Steri-strips and a dressing/ice pack was applied. Routine mammographic images were obtained in MLO and CC projections to document position of the clip relative to the biopsy site. Biopsy marker clip is noted to be in good position. Post-biopsy instructions were reviewed with the patient and a written copy was given to the patient as well. IMPRESSION: Technically successful stereotactic biopsy of area of architectural distortion left breast Histopathology results reveal complex sclerosing lesion without atypia.. Pathology is concordant with mammographic findings. Recommend 6-month mammographic follow-up as routine post benign biopsy surveillance Authenticated and [facility]
--- NOTE | 2025-02-04 09:55 | MM_ITS ---
FINAL REPORT CLINICAL HISTORY: S/P BIOPSY , CLIP PLACEMENT FINDINGS: MAMMOGRAM LEFT 2D TECHNIQUE: Standard digital 2D views COMPARISON: 01/09/2025 and 01/22/2025 DENSITY: There are scattered areas of fibroglandular density FINDINGS: Post biopsy marker clip is noted in satisfactory position. Postbiopsy changes are noted. IMPRESSION: Biopsy marker clip in good position ASSESSMENT: Post procedure mammogram for marker placement RECOMMENDATION: Given findings of complex sclerosing lesion without atypia, 6-month mammographic follow-up is recommended as normal post benign biopsy surveillance. Authenticated and [facility]
[2025-02-04] MEDS: ALPRAZolam 0.5MG TABLET 0.5 MG PO (10:07)
[2025-02-04] MEDS: RAD-SODIUM CHLORIDE 0.9% 250ML BAG 100 ML IV (11:37)
[2025-02-04] MEDS: LIDOCAINE 1% 10ML MDV IJ (11:37)
== END 2025-02-04 23:59 | disposition home or self-care (01) ==
LOC: RAD 09:51
PROVIDERS: PCP Nurse Practitioner Family; Visit Provider Nurse Practitioner Family
DX: R92.8 Other abnormal and inconclusive findings on diagnostic imaging of breast (principal)
CPT/HCPCS: 19081; 77065; 88305

== ENCOUNTER 2025-04-13 07:14 | Emergency (ER) | payer MEDICARE, MEDICAID, SELFPAY ==
[2025-04-13] VITALS (7 sets, daily range): BP systolic 103–141; BP diastolic 60–85; PULSE 66–90; RESP 20; TEMP 36.5–36.8; O2SAT 94–99; BMI 32.2
[2025-04-13 07:38] LABS: Microscopic, Urine URINE MICROSCOPIC (MICROSCOPIC)
--- NOTE | 2025-04-13 07:40 | CT_ITS ---
PROCEDURE INFORMATION: Exam: CT Abdomen And Pelvis With Contrast Exam date and time: 04/13/2025 8:19 AM Age: 69 years old Clinical indication: Nausea and vomiting and other: Diarrhea; Abdominal pain; Other: B/l lower quad; Additional info: B/l lower quad pain vom diarrhea TECHNIQUE: Imaging protocol: Computed tomography of the abdomen and pelvis with contrast. Radiation optimization: All CT scans at this facility use at least one of these dose optimization techniques: automated exposure control; mA and/or kV adjustment per patient size (includes targeted exams where dose is matched to clinical indication); or iterative reconstruction. Contrast material: ISOVUE; Contrast volume: 75 ml; Contrast route: IV; COMPARISON: CT ABDOMEN PELVIS W CON 09/20/2024 8:10 AM FINDINGS: Lungs: A 4 mm calcified granulomas noted in the left lower lobe. Liver: Normal. No mass. Gallbladder and biliary ducts: Surgical clips are noted in the gallbladder fossa compatible with a prior cholecystectomy. Pancreas: Normal. No ductal dilation. Spleen: Calcified granulomas noted in the spleen. Adrenal glands: Normal. No mass. Kidneys and ureters: The kidneys enhance symmetrically and there is no hydronephrosis. Renal cortical scarring is noted at the left upper pole. Nonobstructing nephrolithiasis is noted measuring up to 11 mm in the left posterior midportion. Parapelvic cysts are noted on the right. Stomach and bowel: The patient is post gastric surgery. There is no evidence for small bowel obstruction. There is segmental mural thickening of the descending and proximal sigmoid colon with inflammatory change in the adjacent paracolic fat. Colonic diverticula are noted Liquid stool is noted throughout the remainder of the colon with relative sparing of the rectum. Appendix: No evidence of appendicitis. Intraperitoneal space: Unremarkable. No free air. No significant fluid collection. Vasculature: The abdominal aorta is normal in course and caliber with calcific atheromatous plaque. Lymph nodes: Unremarkable. No enlarged lymph nodes. Urinary bladder: The urinary bladder is contracted. Reproductive: Unremarkable as visualized. Bones/joints: Degenerative changes are noted the bones of the grade 1 L4-L5 spondylolisthesis. Soft tissues: Unremarkable. IMPRESSION: Segmental colitis, infectious or inflammatory. Diarrhea. Diverticulosis. Renal cortical scarring and nonobstructing nephrolithiasis. 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 COMMENTS: Consistent with the [employer]'s Incidental Findings Committee white paper (J Am Tulio Radiol 2018): Any incidental renal lesion less than 1 cm or classified as too small to characterize, or any incidental cystic renal lesion characterized as simple-appearing, is likely benign. No follow-up imaging is recommended for these lesions per consensus recommendations based on imaging criteria.
--- NOTE | 2025-04-13 07:41 | ECG_ITS ---
APPROVED REPORT Exam: Resting ECG HR:68 bpm ECG Measurements Heart Rate 68 AXES TN 179 P 51 QRSd 86 QRS -30 QT 386 T 47 QTc 403 Conclusion SINUS RHYTHM LOW QRS VOLTAGE IN PRECORDIAL LEADS [QRS DEFLECTION < 1.0 mV IN CHEST LEADS] ANTEROSEPTAL MYOCARDIAL INFARCTION , PROBABLY OLD [40+ ms Q WAVE IN V1-V4] ABNORMAL ECG Electronically signed by : RICHIE GONZALEZ, 04/13/2025 12:24:08
[2025-04-13] MEDS: MORPHINE 4MG/ML SYRINGE 4 MG IV (07:42)
[2025-04-13] MEDS: LACTATED RINGERS 1000ML 1,000 ML 999 ML IV (07:42)
[2025-04-13] MEDS: ONDANSETRON 4MG/2ML VIAL 4 MG IV (07:42)
--- NOTE | 2025-04-13 07:45 | ED_ITS ---
Discharge Plan Disposition Patient Disposition: Home, Self-Care Prescriptions Prescriptions: No Action ondansetron 4 mg tablet,disintegrating 4 mg PO Q8H PRN (Reason: nausea and vomiting) Qty: 30 1RF Repatha SureClick 140 mg/mL pen injector 140 mg SQ Q2W Qty: 2 5RF (DME) blood-glucose meter [Accu-Chek Guide Glucose Meter] Misc See Rx Instructions .Route Qty: 1 0RF Rx Instructions: As directed (DME) Accu-Chek Guide test strips Strip See Rx Instructions .Route Qty: 100 1RF Rx Instructions: As directed daily (DME) lancets [Accu-Chek Softclix Lancets] Misc See Rx Instructions .Route Qty: 100 1RF Rx Instructions: As directed daily Ozempic 1 mg/dose (4 mg/3 mL) pen injector See Rx Instructions .ROUTE .COMPLEX Qty: 9 0RF Dose Instruction: INJECT 1 MG SUBCUTANEOUSLY ONCE A WEEK Rx Instructions: INJECT 1 MG SUBCUTANEOUSLY ONCE A WEEK atorvastatin 80 mg tablet 80 mg PO HS Qty: 30 11RF Patient Comments: TAKE 1 TABLET BY MOUTH ONCE DAILY FOR CHOLESTEROL ramipril 5 mg capsule See Rx Instructions .ROUTE .COMPLEX Qty: 90 3RF Dose Instruction: TAKE 1 CAPSULE BY MOUTH ONCE DAILY FOR HIGH BLOOD PRESSURE Rx Instructions: TAKE 1 CAPSULE BY MOUTH ONCE DAILY FOR HIGH BLOOD PRESSURE clopidogrel 75 mg tablet See Rx Instructions .ROUTE .COMPLEX Qty: 90 3RF Dose Instruction: TAKE 1 TABLET BY MOUTH ONCE DAILY FOR BLOOD THINNER Rx Instructions: TAKE 1 TABLET BY MOUTH ONCE DAILY FOR BLOOD THINNER levocetirizine 5 mg tablet See Rx Instructions .ROUTE .COMPLEX Qty: 30 0RF Dose Instruction: Take 1 tablet by mouth once daily Rx Instructions: Take 1 tablet by mouth once daily pantoprazole 40 mg tablet,delayed release (DR/EC) 40 mg PO DAILY Patient Comments: TAKE 1 TABLET BY MOUTH ONCE DAILY azelastine 137 mcg (0.1 %) spray,non-aerosol 1 spray INTRANASAL DAILY Patient Comments: USE 1 SPRAY(S) IN EACH NOSTRIL EVERY 12 HOURS Referrals Follow up/Referrals: Roxann Olivera APRN [Primary Care Provider, Medical] - See instructions Activity Restrictions/Add. Instructions Additional Instructions/Restrictions: Please takeAt this time it was felt you are safe to be discharged home. If new or worsening symptoms please do not hesitate to return the emergency department. Medicine as prescribed and follow-up with your family doctor early next week as discussed. Please try and stay hydrated is much as possible by drinking water or drinking 50-50 Powerade and water. Clinical Impressions Clinical Impression: Colitis Instructions Patient Instructions: DI for Acute Abdominal Pain Print Language Print Language: Occitan Discharge ED Provider: Lalo Hernandez General Adult HPI General Chief complaint: Abdominal Pain Stated complaint: abd pain diarrhea vomiting Time Seen by Provider: 04/13/25 07:19 Mode of Arrival: Ambulatory Source of Information: Patient and Relative Description of Symptoms (Recalled from ER Triage Doc. by RN): pt is here for lower abd pain x 2 days with n/v/d and hx of diverticulitis History of Present Illness HPI narrative: Patient is a 69-year-old female with past medical history of uid-mvpucvj-zyoanjtnv diabetes, hyperlipidemia, coronary artery disease status post stenting, previous diverticulitis who presents emergency department for evaluation of abdominal pain vomiting and diarrhea. Onset was acute over the last 48 hours however it has become acutely worse over the last 12 hours. Bilateral lower quadrant abdominal pain. Related Data Home Medications ?Medication ?Instructions ?Recorded ?Confirmed azelastine 137 mcg (0.1 %) nasal 1 spray intranasal DA BEN 06/13/24 12/11/24 spray pantoprazole 40 mg tablet,delayed 40 mg PO DAILY 06/1312/11/24 release Previous Rx's ?Medication ?Instructions ?Recorded blood sugar diagnostic (Accu-Chek #100 ea 10/26/23 Guide test strips) blood-glucose meter (Accu-Chek #1 ea 10/26/23 Guide Glucose Meter) lancets (Accu-Chek Softclix #100 ea 10/26/23 Lancets) ondansetron 4 mg disintegrating 4 mg PO Q8H PRN nausea and 08/31/24 tablet vomiting #30 tabs evolocumab 140 mg/mL subcutaneous 140 mg SQ Q2W #2 mL 10/18/24 pen injector (Repatha SureClick) semaglutide 1 mg/dose (4 mg/3 mL) See Rx Instructions .Route 01/29/25 subcutaneous pen injector (Ozempic) .COMPLEX #9 mL atorvastatin 80 mg tablet 80 mg PO HS #30 tabs 03/07/ 5 clopidogrel 75 mg tablet See Rx Instructions .Route 0 03/11/25 .COMPLEX #90 tabs ramipril 5 mg capsule See Rx Instructions .Route 0 03/11/25 .COMPLEX #90 caps levocetirizine 5 mg tablet See Rx Instructions .Route 03/29/25 .COMPLEX #30 tabs Allergies Allergy/AdvReac Type Severity Reaction Status Date / Time codeine (CODEINE) Allergy Mild NA-NAUSEA/V Verified 12/11/24 14:09 OMITING hydrocodone (HYDROCODONE) Allergy Mild NA-NAUSEA/V Verified 12/11/24 14:09 OMITING PFSH PFSH Disclaimer: The information contained in this section may have been updated after the patient was seen, as this information can be updated by other users. Medical History Abnormal nuclear cardiac imaging test History of left heart catheterization Cataract (lens) fragments in eye following cataract surgery, bilateral Dizziness Atypical angina Abnormal cardiovascular stress test Dyspnea Family history of heart disease Gastroesophageal reflux disease Abnormal EKG Near syncope Palpitations Chest pain Surgical History H/O heart artery stent Hx of cholecystectomy History of left knee replacement History of carpal tunnel release H/O gastric bypass Family History Sister Diabetes Father Vasculitis Mother COPD (chronic obstructive pulmonary disease) Social History Smoking Status: Never smoker second hand exposure: No alcohol intake: never substance use type: denies use current occupational status: retired Travel in the last 8 weeks?: None household members: family housing: house 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 current occupational exposures/hazards: No caffeine: Yes Have you lived/traveled outside [place] in past 30 days?: No Contact w/someone who lives/traveled outside US past 30 days?: No Exposure to someone with infectious disease in past 14 days?: No Do you have a fever (greater than 100.4 F or 38 C)?: No Have you tested positive for COVID-19?: No Exposed to someone with COVID-19 in past 14 days?: No Do you have a sore throat?: No Do you have a cough?: No Do you have any weakness?: No Do you have any diarrhea?: Yes Are you experiencing any unusual bleeding?: No Do you have any muscle aches/pain?: No Do you have any abdominal pain?: Yes Are you experiencing loss of taste or smell?: No Other Medical History Have you received the Flu Vaccine for this season: Yes Have you received the Pneumonia Vaccine: No ROS Obtained: Yes Systems reviewed as appropriate & no additional complaints except as documented Physical Exam General General appearance: alert and in no apparent distress Head Head exam: atraumatic and normocephalic Eye Eye exam: Present PERRL and EOMI ENT ENT exam: Present mucous membranes moist Neck Neck exam: Present normal inspection Chest Chest inspection: Present normal inspection and symmetric chest wall rise Respiratory Respiratory exam: Present normal lung sounds bilaterally; Absent respiratory distress Cardiovascular Cardiovascular exam: Present regular rate and normal rhythm Abdominal Exam Abdominal exam: Present soft; Absent tenderness, guarding or rebound Extremities Exam Extremities exam: Present normal inspection Neurological Exam Neurological exam: Present alert Psychiatric Psychiatric exam: Present normal affect Skin Skin exam: Present warm and dry Medical Decision Making Medical Records Screening: Per USPSTF and CDC recommendations, given the prevalence of disease in our region, it is our hospital?s policy to screen for HIV and viral Hepatitis for all patients aged 18 and over and those with ongoing risk factors. Levy Inquiry Pt receiving controlled substance: No Vital Signs: 04/13/25 07:30 04/13/25 07:32 04/13/25 08:00 Temperature 97.7 F Temperature Source Oral Pulse Rate 78 71 Pulse Rate [Left Radial] 90 Respiratory Rate 20 Blood Pressure 107/62 L 106/60 L Blood Pressure [Right Arm] 141/85 H Blood Pressure Mean [Right Arm] 103 02 Sat by Pulse Oximetry 96 97 96 Oxygen Delivery Method Room Air Room Air 04/13/25 08:30 04/13/25 09:00 Temperature Temperature Source Pulse Rate 70 66 Pulse Rate [Left Radial] Respiratory Rate Blood Pressure 111/62 108/62 L Blood Pressure [Right Arm] Blood Pressure Mean [Right Arm] 02 Sat by Pulse Oximetry 99 97 Oxygen Delivery Method Room Air Lab Data Lab Results 04/13/25 07:20: Urine Color [place], Urine Appearance Clear, Urine pH 5.0, Ur Specific [place] >= 1.030, Urine Protein Trace, Urine Glucose (UA) Trace, Urine Ketones 1+, Urine Blood Negative, Urine Nitrate Negative, Urine Bilirubin 2+ A, Urine Urobilinogen 2.0, Ur Leukocyte Esterase Trace, Urine RBC Occasional, Urine WBC Occasional, Ur Squamous Epith Cells 10-20, Urine Bacteria 3+, Hyaline Casts Occ 04/13/25 07:28: WBC 11.6 H, RBC 4.56, Hgb 13.8, Hct 41.3, MCV 90.6, MCH 30.3, MCHC 33.4, RDW 12.8, Plt Count 266, MPV 11.1 H, Neut % (Auto) 80.3 H, Lymph % (Auto) 12.3, [place] % (Auto) 6.2, Eos % (Auto) 0.3, Baso % (Auto) 0.5, Neut # (Auto) 9.3 H, Lymph # (Auto) 1.4, [place] # (Auto) 0.7, Eos # (Auto) 0.0, Baso # (Auto) 0.1, Sodium 139, Potassium 4.4, Chloride 108 H, Carbon Dioxide 25, Anion Gap 10.4, BUN 18 H, Creatinine 0.60, Estimated Creat Clear 62, Estimated GFR 99, Est GFR ( Amer) 120, Glucose 158 H, Calcium 9.1, Magnesium 2.0, Total Bilirubin 1.4 H, AST 27, ALT 20, Alkaline Phosphatase 90, Total Protein 6.9, Albumin 4.2, Globulin 2.7, Albumin/Globulin Ratio 1.6, Lipase 101 04/13/25 07:28 04/13/25 07:28 Orders (Tests/Meds): ED MEDICATIONS Discontinued Medications Generic Name Dose Route Start Last Admin Trade Name Rohan PRN Reason Stop Dose Admin Lactated Ringer's 1,000 mls @ 999 mls/hr 04/13/25 07:40 04/13/25 07:42 Lactated Ringer's 1000 Ml Bag IV 04/13/25 08:40 999 mls/hr .Q1H1M ONE Administration Iopamidol 75 ml 04/13/25 08:25 04/13/25 08:25 Iopamidol-370 (76%);100ml Bottle IV 04/13/25 08:26 75 ml ONCE ONE Administration Morphine Sulfate 4 mg 04/13/25 07:40 04/13/25 07:42 Morphine 4mg/Ml Syringe IV 04/13/25 07:41 4 mg ONCE ONE Administration Ondansetron HCl 4 mg 04/13/25 07:40 04/13/25 07:42 Ondansetron 4mg/2ml Vial IV 04/13/25 07:41 4 mg ONCE ONE Administration Sodium Chloride 10 ml 04/13/25 08:25 04/13/25 08:25 Sodium Chloride 0.9% 10ml Syr (Rad Only) IV 04/13/25 08:26 10 ml ONCE ONE Administration ORDERS Category Date Time Status CT abdomen pelvis w con Stat Cat Scan 04/13/25 07:40 Completed CBC w/Auto Diff [Complete Blood Count Auto Diff] Stat Lab 04/13/25 07:28 Completed CMP [Comprehensive Metabolic Panel] Stat Lab 04/13/25 07:28 Completed Lipase Stat Lab 04/13/25 07:28 Completed MG [Magnesium] Stat Lab 04/13/25 07:28 Completed UA [Urinalysis and Microscopic] Stat Lab 04/13/25 07:20 Completed Urine Culture Stat Micro 04/13/25 07:20 Received EKG Request [ECG Request] Stat Y 04/13/25 07:41 Ordered ECG Data Tracing #1: Independently interpreted by me rate is 68, rhythm is regular, axis is borderline left deviated, no ST elevation in anatomical contiguous leads, QTc 423 Medical Decision Narrative: In summary patient is 69-year-old female with past medical history described above who presents emergency department for evaluation of vomiting and lower abdominal pain. Patient is hemodynamically stable nontoxic-appearing arrival, afebrile. Differential diagnosis includes recurrent diverticulitis, malignancy, gastroenteritis, atypical presentation for a kidney stone, among others. Workup will be conducted with hematologic labs, urinalysis, EKG, CT of the abdomen pelvis with IV contrast. Initial inventions include Zofran, crystalloid bolus, morphine. Initial workup reviewed by me hematologic labs are nonactionable no significant leukocytosis, no acute anemia no DONNA or critical electrolyte abnormality glucose 158 without elevated anion gap no transaminitis normal lipase. Urinalysis 3+ bacteria leuk esterase trace nitrate negative with contamination. Given that patient does not have any overt dysuria will not treat as UTI for now. CT imaging informally visualized by me there appears to be some inflammation of the descending colon. Formal impression of segmental colitis infectious or inflammatory with diarrhea and diverticulosis. Upon repeat evaluation patient was well-appearing. Given segmental colitis not in a vascular distribution I have no concern for ischemic colitis at this time. Patient did not have to have a bowel movement so stool study will be deferred given her labs and that she is otherwise well-appearing and symptoms are under control. She was instructed to follow-up early next week with her PCP for continued evaluation and possible stool study at that time will be discharged with a course of Zofran was given return precautions. Critical Care Critical Care Time Critical Care Time: No
[2025-04-13 07:50] LABS: Appearance,Urine CLEAR (Clear); Blood, Urine Negative (Negative); Glucose,Urine (UA) TRACE (Negative); Ketones,Urine 1+ (Negative); Leukocyte Esterase,Urine TRACE (Negative); Nitrate,Urine Negative (Negative); Protein,Urine TRACE (Negative); Specific Gravity, Urine >= 1.030 (1.005-1.030)
[2025-04-13 07:54] LABS: Albumin Level 4.2 g/dl (3.5-5.0); Chloride 108 mmol/L (98-107); Potassium 4.4 mmoL/L (3.5-5.1); Sodium 139 mmol/L (136-145)
[2025-04-13 07:56] LABS: Basophils # 0.1 K/mm3 (0-0.2); Basophils % 0.5 % (0.1-2.0); Eosinophils % 0.3 % (0.1-12.0); Hematocrit 41.3 % (37.0-47.0); Hemoglobin 13.8 g/dL (12.2-16.2); Immature Granulocytes # 0.05 10^3uL; Immature Granulocytes % 0.4 %; Lymphocytes # 1.4 K/mm3 (0.7-4.5); Lymphocytes % 12.3 % (10-50); Mean Corpuscular HGB Conc 33.4 g/dL (31.8-35.4); Mean Corpuscular Hemoglobin 30.3 pg (27.0-31.2); Mean Corpuscular Volume 90.6 fl (81-99); Mean Platelet Volume 11.1 fl (7.4-10.4); Monocytes # 0.7 K/mm3 (0.1-1.0); Monocytes % 6.2 % (1.7-9.3); Neutrophils # 9.3 K/mm3 (1.8-7.8); Neutrophils % 80.3 % (37.0-80.0); Nucleated Red Blood Cells # 0 10^3/uL; Nucleated Red Blood Cells % 0 %; Platelet Count 266 K/mm3 (142-424); Red Blood Count 4.56 M/mm3 (4.20-5.40); Red Cell Distribution Width 12.8 % (11.5-17.5); Red Cell Distribution Width-SD 42.3 fL; White Blood Count 11.6 K/mm3 (4.8-10.8)
[2025-04-13 07:57] LABS: Alanine Aminotransferase 20 U/L (12-78); Albumin/Globulin Ratio 1.6 (1.1-1.8); Alkaline Phosphatase 90 U/L (38-126); Anion Gap 10.4 mEq/L (5-15); Aspartate Amino Transferase 27 U/L (14-36); Bilirubin,Total 1.4 mg/dl (0.2-1.3); Blood Urea Nitrogen 18 mg/dl (7-17); Calcium 9.1 mg/dl (8.4-10.2); Carbon Dioxide 25 mmol/L (22.0-30.0); Creatinine Clearance Estimated 62 mL/min (50-200); Estimated Glomerular Filt Rate 99 ml/min (>60); GFR (African American) 120 ML/MIN (>60); Globulin 2.7 g/dL (1.3-3.2); Glucose 158 mg/dl (74-100); Lipase 101 U/L (23-300); Total Protein,Serum 6.9 g/dl (6.3-8.2)
[2025-04-13 08:16] LABS: Bilirubin,Urine 2+ (Negative); Color,Urine Amber (Yellow)
[2025-04-13 08:17] LABS: Bacteria,Urine 3+ /lpf; Hyaline Casts,Urine OCC #/lpf (0); RBC,Urine Occasional #/hpf (0-3); WBC,Urine Occasional #/hpf (0-3)
[2025-04-13] MEDS: IOPAMIDOL-370 (76%);100ML BOTTLE 75 ML IV (08:25)
[2025-04-13] MEDS: SODIUM CHLORIDE 0.9% 10ML SYR (RAD ONLY) 10 ML IV (08:25)
--- NOTE | 2025-04-13 09:37 | PC.NURSE ---
gave pt water per MD
--- NOTE | 2025-04-17 09:32 | PC.NURSE ---
Attempted to call patient regarding urine culture results. No answer, left message. Will attempt to call later.
--- NOTE | 2025-04-17 18:26 | PC.NURSE ---
Per Dr. Hernandez- called to check on patient. Patient denies any urinary symptoms at this time. States she only has a headache and slight diarrhea/stomach cramping.
== END 2025-04-13 09:55 | disposition home or self-care (01) ==
PROVIDERS: Emergency Provider Emergency Medicine; PCP Nurse Practitioner Family
DX: R10.30 Lower abdominal pain, unspecified (principal); K52.9 Noninfective gastroenteritis and colitis, unspecified; R11.2 Nausea with vomiting, unspecified
CPT/HCPCS: 74177; 80053; 81001; 83690; 83735; 85025; 87086; 87088; 87186; 93005; 96361; 96374; 96375; 99285; J2270; J2405; J7120; Q9967

== ENCOUNTER 2025-04-15 14:09 | Outpatient (CLI) | payer MEDICARE, MEDICAID, SELFPAY ==
[2025-04-15 17:07] LABS: Basophils # 0.1 K/mm3 (0-0.2); Basophils % 0.7 % (0.1-2.0); Eosinophils # 0.1 Kmm3 (0.0-0.4); Eosinophils % 1.7 % (0.1-12.0); Hematocrit 41.1 % (37.0-47.0); Hemoglobin 13.5 g/dL (12.2-16.2); Immature Granulocytes # 0.03 10^3uL; Immature Granulocytes % 0.4 %; Lymphocytes # 1.7 K/mm3 (0.7-4.5); Lymphocytes % 22.4 % (10-50); Mean Corpuscular HGB Conc 32.8 g/dL (31.8-35.4); Mean Corpuscular Hemoglobin 29.8 pg (27.0-31.2); Mean Corpuscular Volume 90.7 fl (81-99); Mean Platelet Volume 11.1 fl (7.4-10.4); Monocytes # 0.6 K/mm3 (0.1-1.0); Monocytes % 7.9 % (1.7-9.3); Neutrophils % 66.9 % (37.0-80.0); Nucleated Red Blood Cells # 0 10^3/uL; Nucleated Red Blood Cells % 0 %; Platelet Count 258 K/mm3 (142-424); Red Blood Count 4.53 M/mm3 (4.20-5.40); Red Cell Distribution Width 12.6 % (11.5-17.5); Red Cell Distribution Width-SD 41.2 fL; White Blood Count 7.5 K/mm3 (4.8-10.8)
[2025-04-15 18:04] LABS: Alanine Aminotransferase 14 U/L (12-78); Albumin/Globulin Ratio 1.5 (1.1-1.8); Alkaline Phosphatase 85 U/L (38-126); Aspartate Amino Transferase 26 U/L (14-36); Bilirubin,Total 1.4 mg/dl (0.2-1.3); Blood Urea Nitrogen 12 mg/dl (7-17); Carbon Dioxide 29 mmol/L (22.0-30.0); Chloride 103 mmol/L (98-107); Estimated Glomerular Filt Rate 99 ml/min (>60); GFR (African American) 120 ML/MIN (>60); Globulin 2.6 g/dL (1.3-3.2); Glucose 74 mg/dl (74-100); Sodium 137 mmol/L (136-145); Total Protein,Serum 6.6 g/dl (6.3-8.2)
[2025-04-15 18:07] LABS: Anion Gap 9.7 mEq/L (5-15); Potassium 4.7 mmoL/L (3.5-5.1)
== END 2025-04-15 23:59 | disposition home or self-care (01) ==
LOC: LAB.DROPOF 04-16 11:54
PROVIDERS: PCP Nurse Practitioner Family; Visit Provider Nurse Practitioner Family
DX: K52.9 Noninfective gastroenteritis and colitis, unspecified (principal)
CPT/HCPCS: 80053; 85025

== ENCOUNTER 2025-04-16 09:19 | Outpatient (CLI) | payer MEDICARE, MEDICAID, SELFPAY ==
[2025-04-16 09:21] LABS: Adenovirus F 40/41, stool Not Detected (NotDetected); Astrovirus Not Detected (NotDetected); Campylobacter Not Detected (NotDetected); Clostridium Difficile A/B, PCR Not Detected (NotDetected); Cryptosporidium Not Detected (NotDetected); Cyclospora Cayetanesis Not Detected (NotDetected); Entamoeba histolytica Not Detected (NotDetected); Enteroaggregative E coli Not Detected (NotDetected); Enteropathogenic E coli Not Detected (NotDetected); Enterotoxigenic E coli Not Detected (NotDetected); Giardia lamblia Not Detected (NotDetected); Plesimonas Shigalloides, PCR Not Detected (NotDetected); Rotavirus A Not Detected (NotDetected); Salmonella, PCR Not Detected (NotDetected); Sapovirus Not Detected (NotDetected); Shiga-like toxin E coli Not Detected (NotDetected); Shigella Enterovasive E coli Not Detected (NotDetected); Vibrio Cholerae Not Detected (NotDetected); Vibrio, PCR Not Detected (NotDetected); Yersinia Entercolitica, PCR Not Detected (NotDetected)
[2025-04-16 13:56] LABS: Norovirus Detected (NotDetected)
== END 2025-04-16 23:59 | disposition home or self-care (01) ==
LOC: LAB 09:20
PROVIDERS: PCP Nurse Practitioner Family; Visit Provider Nurse Practitioner Family
DX: K52.9 Noninfective gastroenteritis and colitis, unspecified (principal)
CPT/HCPCS: 80053; 85025; 87506

== ENCOUNTER 2025-04-19 14:52 | Outpatient (CLI) | payer MEDICARE, MEDICAID, SELFPAY ==
--- OUTSIDE RECORDS SUMMARY | 2025-04-19 14:54 | XMS_ITS | Clinical Summary ---
Author Organization Healthcare Address [address] [place] [address] Care Team Providers Care Dietitian Therapeutic Name Role Phone Jamie Delgado MD Primary Care Provider [phone] Social History Tobacco Use Types Packs/Day Years Used Date Smoking Tobacco: Never Assessed Comments Unknown Sex and Gender Information Value Date Recorded Sex Assigned at Not on file Legal Sex Female 8:05 PM EDT Gender Identity Not on file Sexual Orientation Not on file Last Filed Vital Signs Vital Sign Reading Time Taken Comments Blood Pressure - - Pulse - - Temperature - - Respiratory Rate - - Oxygen Saturation - - Inhaled Oxygen Concentration - - Weight 103 kg (228 lb 2.5 oz) 04/16/2015 12:23 P M EDT Height 152.4 cm (5') 04/16/2015 12:23 PM EDT Body Mass Index 44.56 04/16/2015 12:23 PM EDT Plan of Treatment Not on file Care Teams Dietitian Therapeutic Relationship Specialty Start Date End Date Jamie Delgado MD [address] [place] [address] PCP - General 03/27/21
[2025-04-19 18:18] LABS: Microalbumin/Creatinine Ratio 16.6
[2025-04-19 18:32] LABS: Creatinine,Urine Random 114 mg/dL (Not Estab.)
== END 2025-04-19 23:59 | disposition home or self-care (01) ==
LOC: LAB.DROPOF 14:52
PROVIDERS: PCP Nurse Practitioner Family; Visit Provider Nurse Practitioner Family
DX: E11.69 Type 2 diabetes mellitus with other specified complication (principal)
CPT/HCPCS: 82043; 82570

== ENCOUNTER 2025-08-01 10:59 | Outpatient (CLI) | payer MEDICARE, MEDICAID, SELFPAY ==
--- OUTSIDE RECORDS SUMMARY | 2025-08-01 11:01 | XMS_ITS | Clinical Summary ---
Author Organization Healthcare Address [address] [place] [address] Care Team Providers Care Meeting Manager Name Role Phone Jamie Delgado MD Primary Care Provider [phone] Social History Tobacco Use Types Packs/Day Years [...] of Treatment Not on file Care Teams Meeting Manager Relationship Specialty Start Date End Date Jamie Delgado MD [address] [place] [address] PCP - General 03/27/21
[2025-08-01 12:33] LABS: Albumin Level 4.0 g/dl (3.5-5.0)
[2025-08-01 12:35] LABS: Alanine Aminotransferase 12 U/L (12-78); Aspartate Amino Transferase 22 U/L (14-36); Bilirubin,Unconjugated 1.0 mg/dL (0.0-1.1); Total Protein,Serum 6.6 g/dl (6.3-8.2)
[2025-08-01 12:36] LABS: Alkaline Phosphatase 70 U/L (38-126); Bilirubin,Direct 0.1 mg/dl (0.0-0.4); Bilirubin,Indirect 0.9 mg/dL (0.0-0.9); Bilirubin,Total 1.0 mg/dl (0.2-1.3); Cholesterol 132 mg/dl (140-200); HDL Cholesterol 60 mg/dl (40-60); Triglycerides 70 mg/dl (30-150)
== END 2025-08-01 23:59 | disposition home or self-care (01) ==
LOC: LAB 10:59
PROVIDERS: PCP Nurse Practitioner Family; Visit Provider Physician Assistant
DX: I25.10 Atherosclerotic heart disease of native coronary artery without angina pectoris (principal)
CPT/HCPCS: 36415; 80061; 80076

== ENCOUNTER 2025-10-29 11:46 | Outpatient (CLI) | payer MEDICARE, SELFPAY ==
--- NOTE | 2025-10-29 11:48 | XR_ITS ---
FINAL REPORT TECHNIQUE: 3 views left knee CLINICAL HISTORY: knee pain COMPARISON: None FINDINGS: LEFT KNEE: 3 images of the left knee were obtained. The patient is post total knee arthroplasty. There is no evidence of fracture or dislocation. The hardware is intact. The joint spaces are intact. There is no soft tissue abnormality identified. IMPRESSION: Prior total hip arthroplasty without acute osseous abnormality. Reviewed, Interpreted and Dictated by Jese Luna MD Transcribed by Natalia Iglesias Authenticated and [facility]
--- OUTSIDE RECORDS SUMMARY | 2025-10-29 11:53 | XMS_ITS | Clinical Summary ---
Author Organization Healthcare Address [address] [place] [address] Care Team Providers Care Rigger Chief Name Role Phone Jamie Delgado MD Primary Care Provider [phone] Social History Tobacco Use Types Packs/Day Years [...] of Treatment Not on file Care Teams Rigger Chief Relationship Specialty Start Date End Date Jamie Delgado MD [address] [place] [address] PCP - General 03/27/21
== END 2025-10-29 23:59 | disposition home or self-care (01) ==
LOC: RAD 11:46
PROVIDERS: PCP Nurse Practitioner Family; Visit Provider Nurse Practitioner
DX: M25.562 Pain in left knee (principal); Z96.652 Presence of left artificial knee joint
CPT/HCPCS: 73562

== ENCOUNTER 2025-11-11 12:15 | Outpatient (CLI) | payer MEDICARE, MEDICAID, SELFPAY ==
--- OUTSIDE RECORDS SUMMARY | 2025-11-11 12:17 | XMS_ITS | Clinical Summary ---
Author Organization Healthcare Address [address] [place] [address] Care Team Providers Care Fan Runner Name Role Phone Jamie Delgado MD Primary Care Provider [phone] Social History Tobacco Use Types Packs/Day Years [...] of Treatment Not on file Care Teams Fan Runner Relationship Specialty Start Date End Date Jamie Delgado MD [address] [place] [address] PCP - General 03/27/21
[2025-11-11 12:36] LABS: Blood Urea Nitrogen 12 mg/dl (7-17); Creatinine,Serum 0.70 mg/dl (0.52-1.04); Estimated Glomerular Filt Rate 82 ml/min (>60); GFR (African American) 100 ML/MIN (>60)
== END 2025-11-11 23:59 | disposition home or self-care (01) ==
LOC: LAB 12:16
PROVIDERS: PCP Nurse Practitioner Family; Visit Provider Nurse Practitioner Family
DX: M25.562 Pain in left knee (principal); M25.462 Effusion, left knee; R42 Dizziness and giddiness; Z96.652 Presence of left artificial knee joint
CPT/HCPCS: 36415; 82565; 84520

== ENCOUNTER 2025-11-12 07:54 | Outpatient (CLI) | payer MEDICARE, MEDICAID, SELFPAY ==
--- OUTSIDE RECORDS SUMMARY | 2025-11-12 07:56 | XMS_ITS | Clinical Summary ---
Author Organization Healthcare Address [address] [place] [address] Care Team Providers Care Design Lead Name Role Phone Jamie Delgado MD Primary Care Provider [phone] Social History Tobacco Use Types Packs/Day Years [...] of Treatment Not on file Care Teams Design Lead Relationship Specialty Start Date End Date Jamie Delgado MD [address] [place] [address] PCP - General 03/27/21
--- NOTE | 2025-11-12 08:00 | MR_ITS ---
FINAL REPORT TECHNIQUE: Multiplanar and multisequence imaging of the brain was obtained without contrast. CLINICAL HISTORY: dizziness for a while per patient FINDINGS: Brain parenchymal: There is no mass effect or midline shift. There are mild periventricular white matter changes. The cerebellum and brainstem are without acute abnormality. Ventricles: The ventricles are symmetric in size and configuration without hydrocephalus. Extra-axial spaces: No extra-axial fluid collections. Diffusion imaging: No areas of restricted diffusion to suggest acute infarct. Flow voids: Flow voids within the major intracranial vessels are preserved. Soft tissues: There are air-fluid levels in the bilateral maxillary sinuses. IMPRESSION: Mild periventricular white matter changes, likely chronic small vessel ischemia. Bilateral maxillary sinusitis. Reviewed, Interpreted and Dictated by Chanell Castano MD Transcribed by Yulia Adkins Authenticated and [facility]
--- NOTE | 2025-11-12 08:45 | MR_ITS ---
FINAL REPORT TECHNIQUE: Multiplanar and multisequence imaging of the left knee was obtained without and with contrast. CLINICAL HISTORY: left anterior/lateral knee pain and swelling constant pain for a few months , no injury's knee replacement x 10 years ago COMPARISON: 02/21/2024 FINDINGS: Bones: There are changes of total knee arthroplasty. Hardware limits evaluation. There is no acute fracture or marrow edema. Menisci: Not visualized. Ligaments: Cruciate ligaments are not visualized. Collateral ligaments appear intact. Tendons/Muscles: Quadriceps and patellar tendons appear intact. Medial and lateral tendons appear intact within the limitations of the exam. Other: Small joint effusion, similar to prior exam. Remaining soft tissues are normal. No gross abnormal contrast-enhancement is seen. IMPRESSION: Changes of total knee arthroplasty which significantly limits exam. Exam appears relatively unchanged from prior. Small residual joint effusion. No gross evidence of hardware complication. Reviewed, Interpreted and Dictated by Chanell Castnao MD Transcribed by Kristine Maurer Authenticated and . [facility]
--- NOTE | 2025-11-12 09:45 | CA_ITS ---
FINAL REPORT TECHNIQUE: Parra scale, color and spectral doppler images of the bilateral carotid arteries were obtained. CLINICAL HISTORY: CANDIE, dizziness FINDINGS: Peak systolic velocity in the right internal carotid artery is 96 cm/sec. The internal carotid to common carotid artery ratio is 1.2. There is no significant carotid artery stenosis. There is mild plaque formation. The right vertebral artery is normal in direction. Peak systolic velocity in the left internal carotid artery is 84 cm/sec. The internal carotid to common carotid artery ratio is 1.3. There is no significant carotid artery stenosis. The is minimal plaque formation. The left vertebral artery is normal in direction. IMPRESSION: Less than 50% carotid stenosis bilaterally. Reviewed, Interpreted and Dictated by Chanell Castano MD Transcribed by Yulia Adkins Authenticated and [facility]
[2025-11-12] MEDS: GADOTERIDOL INJ 20ML SYRINGE 15 ML IV (10:21)
[2025-11-12] MEDS: SODIUM CHLORIDE 0.9% 10ML SYR (RAD ONLY) 10 ML IV (10:21)
== END 2025-11-12 23:59 | disposition home or self-care (01) ==
LOC: RAD 07:54
PROVIDERS: PCP Nurse Practitioner Family; Visit Provider Nurse Practitioner Family
DX: I65.23 Occlusion and stenosis of bilateral carotid arteries (principal); J32.0 Chronic maxillary sinusitis; M25.562 Pain in left knee; M25.462 Effusion, left knee; R90.82 White matter disease, unspecified; R42 Dizziness and giddiness; Z96.652 Presence of left artificial knee joint
CPT/HCPCS: 70551; 73723; 93880; A9576